=== PATIENT | female | born 1940 | race Caucasian/White ===

== ENCOUNTER 2020-05-10 09:49 | Outpatient (CLI) | payer MEDICARE, SELFPAY ==
--- NOTE | ~2020-05-10 | MR_ITS ---
EXAMINATION: MR brain/brain stem wo con DATE: 05/10/2020 11:51 INDICATION: Glial tumor. Dizziness. TECHNIQUE: Magnetic resonance imaging (MRI) of the brain and brainstem was performed without intraven ous contrast. Sequences included sagittal and axial T1-weighted FSE, axial diffusion-weighted FS EPI, axial T2*-weighted GRE, axial T2-weighted FLAIR Propeller, and axial T2-weighted Propeller. Apparent diffusion coefficient (ADC) maps were created. COMPARISON: None. FINDINGS: In the anteromedial left temporal lobe, there is a 1.5 cm mass is isodense to moore matter o n T1-weighted and T2-weighted images. It is not clear if the mass is intra-axial or extra-axial. Ther e is vasogenic edema in the adjacent white matter. There are scattered areas of nonspecific increased T2-weighted signal intensity elsewhere in the cerebral white matter, which is within normal limits f or the patient's age. There is no intracranial hemorrhage or acute ischemic infarct. The ventricles are normal in size. There is a small left mastoid effusion. The orbits are normal. There is mild muco golden thickening in the ethmoid sinuses. IMPRESSION: 1. 1.5 cm mass in left temporal lobe. The differential diagnosis includes metastatic disease, glioma, and meningioma. Consider postcontrast brain MRI. Reviewed, dictated and finalized at location A. [facility] IMPRESSION: 1. 1.5 cm mass in left temporal lobe. The differential diagnosis includes metas tatic disease, glioma, and meningioma. Consider postcontrast brain MRI.
[2020-05-10 10:28] LABS: Estimated Glomerular Filt Rate 47
== END 2020-05-10 09:50 | disposition home or self-care (01) ==
LOC: CHSIMG 09:55
PROVIDERS: PCP Internal Medicine; Visit Provider Internal Medicine
DX: D49.6 Neoplasm of unspecified behavior of brain (principal)
CPT/HCPCS: 70551

== ENCOUNTER 2020-05-17 10:25 | Outpatient (CLI) | payer MEDICARE, BC, SELFPAY ==
--- NOTE | ~2020-05-17 | MR_ITS ---
EXAMINATION: MR brain/brain stem w con EXAM DATE: 05/17/2020 11:32 INDICATION: Glial tumor/dizziness brain mass, dizziness. Memory issues. TECHNIQUE: Magnetic resonance imaging (MRI) of the brain/brain stem following injection with 20 cc in travenous Multihance contrast. Axial, sagittal and coronal postcontrast T1 weighted sequences obtaine d. Correlation is made to noncontrast brain MRI examination from 05/10/2020. FINDINGS: There is homogeneously enhancing solid mass which is suspected most likely extra-axial give n the small dural tails, and projecting into the left temporal lobe. This measures 1.7 x 1.4 cm. Appe arance to the mass is most consistent with a meningioma. The amount of associated vasogenic edema wit hin the left temporal lobe identified on the previous noncontrast study is more than typically seen f or a meningioma of this size. Therefore exclude more aggressive faster growing histology such as dura l metastatic disease. Most likely not intraparenchymal or primary FLIGHT TEACHER neoplasm. No either areas of abnormal enhancement or masses. No obstructive hydrocephalus or extra-axial collec tions. IMPRESSION: Left temporal dural based mass appearance most consistent with meningioma, but given the amount of associated left temporal vasogenic edema other histology should be considered as well as n eurosurgical consult. 3 month follow-up MR brain without and with contrast. Reviewed, dictated and finalized at location B. CASE MANAGER IMPRESSION: Left temporal dural based mass appearance most consistent with men ingioma, but given the amount of associated left temporal vasogenic edema other histology should be considered as well as neurosurgical consult. 3 month follo w-up MR brain without and with contrast.
== END 2020-05-17 10:26 | disposition home or self-care (01) ==
LOC: CHSIMG 10:27
PROVIDERS: PCP Internal Medicine; Visit Provider Internal Medicine
DX: R42 Dizziness and giddiness (principal); D49.6 Neoplasm of unspecified behavior of brain
CPT/HCPCS: 70552; A9577

== ENCOUNTER 2020-05-31 09:54 | Outpatient (CLI) | payer MEDICARE, BC, SELFPAY ==
--- NOTE | ~2020-05-31 | MR_ITS ---
EXAMINATION: MR cervical spine wo con DATE: 05/31/2020 11:03 INDICATION: Dizziness. Fall. Disorientation. TECHNIQUE: Magnetic resonance imaging (MRI) of the cervical spine was performed without intravenous c ontrast. Sequences included sagittal T2-weighted FSE, sagittal T2-weighted FS FSE, sagittal T1-weight ed FSE, axial MERGE, and axial T2-weighted FSE. COMPARISON: Brain MRI 05/17/2020, 05/10/2020 FINDINGS: Partially visualized is a 14 mm extra-axial mass at the inferior aspect of left temporal lo be consistent with a meningioma. There is associated vasogenic edema. Bone alignment is normal. Verte bral body heights are normal. There is mildly decreased disc height at C3-C4, moderately decreased di sc height at C5-C5 and C5-C6, and severely decreased disc height at C6-C7. The spinal cord signal int ensity is normal. The following disc levels are specifically discussed: C2-C3: The disc does not extend beyond the endplate margin. There is no uncovertebral joint osteoarth ritis. There is severe right and mild left facet joint osteoarthritis. There is no neural foraminal s tenosis. There is no central canal stenosis. C3-C4: The disc is bulging. There is mild bilateral uncovertebral joint osteoarthritis. There is bridget re bilateral facet joint osteoarthritis. There is mild left neural foraminal stenosis. There is no ce ntral canal stenosis. C4-C5: The disc is bulging. There is moderate right and mild left uncovertebral joint osteoarthritis. There is severe bilateral facet joint osteoarthritis. There is moderate right and mild left neural f oraminal stenosis. There is mild central canal stenosis with ventral indentation of the spinal cord. C5-C6: The disc is bulging. There is severe bilateral uncovertebral joint osteoarthritis. There is se santiago bilateral facet joint osteoarthritis. There is mild bilateral neural foraminal stenosis. There i s mild central canal stenosis. C6-C7: The disc is bulging. There is severe bilateral uncovertebral joint osteoarthritis. There is mo derate bilateral facet joint osteoarthritis. There is mild bilateral neural foraminal stenosis. There is mild central canal stenosis. C7-T1: The disc does not extend beyond the endplate margin. There is no uncovertebral joint osteoarth ritis. There is severe bilateral facet joint osteoarthritis. There is mild bilateral neural foraminal stenosis. There is no central canal stenosis. IMPRESSION: 1. Severe cervical spondylosis. 2. 14 mm extra-axial mass inferior to left temporal lobe, consistent with a meningioma. Reviewed, dictated and finalized at location A. R LEAGUE BASEBALL UMPIRE IMPRESSION: 1. Severe cervical spondylosis. 2. 14 mm extra-axial mass inferior to left temporal lobe, consistent with a men ingioma.
== END 2020-05-31 09:55 | disposition home or self-care (01) ==
LOC: CHSIMG 09:57
PROVIDERS: PCP Internal Medicine
DX: M54.2 Cervicalgia (principal); R42 Dizziness and giddiness; W19.XXXA Unspecified fall, initial encounter; M47.892 Other spondylosis, cervical region
CPT/HCPCS: 72141

== ENCOUNTER 2020-11-09 10:17 | Outpatient (CLI) | payer MEDICARE, BC, SELFPAY ==
--- NOTE | ~2020-11-09 | XR_ITS ---
EXAMINATION: XR shoulder RT min 2V INDICATION: Right shoulder pain TECHNIQUE: Four views of the right shoulder are submitted. COMPARISON: None FINDINGS: Normal alignment. No fracture. There is mild osteoarthritis of the acromioclavicular joint and moderate osteoarthritis of the glenohumeral joint which contains calcified loose bodies. Soft tis sues are unremarkable. IMPRESSION: 1. Osteoarthritis. Reviewed, dictated and finalized at location A. IMPRESSION: 1. Osteoarthritis.
== END 2020-11-09 10:18 | disposition home or self-care (01) ==
LOC: CHSIMG 10:22
PROVIDERS: PCP Internal Medicine; Visit Provider Internal Medicine
DX: M25.511 Pain in right shoulder (principal)
CPT/HCPCS: 73030

== ENCOUNTER 2020-11-25 10:20 | Inpatient (IN) | payer MEDICARE, BC, SELFPAY ==
[2020-11-25] VITALS (10 sets, daily range): BP systolic 126–205; BP diastolic 88–99; PULSE 70–90; RESP 18–22; TEMP 36–36.6; O2SAT 92–96; BMI 43.9
--- NOTE | ~2020-11-25 | XR_ITS ---
EXAMINATION: XR chest 2V DATE: 11/26/2020 09:12 INDICATION: Congestive heart failure. TECHNIQUE: Frontal and lateral views of the chest were obtained. COMPARISON: Chest single view 11/25/2020, chest CT 11/25/2020 FINDINGS: There are small pleural effusions. There is mild atelectasis at left lung base. No pneumoth orax. Cardiomegaly is noted. IMPRESSION: 1. Small pleural effusions. 2. Cardiomegaly. Reviewed, dictated and finalized at location A.
--- NOTE | ~2020-11-25 | CT_ITS ---
EXAMINATION: CTA chest PE protocol DATE: 11/25/2020 12:16 INDICATION: Shortness of breath. TECHNIQUE: Computed tomography angiography (CTA) of the chest was performed with 100 mL Omnipaque-350 intravenous contrast timed to evaluate the pulmonary arteries. Coronal maximum intensity projection 3D-reconstructions were created by the technologist. Automated exposure control and iterative reconst ruction technique were employed. The dose-length product was 633.68 mGy-cm. COMPARISON: None. FINDINGS: The lungs demonstrate smooth septal thickening, consistent with mild pulmonary edema. A juan jose cified left lung nodule and calcified left hilar lymph nodes are consistent with old granulomatous di sease. There are small pleural effusions. Cardiomegaly is noted. There are coronary artery calcificat ions. No pericardial effusion. The central pulmonary arteries are enlarged, consistent with pulmonary arterial hypertension. There is no pulmonary embolus. The superior vena cava is duplicated. There is moderate thoracic spondylosis. IMPRESSION: 1. No pulmonary embolus. 2. Mild pulmonary edema. 3. Small pleural effusions. 4. Cardiomegaly. Reviewed, dictated and finalized at location A.
--- NOTE | ~2020-11-25 | XR_ITS ---
EXAMINATION: XR chest 1V portable DATE: 11/25/2020 11:23 INDICATION: Shortness of breath. TECHNIQUE: A single frontal view of the chest was obtained. COMPARISON: None. FINDINGS: There are interstitial opacities in the lower lung zones. There are small pleural effusions . No pneumothorax. The heart size is normal. IMPRESSION: 1. Interstitial opacities in the lower lung zones, consistent with mild atelectasis versus mild pulmo nary edema. 2. Small pleural effusions. Reviewed, dictated and finalized at location A. IMPRESSION: 1. Interstitial opacities in the lower lung zones, consistent with mild atelect asis versus mild pulmonary edema. 2. Small pleural effusions.
--- NOTE | 2020-11-25 10:43 | ECG_ITS ---
Measurements Intervals [place] Rate: 86 P: 66 CO: 224 QRS: -11 QRSD: 85 T: 132 QT: 385 QTc: 461 Interpretive Statements SINUS RHYTHM WITH FIRST DEGREE AV BLOCK LEFT VENTRICULAR HYPERTROPHY AND ST-T CHANGE BASELINE ARTIFACT- I, II, III, AVR, AVL, AVF, V4-V6 ABNORMAL ECG Electronically Signed On 11-26-2020 7:12:09 CDT by Robb Copeland D.O.
[2020-11-25 11:26] LABS: Base Excess ABG 2.1 mmol/L (0-2); HCO3 ABG 26.4 mmol/L (23-29); PO2 ABG 68.6 mmHg (75-85); pH ABG 7.44 (7.35-7.45)
[2020-11-25 11:27] LABS: Device ROOM AIR; Modified Allen's Test Pass; Oxygen Saturation ABG 94.3 % (95-97); Site Drawn LEFT RADIAL
[2020-11-25 11:30] LABS: Add Urine Microscopic? YES; Appearance Urine Sl Cloudy (Clear); Bilirubin Urine Negative (Negative); Blood Urine Negative (Negative); Color Urine Light Yellow (Yellow); Glucose Urine UA Negative (Negative); Ketones Urine Negative (Negative); Leukocyte Esterase Ur Negative (Negative); Nitrate Urine Negative (Negative); Protein Urine Trace (Negative); Specific Grav Ur >= 1.030 (1.010-1.020); Urobilinogen Urine 0.2 mg/dL (0.2-1.0)
[2020-11-25 11:30] LABS: Basophils Absolute Auto 0.06 K/mm3 (0.00-0.10); Basophils Percent Auto 0.8 % (0.0-1.0); Eosinophils Absolute Auto 0.33 K/mm3 (0.02-0.50); Eosinophils Percent Auto 4.5 % (1.0-6.0); Hematocrit 41.9 % (35.0-42.0); Hemoglobin 12.7 g/dL (11.7-13.8); Immature Granulocyte Absolute 0.02 K/mm3 (0.00-0.00); Immature Granulocyte Percent A 0.3 % (0.0-0.0); Mean Corpuscular HGB Conc 30.3 g/dL (32.0-36.0); Mean Corpuscular Hemoglobin 24.8 pg (27.0-31.0); Mean Corpuscular Volume 81.7 fL (78.0-102.0); Mean Platelet Volume 10.7 fl (9.2-11.8); Monocytes Absolute Auto 0.55 K/mm3 (0.10-0.90); Monocytes Percent Auto 7.5 % (2.0-11.0); Neutrophils Absolute Auto 4.5 K/mm3 (1.7-7.2); Neutrophils Percent Auto 60.9 % (50.0-70.0); Platelet Count Result 274 K/mm3 (150-420); Red Blood Count 5.13 M/mm3 (4.20-5.40); White Blood Count 7.3 K/mm3 (4.8-10.8)
[2020-11-25 11:35] LABS: Bacteria Urine 1+ /hpf; RBC Urine None seen /hpf (0-2); Squamous Epithelial Cell Urine Moderate /hpf (Few); WBC Urine 0-3 /hpf (0-3)
[2020-11-25 11:37] LABS: INR 1.1; Partial Thromboplastin Time 21.2 SEC (23.90-30.70); Prothrombin Time 11.8 Seconds (9.50-12.10)
[2020-11-25 11:42] LABS: D Dimer 2.02 mg/L (0.19-0.50); Lactic Acid Reflex 1.8 mmol/L (0.4-2.0)
[2020-11-25 11:46] LABS: Alanine Aminotransferase 21 U/L (14-59); Albumin Level 3.3 g/dL (3.4-5.0); Alkaline Phosphatase 86 U/L (46-116); Anion Gap 13 mmol/L (8-16); Aspartate Amino Transferase 14 U/L (15-37); Bilirubin,Total 0.4 mg/dL (0.00-1.00); Blood Urea Nitrogen 15 mg/dL (7-18); Carbon Dioxide 26 mmol/L (21-32); Chloride 104 mmol/L (98-108); Estimated Glomerular Filt Rate 55; Glucose 185 mg/dL (70-99); NT Pro B Type Natriuretic Pept 4006 pg/mL (0-450); Osmolality Calculated 301 mOsm/kg (285-295); Potassium 3.6 mmol/L (3.5-5.1); Sodium 143 mmol/L (136-145); Troponin I 26.2 ng/L (0.00-60.4)
[2020-11-25 11:46] LABS: SARS-CoV-2 Ag Negative (Negative)
[2020-11-25] MEDS: FUROSEMIDE INJ 40 MG/4 ML VIAL IV PUSH ×2 (12:26→16:46)
--- NOTE | 2020-11-25 12:32 | ED.SOB ---
HPI - SOB/Dyspnea General Chief Complaint: Shortness of Breath/Dyspnea Stated Complaint: SOB,lightheaded, weak, no appetite, constipation Source: patient Mode of arrival: wheelchair Limitations: no limitations History of Present Illness HPI Narrative: this is an 80-year-old female with presents with increasing shortness of breath, she has been having referral sheet of weeks and has gotten worse over last 20 hours with no chest pain no fever chills no nausea or vomiting no flank pain no abdominal pain no dysuria. The patient has a history of hypertension and diabetes and history of asthma 40 to patient. MD elicited complaint: shortness of breath Onset (ago): day(s) Timing: constant Severity: moderate Exacerbating factors: exertion Related Data Home Medications Medication Instructions Recorded Confirmed acetaminophen 500 mg PO QID PRN 11/25/20 11/25/20 albuterol sulfate 1 - 2 puff INHALATION QID 11/25/20 11/25/20 allopurinol 100 mg PO DAILY 11/25/20 11/25/20 duloxetine 30 mg PO DAILY 11/25/20 11/25/20 insulin aspart U-100 1 unit SUBCUT DIRECTED 11/25/20 11/25/20 insulin glargine [Lantus Solostar 1 unit SUBCUT DIRECTED 11/25/20 11/25/20 U-100 Insulin] levothyroxine 50 mcg PO DAILY 11/25/20 11/25/20 meloxicam 15 mg PO DAILY 11/25/20 11/25/20 montelukast 10 mg PO DAILY 11/25/20 11/25/20 Allergies Allergy/AdvReac Type Severity Reaction Status Date / Time Sulfa (Sulfonamide Allergy Itching Verified 11/25/20 10:44 Antibiotics) Review of Systems Review of Systems: All systems reviewed & are unremarkable except as noted in HPI and below PMFSH Past Medical History Medical History Asthma Diabetes mellitus HTN (hypertension) Exam Const: General: no acute distress and alert Orientation/consciousness: patient oriented x3 HENMT: Head: normal to inspection and contusion Eyes: Conjunctivae: conjunctivae normal Pupils: Equal, round and reactive pupils present EOM: EOMs intact bilaterally Direct Ophthalmoscopy: no photophobia Neck: Neck: normal visual inspection Chest: Chest palpation & inspection: normal inspection of the chest Resp: Auscultation: crackles Cardio: Rate: regular rate Rhythm: regular rhythm GI: GI Palp: Yes Soft to palpation Percussion: Yes normal to percussion : General: Yes no CVA tenderness Back/Spine/Pelvis: Back: no CVA tenderness Skin: General skin exam: normal color Rashes: no rashes Neuro: General: patient oriented x3, moves all extremities, no meningeal signs and no focal motor deficits Extrem: General: normal to inspection and no pedal edema Psych: Mental Status: mental status grossly normal Affect: normal affect Course Course Emergency Course: patient reassessment after CTA blood work and EKG and inform the that she has volume overload is consistent with some CHF and will admit the patient with CHF exacerbation. The patient is resting comfortably breathing a little bit easier her O2 sats around 95 to 97%. Vital Signs Vital signs: Vital Signs Temperature 36.6 C 11/25/20 10:25 Pulse Rate 71 11/25/20 10:25 Respiratory Rate 22 H 11/25/20 10:25 Blood Pressure 200/88 H 11/25/20 10:25 Pulse Oximetry 96 11/25/20 10:25 Temperature 36.6 C 11/25/20 10:25 Pulse Rate 71 11/25/20 10:25 Respiratory Rate 22 H 11/25/20 10:25 Blood Pressure 200/88 H 11/25/20 10:25 Pulse Oximetry 96 11/25/20 10:25 MDM - SOB/Dyspnea Lab Data Result diagrams: 11/25/20 11:15 11/25/20 11:15 Labs: Lab Results 11/25/20 11/25/20 11/25/20 Range/Units 11:04 11:06 11:15 WBC 7.3 (4.8-10.8) K/mm3 RBC 5.13 (4.20-5.40) M/mm3 Hgb 12.7 (11.7-13.8) g/dL Hct 41.9 (35.0-42.0) % MCV 81.7 (78.0-102.0) fL MCH 24.8 L (27.0-31.0) pg MCHC 30.3 L (32.0-36.0) g/dL RDW 16.0 H (11.6-14.4) % Plt Count 274 (150-420) K/mm3 MPV 10.7 (9.
--- NOTE | 2020-11-25 13:20 | PM.IMHP ---
H&P: HPI History of Present Illness Date/Time: 11/25/20 13:20 Sruthi Prather is an 80 year old female with a PHMx of DM, HTN, Asthma (Dx'ed 40 years ago), Hypothyroidism, Gout, Neuropathy. Pt presents with about 1+ weeks of increased SOB that became worse over the last 24 hours. Pt states she does not have a Hx of CHF but has been on Lasix in the past. Pt thought she would be able to manage her SOB however this did get worse. She was treating herself with Albuterol that in July of this year. Pt denies fevers, chills, abdominal pains, N/V, CP, urinary symptoms. Pt admits to SOB and she also noticed fluid build up increasing in her legs over the last week. Chief Complaint: SOB Review of Systems Review of Systems: All systems reviewed & are unremarkable except as noted in HPI and below PMFSH Past Medical History Medical History (Updated 11/25/20 @ 14:29 by SALLY Bethea) Asthma Cervical cancer Diabetes mellitus Gout HTN (hypertension) Hypothyroid Surgical History Surgical History (Updated 11/25/20 @ 13:37 by SALLY Bethea) History of bilateral knee replacement History of cholecystectomy History of total abdominal hysterectomy Family History Family History (Updated 11/25/20 @ 13:39 by SALLY Bethea) Father ETOH abuse Mother ETOH abuse Sibling ETOH abuse Grandparent Diabetes mellitus Sibling COPD (chronic obstructive pulmonary disease) Social History Social History (Updated 11/25/20 @ 13:39 by SALLY Bethea) Smoking status: Never smoker Alcohol intake: never Substance use: never Gender identity (if verbalized by the patient): Female Spiritual care concerns: No Meds Home Medications and Allergies Home Medications Medication Instructions Recorded Confirmed Type acetaminophen 500 mg PO QID PRN 11/25/20 11/25/20 History albuterol sulfate 1 - 2 puff INHALATION QID 11/25/20 11/25/20 History allopurinol 100 mg PO DAILY 11/25/20 11/25/20 History duloxetine 30 mg PO DAILY 11/25/20 11/25/20 History insulin aspart U-100 1 unit SUBCUT DIRECTED 11/25/20 11/25/20 History insulin glargine [Lantus Solostar 1 unit SUBCUT DIRECTED 11/25/20 11/25/20 History U-100 Insulin] levothyroxine 50 mcg PO DAILY 11/25/20 11/25/20 History meloxicam 15 mg PO DAILY 11/25/20 11/25/20 History montelukast 10 mg PO DAILY 11/25/20 11/25/20 History Allergies Allergy/AdvReac Type Severity Reaction Status Date / Time Sulfa (Sulfonamide Allergy Itching Verified 11/25/20 10:44 Antibiotics) Vital Signs Vital Signs - 24 hr 11/25/20 10:25 11/25/20 11:40 11/25/20 12:53 Temperature 97.9 F Pulse Rate 71 86 Respiratory Rate 22 H 20 Blood Pressure 200/88 H 180/94 H 185/96 H Pulse Oximetry 96 96 11/25/20 13:10 Temperature Pulse Rate 84 Respiratory Rate 20 Blood Pressure Pulse Oximetry 95 Exam Const: General: cooperative, comfortable, no acute distress, alert, awake, Physically active and other (interested in her health, asks questions) Nutritional Appearance: obese morbidly obese HENMT: Head: normal to inspection and normocephalic Ears: hearing grossly impaired Resp: Effort & Inspection: normal respiratory effort Auscultation: rales bilateral at the base (Posterior) Cardio: Rate: regular rate Rhythm: regular rhythm Heart sounds: S1 normal heart sound present and S2 normal heart sound present GI: GI Palp: Yes Soft to palpation, No Tenderness to palpation present (GI), No Guarding due to palpation present (GI), Yes No hepatosplenomegaly present and Yes Hernia present (abdominal rectus hernia) Auscultation: normal bowel sounds Urinary Catheter: Urinary Catheter: patent and draining and urine clear Skin: General skin exam: normal color and dry skin Neuro: General: oriented to person, oriented to place and oriented to time Cranial nerves: Yes CN's II-XII intact bilaterally (grossly intact) Cognition (Neuro): normal cognition Speech: normal
[2020-11-25] MEDS: methylPREDNISolone SOD SUCC 125 MG VIAL 60 MG IV PUSH ×2 (13:24→22:06)
--- NOTE | 2020-11-25 13:44 | PC.NURSE ---
Patient admitted to room 208 from ED. Able to transfer into bed per self. Oriented to room and call light. HOB elevated.
[2020-11-25 16:40] LABS: Glucose Point of Care 207 mg/dl (65-105)
[2020-11-25 17:11] LABS: Troponin I 28.6 ng/L (0.00-60.4)
[2020-11-25] MEDS: carvediloL 6.25 MG TABLET PO (21:00)
[2020-11-25] MEDS: INSULIN GLARGINE (*BKC) 100 UNITS/ML 25 UNITS SUB-Q (21:16)
[2020-11-25] MEDS: ENOXAPARIN 30 MG/0.3 ML SYRINGE SUB-Q (21:16)
[2020-11-25 23:24] LABS: Troponin I 20.4 ng/L (0.00-60.4)
[2020-11-26] VITALS (12 sets, daily range): BP systolic 146–178; BP diastolic 70–100; PULSE 74–89; RESP 18–20; TEMP 36.2–36.9; O2SAT 92–97
[2020-11-26 05:14] LABS: Basophils Absolute Auto 0.01 K/mm3 (0.00-0.10); Basophils Percent Auto 0.1 % (0.0-1.0); Hematocrit 40.3 % (35.0-42.0); Hemoglobin 12.5 g/dL (11.7-13.8); Immature Granulocyte Absolute 0.04 K/mm3 (0.00-0.00); Immature Granulocyte Percent A 0.5 % (0.0-0.0); Lymphocytes Percent Auto 13.4 % (18.0-42.0); Mean Corpuscular Hemoglobin 25.1 pg (27.0-31.0); Mean Corpuscular Volume 80.8 fL (78.0-102.0); Mean Platelet Volume 11.4 fl (9.2-11.8); Monocytes Absolute Auto 0.09 K/mm3 (0.10-0.90); Monocytes Percent Auto 1.2 % (2.0-11.0); Neutrophils Absolute Auto 6.3 K/mm3 (1.7-7.2); Neutrophils Percent Auto 84.8 % (50.0-70.0); Platelet Count Result 315 K/mm3 (150-420); Red Blood Count 4.99 M/mm3 (4.20-5.40); Red Cell Distribution Width 15.9 % (11.6-14.4); White Blood Count 7.5 K/mm3 (4.8-10.8)
[2020-11-26] MEDS: methylPREDNISolone SOD SUCC 125 MG VIAL 60 MG IV PUSH (05:28)
[2020-11-26 05:38] LABS: Alanine Aminotransferase 21 U/L (14-59); Albumin Level 3.2 g/dL (3.4-5.0); Alkaline Phosphatase 85 U/L (46-116); Anion Gap 12 mmol/L (8-16); Aspartate Amino Transferase 13 U/L (15-37); Bilirubin,Total 0.4 mg/dL (0.00-1.00); Blood Urea Nitrogen 18 mg/dL (7-18); Calcium 8.9 mg/dL (8.5-10.1); Carbon Dioxide 29 mmol/L (21-32); Chloride 101 mmol/L (98-108); Estimated CRCL calculation 43 ml/min; Estimated Glomerular Filt Rate 51; Glucose 206 mg/dL (70-99); Osmolality Calculated 301 mOsm/kg (285-295); Potassium 3.4 mmol/L (3.5-5.1); Sodium 142 mmol/L (136-145); Total Protein 6.8 g/dL (6.4-8.2)
[2020-11-26 05:41] LABS: NT Pro B Type Natriuretic Pept 5924 pg/mL (0-450)
[2020-11-26] MEDS: LEVOTHYROXINE SODIUM 50 MCG TABLET PO (06:06)
[2020-11-26 08:00] LABS: Glucose Point of Care 193 mg/dl (65-105)
[2020-11-26] MEDS: carvediloL 12.5 MG TABLET PO ×2 (08:45→20:17)
[2020-11-26] MEDS: allopurinoL 100 MG TABLET PO (08:45)
[2020-11-26] MEDS: MONTELUKAST SODIUM 10 MG TABLET PO (08:45)
[2020-11-26] MEDS: DULoxetine HCL 30 MG CAPSULE.DR PO (08:46)
[2020-11-26] MEDS: FUROSEMIDE INJ 40 MG/4 ML VIAL IV PUSH ×2 (08:46→16:59)
[2020-11-26] MEDS: ENOXAPARIN 30 MG/0.3 ML SYRINGE SUB-Q ×2 (08:46→20:17)
[2020-11-26] MEDS: polyethylene glycoL 3350 17 GM POWD.PACK PO (10:24)
[2020-11-26] MEDS: lisinopriL 10 MG TABLET PO (11:00)
--- NOTE | 2020-11-26 11:46 | PM.IMPN ---
Progress Note: A&P Assessment and Plan (1) CHF (congestive heart failure): Code(s): I50.9 - Heart failure, unspecified Status: Acute Assessment and Plan: Cardiac Monitoring, VS Q8H, Troponin I Q6H X 3 (first in ER was 26.2 Normal), P-BNP in AM, Repeat Chest image in AM, Pulse Oximetry, Elevate HOB 30`, Lasix 40 mg IV BID, Echocardiogram, Chest x-ray in ER: IMPRESSION: 1. Interstitial opacities in the lower lung zones, consistent with mild atelectasis versus mild pulmonary edema. 2. Small pleural effusions, education on CHF, Coreg 11/26/2020 Telemetry shows NSR, BP a little elevated and Lisinopril was added today, may need to increase tomorrow, Coreg was increased as well, Trop 28.6, 20.4, lungs clear all soriano, follow up chest IMPRESSION: 1. Small pleural effusions. 2. Cardiomegaly. (2) Elevated d-dimer: Code(s): R79.89 - Other specified abnormal findings of blood chemistry Status: Acute Assessment and Plan: CTA obtained: IMPRESSION: 1. No pulmonary embolus. 2. Mild pulmonary edema. 3. Small pleural effusions. 4. Cardiomegaly. Rocephin and Azithromycin given in ER 11/26/2020 Will not treat for potential pneumonia as Pt is in CHF, no SOB or increased WOB (3) Diabetes mellitus: Code(s): E11.9 - Type 2 diabetes mellitus without complications Status: Acute Assessment and Plan: Pt explains that she changes her Lantus dose depending on her glucose level, over 250 she takes 45 units and under 250 she takes 35 units, though this was not explained very clear as she changed the number of Units a few times, for the insulin with her meals she usually takes 10 units at breakfast lunch and dinner unless she eats light then it is 10/22/09, She will be placed on a 2 gm Low Sodium diet and Diabetic Diet, I will start her Lantus at 25 Units HS and have her on a SSI for meals then adjust does as needed, will also continue her Duloxetine, Hypoglycemic protocol in place 11/26/2020 Glucose has been around 200 or lower, ACHS Accu-checks, continue with current regiment (4) Asthma: Code(s): J45.909 - Unspecified asthma, uncomplicated Status: Acute Assessment and Plan: Pt states she was diagnosed 40 years ago and has not had an issue with this in a while, Have her on DuoNeb PRN, Solu-Medrol 60 mg Q8H 11/26/2020 Pt has not needed her DuoNeb, there is not active Asthma, this condition is stable, steroid DC'ed (5) Hypothyroid: Code(s): E03.9 - Hypothyroidism, unspecified Status: Acute Assessment and Plan: Continue Levothyroxine (6) Gout: Code(s): M10.9 - Gout, unspecified Status: Acute Assessment and Plan: Continue Allopurinol Subjective Date/time seen: 11/26/20 11:46 Pt states she believes she is getting better today. Her breathing is better. She denies any wheezing, CP, abdominal pain, fever, or chills. She did not have any concerns or questions at this time. Review of Systems Review of Systems: All systems reviewed & are unremarkable except as noted in HPI and below Exam Const: General: cooperative, comfortable, no acute distress, alert, awake and Physically active Nutritional Appearance: obese morbidly obese Resp: Effort & Inspection: normal respiratory effort Auscultation: clear to auscultation bilaterally, no crackles, no rales, no rhonchi and no wheezes Cardio: Rate: regular rate Rhythm: regular rhythm Heart sounds: S1 normal heart sound present and S2 normal heart sound present GI: GI Palp: Yes Soft to palpation and No Tenderness to palpation present (GI) Auscultation: normal bowel sounds Other: No pain at the Abdominal Rectus Hernia Urinary Catheter: Urinary Catheter: patent and draining, urine dark (little darker since yesterday) and other (minimal sediments) Skin: General skin exam: normal color and dry skin Neuro: General: oriented to person, oriented to place and oriented to time Cranial nerves: Yes CN's II-XII intact bilaterally (rony
[2020-11-26 12:00] LABS: Glucose Point of Care 345 mg/dl (65-105)
[2020-11-26 16:48] LABS: Glucose Point of Care 221 mg/dl (65-105)
[2020-11-26 16:52] LABS: Glucose Point of Care 224 mg/dl (65-105)
[2020-11-26] MEDS: INSULIN GLARGINE (*BKC) 100 UNITS/ML 25 UNITS SUB-Q (20:20)
[2020-11-26 20:25] LABS: Glucose Point of Care 163 mg/dl (65-105)
--- NOTE | 2020-11-26 20:25 | PC.NURSE ---
pt c/o not sleeping well for a few days, requests we ask for a light sleeping pill, charge nurse notified and will contact dr silva
[2020-11-26] MEDS: ZOLPIDEM TARTRATE (*CRX) 5 MG TABLET 10 MG PO (20:50)
--- NOTE | 2020-11-27 01:42 | PC.NURSE ---
Pt. sleeping, RR even and nonlabored, monitor showing NSR, call olguin within pt reach.
[2020-11-27 03:33] VITALS: PULSE 71
[2020-11-27 05:18] LABS: Hematocrit 38.4 % (35.0-42.0); Hemoglobin 11.9 g/dL (11.7-13.8); Mean Corpuscular Hemoglobin 25.2 pg (27.0-31.0); Mean Corpuscular Volume 81.4 fL (78.0-102.0); Mean Platelet Volume 11.4 fl (9.2-11.8); Platelet Count Result 329 K/mm3 (150-420); Red Blood Count 4.72 M/mm3 (4.20-5.40); Red Cell Distribution Width 16.2 % (11.6-14.4)
[2020-11-27 05:27] LABS: Anion Gap 9 mmol/L (8-16); Blood Urea Nitrogen 33 mg/dL (7-18); Calcium 8.8 mg/dL (8.5-10.1); Carbon Dioxide 31 mmol/L (21-32); Chloride 102 mmol/L (98-108); Estimated CRCL calculation 36 ml/min; Estimated Glomerular Filt Rate 41; Glucose 119 mg/dL (70-99); Osmolality Calculated 302 mOsm/kg (285-295); Potassium 3.4 mmol/L (3.5-5.1); Sodium 142 mmol/L (136-145)
[2020-11-27] MEDS: LEVOTHYROXINE SODIUM 50 MCG TABLET PO (06:22)
[2020-11-27 07:40] VITALS: BP 161/76; PULSE 68; PULSE 80; RESP 18; TEMP 36.3; O2SAT 97
[2020-11-27 07:42] LABS: NT Pro B Type Natriuretic Pept 3048 pg/mL (0-450)
[2020-11-27 07:57] LABS: Glucose Point of Care 85 mg/dl (65-105)
[2020-11-27 08:43] VITALS: PULSE 80
[2020-11-27] MEDS: lisinopriL 10 MG TABLET PO (08:43)
[2020-11-27] MEDS: carvediloL 12.5 MG TABLET PO (08:43)
[2020-11-27] MEDS: FUROSEMIDE 20 MG TABLET 10 MG PO (08:43)
[2020-11-27] MEDS: allopurinoL 100 MG TABLET PO (08:44)
[2020-11-27] MEDS: ENOXAPARIN 30 MG/0.3 ML SYRINGE SUB-Q (08:44)
[2020-11-27] MEDS: DULoxetine HCL 30 MG CAPSULE.DR PO (08:44)
[2020-11-27] MEDS: POTASSIUM CHLORIDE 10 MEQ TABLET PO (08:44)
[2020-11-27] MEDS: MONTELUKAST SODIUM 10 MG TABLET PO (08:44)
--- NOTE | 2020-11-27 10:16 | PM.DS ---
DS: Admitting Diagnosis Admitting Diagnosis Admitting Diagnosis: CHF <Grant RandleSALLY Larios - Last Filed: 11/27/20 10:32> DS: Discharge Diagnosis Discharge Diagnosis (1) CHF (congestive heart failure): Code(s): I50.9 - Heart failure, unspecified <Grant RandleSALLY Larios - Last Filed: 11/27/20 10:32> Status: Acute <Grant Jerome SALLY Jules - Last Filed: 11/27/20 10:32> Assessment and Plan: Cardiac Monitoring, VS Q8H, Troponin I Q6H X 3 (first in ER was 26.2 Normal), P-BNP in AM, Repeat Chest image in AM, Pulse Oximetry, Elevate HOB 30`, Lasix 40 mg IV BID, Echocardiogram, Chest x-ray in ER: IMPRESSION: 1. Interstitial opacities in the lower lung zones, consistent with mild atelectasis versus mild pulmonary edema. 2. Small pleural effusions, education on CHF, Coreg 11/26/2020 Telemetry shows NSR, BP a little elevated and Lisinopril was added today, may need to increase tomorrow, Coreg was increased as well, Trop 28.6, 20.4, lungs clear all soriano, follow up chest IMPRESSION: 1. Small pleural effusions. 2. Cardiomegaly. 11/27/2020 Will send Pt home with a low dose of Lasix and Potassium, Pt says breathing is better, slight rales in right base, will order Echo as outpatient. <Grant JerSALLY Larios - Last Filed: 11/27/20 10:32> (2) Elevated d-dimer: Code(s): R79.89 - Other specified abnormal findings of blood chemistry <Grant JerSALLY Larios - Last Filed: 11/27/20 10:32> Status: Acute <Grant RandleSALLY Larios - Last Filed: 11/27/20 10:32> Assessment and Plan: CTA obtained: IMPRESSION: 1. No pulmonary embolus. 2. Mild pulmonary edema. 3. Small pleural effusions. 4. Cardiomegaly. Rocephin and Azithromycin given in ER 11/26/2020 Will not treat for potential pneumonia as Pt is in CHF, no SOB or increased WOB 11/27/2020 ... <Grant MoniqueSALLY valencia - Last Filed: 11/27/20 10:32> (3) Diabetes mellitus: Code(s): E11.9 - Type 2 diabetes mellitus without complications <Grant Jerome SALLY Jules - Last Filed: 11/27/20 10:32> Status: Acute <Grant MoniqueSALLY valencia - Last Filed: 11/27/20 10:32> Assessment and Plan: Pt explains that she changes her Lantus dose depending on her glucose level, over 250 she takes 45 units and under 250 she takes 35 units, though this was not explained very clear as she changed the number of Units a few times, for the insulin with her meals she usually takes 10 units at breakfast lunch and dinner unless she eats light then it is 10/22/09, She will be placed on a 2 gm Low Sodium diet and Diabetic Diet, I will start her Lantus at 25 Units HS and have her on a SSI for meals then adjust does as needed, will also continue her Duloxetine, Hypoglycemic protocol in place 11/26/2020 Glucose has been around 200 or lower, ACHS Accu-checks, continue with current regiment 11/27/2020 Pt will need to follow up with her PCP regarding the above home insulin for better clarification of what she is suppose to take at home. <Grant Jerome SALLY Jules - Last Filed: 11/27/20 10:32> (4) Asthma: Code(s): J45.909 - Unspecified asthma, uncomplicated <Grant Jerome SALLY Jules - Last Filed: 11/27/20 10:32> Status: Acute <Grant Jerome SALLY Jules - Last Filed: 11/27/20 10:32> Assessment and Plan: Pt states she was diagnosed 40 years ago and has not had an issue with this in a while, Have her on DuoNeb PRN, Solu-Medrol 60 mg Q8H 11/26/2020 Pt has not needed her DuoNeb, there is not active Asthma, this condition is stable, steroid DC'ed 11/27/2020 Mild wheezing this AM, will order Pt her Albuterol and have RT give DuoNeb this AM. <SALLY Bethea - Last Filed: 11/27/20 10:32> (5) Hypothyroid: Code(s): E03.9 - Hypothyroidism, unspecified <SALLY Bethea - Last Filed: 11/27/20 10:32> Status: Acute <SALLY Bethea - Last Filed: 11/27/20 10:32> Assessment and Plan: Continue Levothyrox
[2020-11-27 10:18] VITALS: PULSE 72; RESP 20; O2SAT 96
[2020-11-27] MEDS: IPRATROPIUM 0.5 MG/ALBUTEROL SULFATE 2.5 MG AMPUL.NEB 3 ML INHALATION (10:18)
[2020-11-27 10:33] VITALS: PULSE 72; RESP 20; O2SAT 98
--- NOTE | 2020-11-27 11:30 | PC.NURSE ---
Discharge instructions reviewed with patient and friend Kristofer. Patient verbalizes understanding of discharge instructions. Patient dressed herself, taken off floor via wheelchair.
--- NOTE | 2020-11-28 10:13 | PC.NURSE ---
Pt states she received and understood her discharge instructions. She also states I appreciate the care and concern, they were all very good .
== END 2020-11-27 11:30 | disposition home or self-care (01) | DRG 293 ==
LOC: CHSED 10:25 → CHS2ND 12:37
PROVIDERS: Nurse Practitioner Family; Admitting Provider Emergency Medicine; Emergency Provider Emergency Medicine; PCP Internal Medicine; Visit Provider Emergency Medicine
DX: I11.0 Hypertensive heart disease with heart failure (principal); I50.9 Heart failure, unspecified; J45.909 Unspecified asthma, uncomplicated; E11.9 Type 2 diabetes mellitus without complications; E11.40 Type 2 diabetes mellitus with diabetic neuropathy, unspecified; E03.9 Hypothyroidism, unspecified; M10.9 Gout, unspecified; R79.89 Other specified abnormal findings of blood chemistry; Z96.653 Presence of artificial knee joint, bilateral; Z85.41 Personal history of malignant neoplasm of cervix uteri; Z90.49 Acquired absence of other specified parts of digestive tract; Z90.710 Acquired absence of both cervix and uterus
CPT/HCPCS: 36415; 36600; 71045; 71046; 71275; 80048; 80053; 81001; 82805; 82948; 83605; 83735; 83880; 84484; 85025; 85027; 85380; 85610; 85730; 87040; 87426; 93005; 94640; 96374; 99285; A9270; C9803; J0456; J0696; J1650; J1815; J1940; J2930; Q9967

== ENCOUNTER 2020-12-14 11:21 | Outpatient (CLI) | payer MEDICARE, BC, SELFPAY ==
--- NOTE | 2020-12-14 11:26 | ECHO_ITS ---
Patient Info Name: Sruthi Prather Age: 80 years : 1940 Gender: Female Ht: 62 in Wt: 235 lbs BSA: 2.22 m2 HR: 68 bpm BP: 182 / 83 mmHg Exam Date: 12/14/2020 11:30 AM Exam Location: [facility] Patient Status: Outpatient Admit Date: 12/14/2020 Staff Ordering Physician: Grant Jules Carding Doubler: Ruddy Hughes, KEVAN, RT Attending Provider: Grant Jules Referring Physician: Dhara CALLOWAY; Exam Type: CA echo doppler color flow Study Info Indications I50.9 - Heart failure, unspecified Complete two-dimensional, color flow and Doppler transthoracic echocardiogram is performed. Strain analysis performed. Summary 1. Complete two-dimensional, color flow and Doppler transthoracic echocardiogram is performed. 2. Left ventricular chamber dimension is normal. 3. Left ventricular systolic function is normal, estimated at 55-60%. 4. There is mildly increased left ventricular wall thickness. 5. The left ventricular diastolic function is abnormal. 6. E/e' 15 is elevated. 7. Global longitudinal strain is mildly abnormal at -16.0%. 8. Left atrial chamber dimension is mildly enlarged. 9. There is mild aortic valve sclerosis. 10. There is mild aortic valve regurgitation. 11. The mitral valve has moderately calcified annulus. 12. There is trace mitral valve regurgitation. 13. There is mild tricuspid valve regurgitation. 14. Mild pulmonary hypertension, estimated pulmonary arterial systolic pressure is 45 mmHg. 15. Normal inferior vena cava with <50% collapse upon inspiration consistent with elevated right atrial pressure, 10 mmHg. Left Ventricle E/e' 15 is elevated. Global longitudinal strain is mildly abnormal at -16.0%. Left ventricular chamber dimension is normal. Left ventricular systolic function is normal, estimated at 55-60%. There is mildly increased left ventricular wall thickness. The left ventricular diastolic function is abnormal. Right Ventricle Right ventricular systolic function is normal and with normal TAPSE 2.4 cm. Right ventricular chamber dimension is normal. Left Atria Left atrial chamber dimension is mildly enlarged. Right Atria Right atrial chamber dimension is normal. Aortic Valve The aortic valve is trileaflet. There is mild aortic valve sclerosis. There is no aortic valve stenosis. There is mild aortic valve regurgitation. Pulmonic Valve There is no pulmonic regurgitation. Mitral Valve The mitral valve has moderately calcified annulus. There is no mitral valve stenosis. There is trace mitral valve regurgitation. Tricuspid Valve There is mild tricuspid valve regurgitation. Mild pulmonary hypertension, estimated pulmonary arterial systolic pressure is 45 mmHg. Pericardium/Pleural There is no pericardial effusion. Inferior Vena Cava Normal inferior vena cava with <50% collapse upon inspiration consistent with elevated right atrial pressure, 10 mmHg. Aorta The aortic root size at the sinus of Valsalva is normal. Left Ventricular Outflow Tract Name Value Normal LVOT 2D LVOT Diameter 2.0 cm LVOT Doppler LVOT Peak Velocity 92 cm/
== END 2020-12-14 11:22 | disposition home or self-care (01) ==
LOC: CHSIMG 11:22
PROVIDERS: PCP Internal Medicine; Visit Provider Nurse Practitioner Family
DX: I50.9 Heart failure, unspecified (principal)
CPT/HCPCS: 93306

== ENCOUNTER 2021-02-13 15:56 | Observation (INO) | payer MEDICARE, BC, SELFPAY ==
--- NOTE | ~2021-02-13 | XR_ITS ---
EXAMINATION: XR chest 2V EXAM DATE: 02/13/2021 17:12 INDICATION: Dyspnea with productive cough x3wks. CHF . TECHNIQUE: Frontal and lateral projections of the chest obtained and reviewed. Comparison is made to prior examination from 11/26/2020. FINDINGS: Small amount of retrocardiac airspace disease, could be atelectasis or possibly pneumonia. No pneumothorax or pleural effusion. Cardiomediastinal silhouette is normal. There are no osseous ab normalities identified. IMPRESSION: Retrocardiac opacity, most likely subsegmental atelectasis or possibly pneumonia. Reviewed, dictated and finalized at location A. IMPRESSION: Retrocardiac opacity, most likely subsegmental atelectasis or poss ibly pneumonia.
[2021-02-13 15:56] VITALS: BP 185/92; PULSE 65; RESP 17; TEMP 36.6; O2SAT 97
--- NOTE | 2021-02-13 16:10 | ED.SOB ---
HPI - SOB/Dyspnea General Chief Complaint: Shortness of Breath/Dyspnea Stated Complaint: AMB Source: patient, EMS and RN notes reviewed Mode of arrival: EMS Limitations: no limitations History of Present Illness HPI Narrative: Patient states that she was having some incontinence of urine and therefore she stopped taking her Lasix 2 weeks ago. She has become increasingly short of breath over the last 2 weeks and coughing up some green phlegm. EMS gave 40 mg of Lasix IVP with 125 mg of Solu-Medrol and also a sublingual nitro, patient not having any chest pain. She denies fever chills nausea vomiting she denies any dysuria. She has had COVID vaccination x2. MD elicited complaint: shortness of breath Pertinent past history: congestive heart failure Onset (ago): week(s) (2) Timing: constant Severity: moderate Exacerbating factors: exertion and coughing (green phlegm) Relieving factors: nothing Known history of: congestive heart failure Associated symptoms: cough Treatment prior to arrival: none Related Data Home oxygen amount: none Home Medications Medication Instructions Recorded Confirmed Lantus Solostar U-100 Insulin 1 unit SUBCUT DIRECTED 11/25/20 02/13/21 acetaminophen 500 mg PO QID PRN 11/25/20 02/13/21 allopurinol 100 mg PO DAILY 11/25/20 02/13/21 duloxetine 30 mg PO DAILY 11/25/20 02/13/21 insulin aspart U-100 1 unit SUBCUT DIRECTED 11/25/20 02/13/21 levothyroxine 50 mcg PO DAILY 11/25/20 02/13/21 meloxicam 15 mg PO DAILY 11/25/20 02/13/21 montelukast 10 mg PO DAILY 11/25/20 02/13/21 Allergies Allergy/AdvReac Type Severity Reaction Status Date / Time Sulfa (Sulfonamide Allergy Itching Verified 11/25/20 10:44 Antibiotics) Review of Systems Review of Systems: All systems reviewed & are unremarkable except as noted in HPI and below Constitutional: Constitutional: Denies chills and Denies fever(s) Cardiovascular: Cardiovascular: Denies chest pain Respiratory: Respiratory: Reports as per HPI, Reports cough, Reports dyspnea and Denies wheezing Gastrointestinal: Gastrointestinal: Denies nausea and Denies vomiting [facility] [place] Past Medical History Medical History (Updated 02/13/21 @ 18:29 by Alejandro Tolentino MD) Asthma Cervical cancer Diabetes mellitus Gout HTN (hypertension) Hypothyroid Surgical History Surgical History (Updated 11/25/20 @ 13:37 by SALLY Bethea) History of bilateral knee replacement History of cholecystectomy History of total abdominal hysterectomy Family History Family History (Updated 11/25/20 @ 13:39 by SALLY Bethea) Father ETOH abuse Mother ETOH abuse Sibling ETOH abuse Grandparent Diabetes mellitus Sibling COPD (chronic obstructive pulmonary disease) Social History Social History (Updated 11/25/20 @ 13:39 by SALLY Bethea) Smoking status: Never smoker Alcohol intake: never Substance use: never Gender identity (if verbalized by the patient): Female Spiritual care concerns: No Exam Const: General: healthy appearing, no acute distress and alert Nutritional Appearance: well nourished Orientation/consciousness: patient oriented x3 HENMT: Head: normal to inspection Ears: external ears normal Face and sinus: normal facial exam Mouth: Yes moist mucous membranes Eyes: Conjunctivae: conjunctivae normal Pupils: Equal, round and reactive pupils present EOM: EOMs intact bilaterally Neck: Neck: normal visual inspection Resp: Effort & Inspection: normal respiratory effort Auscultation: clear to auscultation bilaterally Cardio: Rate: regular rate Rhythm: regular rhythm GI: GI Palp: Yes Soft to palpation, No Tenderness to palpation present (GI) and No Rebound tenderness present Auscultation: normal bowel sounds Back/Spine/Pelvis: Cervical Spine: cervical ROM normal Thoracic/Lumbar Spine: thoraco-lumbar ROM normal Skin: General skin exam: normal color Rashes: no rashes Neuro: General: patient oriented x3,
[2021-02-13 16:48] LABS: Basophils Percent Auto 0.9 % (0.0-1.0); Eosinophils Absolute Auto 0.25 K/mm3 (0.02-0.50); Eosinophils Percent Auto 2.2 % (1.0-6.0); Hematocrit 45.5 % (35.0-42.0); Hemoglobin 14.2 g/dL (11.7-13.8); Immature Granulocyte Absolute 0.04 K/mm3 (0.00-0.00); Immature Granulocyte Percent A 0.4 % (0.0-0.0); Lymphocytes Absolute Auto 3.52 K/mm3 (1.10-4.50); Lymphocytes Percent Auto 31.5 % (18.0-42.0); Mean Corpuscular HGB Conc 31.2 g/dL (32.0-36.0); Mean Corpuscular Hemoglobin 25.5 pg (27.0-31.0); Mean Corpuscular Volume 81.7 fL (78.0-102.0); Mean Platelet Volume 11.1 fl (9.2-11.8); Monocytes Absolute Auto 0.73 K/mm3 (0.10-0.90); Monocytes Percent Auto 6.5 % (2.0-11.0); Neutrophils Absolute Auto 6.5 K/mm3 (1.7-7.2); Neutrophils Percent Auto 58.5 % (50.0-70.0); Platelet Count Result 343 K/mm3 (150-420); Red Blood Count 5.57 M/mm3 (4.20-5.40); Red Cell Distribution Width 17.2 % (11.6-14.4); White Blood Count 11.2 K/mm3 (4.8-10.8)
[2021-02-13 17:11] LABS: Alanine Aminotransferase 21 U/L (14-59); Albumin Level 3.5 g/dL (3.4-5.0); Alkaline Phosphatase 90 U/L (46-116); Anion Gap 10 mmol/L (8-16); Aspartate Amino Transferase < 10 U/L (15-37); Bilirubin,Total 0.3 mg/dL (0.00-1.00); Blood Urea Nitrogen 18 mg/dL (7-18); Calcium 9.4 mg/dL (8.5-10.1); Carbon Dioxide 29 mmol/L (21-32); Chloride 103 mmol/L (98-108); Estimated Glomerular Filt Rate 42; Glucose 186 mg/dL (70-99); Magnesium 2.1 mg/dL (1.8-2.4); NT Pro B Type Natriuretic Pept 990 pg/mL (0-450); Osmolality Calculated 300 mOsm/kg (285-295); Potassium 4.1 mmol/L (3.5-5.1); Sodium 142 mmol/L (136-145); Total Protein 7.5 g/dL (6.4-8.2)
[2021-02-13 17:12] LABS: Troponin I 18.7 ng/L (0.00-60.4)
[2021-02-13 17:20] LABS: Add Urine Microscopic? NO; Appearance Urine Clear (Clear); Bilirubin Urine Negative (Negative); Blood Urine Negative (Negative); Color Urine Light Yellow (Yellow); Glucose Urine UA Negative (Negative); Ketones Urine Negative (Negative); Leukocyte Esterase Ur Negative LEU/UL (Negative); Nitrate Urine Negative (Negative); Protein Urine Negative (Negative); Urobilinogen Urine 0.2 mg/dL (0.2-1.0); pH Urine 6.5 (5.0-8.0)
[2021-02-13 19:45] VITALS: BP 114/92; PULSE 78; RESP 20; TEMP 37.1; O2SAT 98
[2021-02-13 20:12] VITALS: BMI 41.5
--- NOTE | 2021-02-13 20:14 | PC.NURSE ---
Patient admitted to room 207 per w/c from the ER. Patient is alert, oriented, no c/o pain, ambulates independently, oriented to room and call light, voices understanding.
[2021-02-13 20:47] VITALS: PULSE 82
[2021-02-13] MEDS: carvediloL 12.5 MG TABLET PO (20:47)
[2021-02-13] MEDS: INSULIN GLARGINE (*BKC) 100 UNITS/ML 35 UNITS SUB-Q (22:59)
[2021-02-14] VITALS: BP 186/92; PULSE 82; RESP 20; TEMP 36.6; O2SAT 96
[2021-02-14 00:16] LABS: Glucose Point of Care 230 mg/dl (65-105)
--- NOTE | 2021-02-14 05:02 | PC.NURSE ---
Patient found lying in luis f by her recliner, states that she slipped out of her chair onto the floor, denies pain or injury, denies hitting her head, patient got up per self and went to restroom with assist, then returned to bed.
[2021-02-14 05:13] LABS: Basophils Absolute Auto 0.03 K/mm3 (0.00-0.10); Basophils Percent Auto 0.4 % (0.0-1.0); Hematocrit 44.9 % (35.0-42.0); Hemoglobin 14.1 g/dL (11.7-13.8); Immature Granulocyte Absolute 0.08 K/mm3 (0.00-0.00); Lymphocytes Absolute Auto 1.31 K/mm3 (1.10-4.50); Lymphocytes Percent Auto 15.9 % (18.0-42.0); Mean Corpuscular HGB Conc 31.4 g/dL (32.0-36.0); Mean Corpuscular Hemoglobin 25.6 pg (27.0-31.0); Mean Corpuscular Volume 81.5 fL (78.0-102.0); Mean Platelet Volume 11.1 fl (9.2-11.8); Monocytes Absolute Auto 0.15 K/mm3 (0.10-0.90); Monocytes Percent Auto 1.8 % (2.0-11.0); Neutrophils Absolute Auto 6.7 K/mm3 (1.7-7.2); Neutrophils Percent Auto 80.9 % (50.0-70.0); Platelet Count Result 299 K/mm3 (150-420); Red Blood Count 5.51 M/mm3 (4.20-5.40); Red Cell Distribution Width 16.9 % (11.6-14.4); White Blood Count 8.2 K/mm3 (4.8-10.8)
[2021-02-14 05:26] LABS: Anion Gap 10 mmol/L (8-16); Blood Urea Nitrogen 24 mg/dL (7-18); Calcium 9.6 mg/dL (8.5-10.1); Carbon Dioxide 27 mmol/L (21-32); Chloride 103 mmol/L (98-108); Estimated CRCL calculation 33 ml/min; Estimated Glomerular Filt Rate 39; Glucose 234 mg/dL (70-99); Osmolality Calculated 302 mOsm/kg (285-295); Sodium 140 mmol/L (136-145)
[2021-02-14] MEDS: LEVOTHYROXINE SODIUM 50 MCG TABLET PO (05:59)
[2021-02-14 07:23] LABS: NT Pro B Type Natriuretic Pept 1321 pg/mL (0-450)
[2021-02-14 07:44] VITALS: BP 175/77; PULSE 77; RESP 16; TEMP 36.2; O2SAT 96
[2021-02-14 07:44] LABS: Glucose Point of Care 221 mg/dl (65-105)
[2021-02-14] MEDS: POTASSIUM CHLORIDE 10 MEQ TABLET PO (08:11)
[2021-02-14] MEDS: lisinopriL 10 MG TABLET PO (09:04)
[2021-02-14] MEDS: MONTELUKAST SODIUM 10 MG TABLET PO (09:04)
[2021-02-14] MEDS: DULoxetine HCL 30 MG CAPSULE.DR PO (09:04)
[2021-02-14 09:05] VITALS: PULSE 77
[2021-02-14] MEDS: carvediloL 12.5 MG TABLET PO (09:05)
[2021-02-14] MEDS: allopurinoL 100 MG TABLET PO (09:05)
[2021-02-14] MEDS: MELOXICAM 7.5 MG TABLET 15 MG PO (09:37)
[2021-02-14] MEDS: FUROSEMIDE INJ 40 MG/4 ML VIAL IV PUSH (09:38)
--- NOTE | 2021-02-14 10:33 | PM.SD2 ---
Same Day Admit/Disch: HPI History of Present Illness Chief complaint: PNEUMONIA CHF Narrative: Sruthi Prather is a 80 year old female who is admitted into Observation for Pneumonia, CHF. Pt states her breathing is much better this morning. Her symptoms started about 3 weeks ago and progressively became increasingly more difficult to breath. Pt states that she had a productive cough of thick yellow sputum that occasional became greenish. Pt denies fever, chills, CP, abdominal pain, Nausea or vomiting. PMFSH Past Medical History Medical History Asthma Cervical cancer Diabetes mellitus Gout HTN (hypertension) Hypothyroid Surgical History Surgical History History of bilateral knee replacement History of cholecystectomy History of total abdominal hysterectomy Family History Family History Father ETOH abuse Mother ETOH abuse Sibling ETOH abuse Grandparent Diabetes mellitus Sibling COPD (chronic obstructive pulmonary disease) Social History Social History Smoking status: Never smoker Second hand tobacco smoke exposure: No Alcohol intake: former Substance use: never Substance use type: does not use Gender identity (if verbalized by the patient): Female Spiritual care concerns: No Same Day Admit/Disch: Med Pre-admit Medications Home Medications Medication Instructions Recorded Confirmed Type Lantus Solostar U-100 Insulin 1 unit SUBCUT DIRECTED 11/25/20 02/13/21 History acetaminophen 500 mg PO QID PRN 11/25/20 02/13/21 History allopurinol 100 mg PO DAILY 11/25/20 02/13/21 History duloxetine 30 mg PO DAILY 11/25/20 02/13/21 History insulin aspart U-100 1 unit SUBCUT DIRECTED 11/25/20 02/13/21 History levothyroxine 50 mcg PO DAILY 11/25/20 02/13/21 History meloxicam 15 mg PO DAILY 11/25/20 02/13/21 History montelukast 10 mg PO DAILY 11/25/20 02/13/21 History albuterol sulfate 2 puff INHALATION Q6H PRN #1 device 11/27/20 02/13/21 Rx carvedilol [Coreg] 12.5 mg PO Q12HR #60 tablet 11/27/20 02/13/21 Rx furosemide 10 mg PO DAILY #30 tablet 11/27/20 02/13/21 Rx lisinopril 10 mg PO DAILY #30 tablet 11/27/20 02/13/21 Rx melatonin 10 mg PO HS PRN #30 cap 11/27/20 02/13/21 Rx polyethylene glycol 3350 [Miralax] 17 g PO QAM PRN #14 ea 11/27/20 02/13/21 Rx potassium chloride [K-Tab] 10 meq PO DAILY@0800 #30 tablet 11/27/20 02/13/21 Rx amoxicillin-pot clavulanate 1 tablet PO Q12H 10 Days #20 tablet 02/13/21 Rx furosemide 20 mg PO BID #10 tablet 02/14/21 Rx Exam Const: General: cooperative, healthy appearing, comfortable, no acute distress, alert, awake and Physically active Nutritional Appearance: obese Resp: Effort & Inspection: normal respiratory effort Auscultation: clear to auscultation bilaterally Cardio: Rate: regular rate Heart sounds: S1 normal heart sound present and S2 normal heart sound present GI: GI Palp: Yes Soft to palpation and No Tenderness to palpation present (GI) Auscultation: normal bowel sounds Back/Spine/Pelvis: Back: no CVA tenderness Thoracic/Lumbar Spine: thoracic and lumbar spine normal to inspection Skin: General skin exam: dry skin and pallor Neuro: General: oriented to person, oriented to place and oriented to time Cranial nerves: Yes CN's II-XII intact bilaterally (grossly intact) and Yes facial symmetry Cognition (Neuro): normal cognition Speech: normal speech Extrem: General: full ROM and no pedal edema Psych: Appearance: grossly normal Mental Status: mental status grossly normal Speech and movement: Normal speech and movement present Affect: normal affect Attitude: cooperative Thought process: Normal thought process present DS: Data Data Completed and Pending Labs on day of discharge: Labs from last 24 hours 02/14/21 02/14/21
--- NOTE | 2021-02-14 12:41 | PC.NURSE ---
Pt discharged after being given discharge instructions. Pt verbalized understanding of instructions. RN took pt to the car in a WC.
--- NOTE | 2021-02-19 12:23 | PC.NURSE ---
Pt states she received and understood her discharge instructions. Pt also states everyone was very attentive .
== END 2021-02-14 11:40 | disposition home or self-care (01) ==
LOC: CHSED 19:11 → CHS2ND 19:25
PROVIDERS: Admitting Provider Emergency Medicine; Emergency Provider Emergency Medicine; PCP Internal Medicine; Visit Provider Emergency Medicine
DX: J18.9 Pneumonia, unspecified organism (principal); I11.0 Hypertensive heart disease with heart failure; I50.9 Heart failure, unspecified; J45.909 Unspecified asthma, uncomplicated; E11.9 Type 2 diabetes mellitus without complications; E03.9 Hypothyroidism, unspecified; M10.9 Gout, unspecified; Z85.41 Personal history of malignant neoplasm of cervix uteri; Z96.653 Presence of artificial knee joint, bilateral; Z90.49 Acquired absence of other specified parts of digestive tract; Z90.710 Acquired absence of both cervix and uterus
CPT/HCPCS: 36415; 71046; 80048; 80053; 81003; 82948; 83735; 83880; 84484; 85025; 96365; 96366; 96375; 99285; A9270; G0378; J1815; J1940; J2543

== ENCOUNTER 2021-05-03 16:53 | Outpatient (CLI) | payer MEDICARE, BC, SELFPAY ==
--- NOTE | ~2021-05-03 | CT_ITS ---
EXAMINATION: CT facial bones wo con DATE: 05/03/2021 17:59 INDICATION: Facial injury status post fall TECHNIQUE: Computed tomography (CT) of the facial bones was performed without intravenous contrast. T he dose-length product was 544.23 mGy-cm. Automated exposure control and iterative reconstruction brad hnique were employed. COMPARISON: None FINDINGS: Mandible is intact. Temporomandibular joints are symmetric. The orbits are symmetric withou t evidence for blowout fracture. The zygomatic arches and pterygoid plates are intact. No maxillary f ractures are seen. There are degenerative changes of the visualized upper cervical spine. There is an age-indeterminate left nasal fracture. IMPRESSION: 1. Age-indeterminate left nasal bone fracture. Correlate for point tenderness. Reviewed, dictated and finalized at location A. UTOR OF ESTATE
--- NOTE | ~2021-05-03 | XR_ITS ---
EXAMINATION: XR chest 2V 05/03/2021 18:00 INDICATION: Chest pain after fall PROCEDURE: 2 view chest COMPARISON: 02/13/2021 FINDINGS: The lungs are clear. The cardiomediastinal silhouette is within normal limits. There are no pleural effusions. There is no pneumothorax suspected. IMPRESSION: 1: NO ACUTE CARDIOPULMONARY DISEASE. Reviewed, dictated and finalized at location A. NGINEER
--- NOTE | ~2021-05-03 | XR_ITS ---
XR shoulder RT min 2V 05/03/2021 17:59 Indication: Right shoulder pain after fall Procedure: 5 views right shoulder Comparison: 11/09/2020 Findings: Moderate osteoarthritis of the right shoulder with loose bodies adjacent to the joint space . Normal mineralization. No significant soft tissue abnormality. No foreign bodies. No acute fracture is identified. 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 Reviewed, dictated and finalized at location A. 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
--- NOTE | ~2021-05-03 | CT_ITS ---
EXAMINATION: CT BRAIN W/O DATE: 05/03/2021 18:00 INDICATION: Status post fall. TECHNIQUE: Computed tomography (CT) of the head was performed without intravenous contrast. The dose- length product was 681.00 mGy-cm. Automated exposure control and iterative reconstruction technique w ere employed. COMPARISON: No prior studies for comparison. FINDINGS: Normal brain parenchymal volume for age. Normal moore-white differentiation. No acute intrac ranial hemorrhage, infarction, mass or mass effect. There are scattered mild periventricular and subc ortical white matter changes, most likely related to small vessel ischemic disease (microangiopathy). There are chronic bilateral lacunar infarctions. No ventriculomegaly or midline shift. Midline sagittal images demonstrate a normal corpus callosum, c raniovertebral junction and sella turcica. Basilar cisterns are patent. Paranasal sinuses and mastoids are pneumatized. No depressed skull fractures. IMPRESSION: 1. No acute intracranial abnormality. 2: Chronic bilateral lacunar infarctions. 3: Chronic age-related findings. Reviewed, dictated and finalized at location A. NSED MORTGAGE LOAN OFFICER
--- NOTE | ~2021-05-03 | XR_ITS ---
XR wrist LT 2V 05/03/2021 17:59 Indication: Left wrist pain Procedure: 4 views left wrist Comparison: No prior studies for comparison. Findings: There is osteoarthritis of the first carpometacarpal and triscaphe joints. There is a small loose body distal to the ulna, likely degenerative. No acute fracture or traumatic malalignment. The re is generalized osteopenia. Impression: 1: Polyarticular osteoarthritis of the left wrist. Reviewed, dictated and finalized at location A. DESIGNER Impression: 1: Polyarticular osteoarthritis of the left wrist.
[2021-05-03 18:09] LABS: Hematocrit 45.6 % (35.0-42.0); Hemoglobin 13.9 g/dL (11.7-13.8); Mean Corpuscular HGB Conc 30.5 g/dL (32.0-36.0); Mean Corpuscular Hemoglobin 26.8 pg (27.0-31.0); Mean Platelet Volume 11.2 fl (9.2-11.8); Platelet Count Result 263 K/mm3 (150-420); Red Blood Count 5.18 M/mm3 (4.20-5.40); Red Cell Distribution Width 15.9 % (11.6-14.4); White Blood Count 8.9 K/mm3 (4.8-10.8)
[2021-05-03 18:10] LABS: Add Urine Microscopic? YES; Appearance Urine Clear (Clear); Bilirubin Urine Negative (Negative); Blood Urine Negative (Negative); Color Urine Yellow (Yellow); Glucose Urine UA Negative (Negative); Ketones Urine Trace (Negative); Leukocyte Esterase Ur Negative LEU/UL (Negative); Nitrate Urine Negative (Negative); Protein Urine Negative (Negative); Specific Grav Ur 1.025 (1.010-1.020); Urobilinogen Urine 0.2 mg/dL (0.2-1.0); pH Urine 5.5 (5.0-8.0)
[2021-05-03 18:16] LABS: Bacteria Urine 1+ /hpf; RBC Urine 0-2 /hpf (0-2); Squamous Epithelial Cell Urine Few /hpf (Few)
[2021-05-03 18:45] LABS: Alanine Aminotransferase 16 U/L (14-59); Albumin Level 3.5 g/dL (3.4-5.0); Alkaline Phosphatase 103 U/L (46-116); Anion Gap 8 mmol/L (8-16); Aspartate Amino Transferase 13 U/L (15-37); Bilirubin,Total 0.4 mg/dL (0.00-1.00); Blood Urea Nitrogen 13 mg/dL (7-18); Carbon Dioxide 31 mmol/L (21-32); Chloride 103 mmol/L (98-108); Estimated Glomerular Filt Rate > 60; Glucose 126 mg/dL (70-99); Osmolality Calculated 296 mOsm/kg (285-295); Potassium 4.2 mmol/L (3.5-5.1); Sodium 142 mmol/L (136-145); Total Protein 6.8 g/dL (6.4-8.2)
== END 2021-05-03 16:54 | disposition home or self-care (01) ==
LOC: CHSIMG 16:56
PROVIDERS: PCP Internal Medicine; Visit Provider Internal Medicine
DX: S09.90XA Unspecified injury of head, initial encounter (principal); M25.511 Pain in right shoulder; M25.532 Pain in left wrist; R07.9 Chest pain, unspecified; R55 Syncope and collapse; E11.65 Type 2 diabetes mellitus with hyperglycemia
CPT/HCPCS: 36415; 70450; 70486; 71046; 73030; 73100; 80053; 81001; 83036; 85027

== ENCOUNTER 2021-06-27 12:30 | Emergency (ER) | payer MEDICARE, BC, SELFPAY ==
[2021-06-27] VITALS (10 sets, daily range): BP systolic 166–206; BP diastolic 74–87; PULSE 63–73; RESP 16–20; TEMP 36.1–36.6; O2SAT 97–100
--- NOTE | ~2021-06-27 | CT_ITS ---
EXAMINATION: CT abdomen pelvis w con DATE: 06/27/2021 14:29 INDICATION: Anemia and black tarry stools since fall in April 2021. TECHNIQUE: Computed tomography (CT) of the abdomen and pelvis was performed with 100 cc Omnipaque 350 intravenous contrast. Automated exposure control and iterative reconstruction technique were employe d. Exam dose: 1102.45 mGy-cm total exam DLP. COMPARISON: None. FINDINGS: The lung bases are clear of infiltrate or consolidation. There is cardiomegaly. Coronary ar oral calcifications. There is extensive calcification of the descending thoracic aorta and abdominal aorta, without aneury sm. 11 mm right hepatic cyst. There is mild intrahepatic bile duct prominence consistent with postcholecy stectomy state. No pancreatic mass lesion or calcification or ductal dilatation. Spleen measures 11 cm approximate vertical dimension, within normal range. There are some calcified s plenic granulomas. Normal morphology of the adrenal glands. No renal mass lesion or urinary tract calculus or hydroureteronephrosis. The urinary bladder appears unremarkable other than impression by a huge septated cystic mass in the left pelvic area extending i nto the abdomen slightly above the level of the umbilicus. This measures up to 10.7 x 17.2 x 13.5 cm dimension. This is likely of ovarian origin. Gynecologic consult is recommended. The urinary bladder is unremarkable. The uterus is absent. 3 x 3.8 cm duodenal diverticulum, which contains an approximately 4 x 9 mm disc-shaped opaque density , possibly a medication tablet. There is a prominent amount of fecal material in the colon; no bowel obstruction is evident. The cecu m is medially directed consistent with retained cecal mesentery. Small fat-containing umbilical herni a Degenerative changes of the thoracic spine and lumbar spine, including severe degenerative disc disea se at L3-4 and L4-5 and prominent degenerative change at the lumbar and lumbosacral facet joints. Vipul ateral hip osteoarthritis. IMPRESSION: Complex largely multi septated cystic huge mass of left pelvic area extending slightly s uperior to the umbilicus, likely of ovarian origin. Gynecological surgical consultation is recommende d. 11 mm hepatic cyst Duodenal diverticulum Reviewed, dictated and finalized at [facility]. Reviewed, dictated and finalized at location A. X RAY SERVICE ENGINEER IMPRESSION: Complex largely multi septated cystic huge mass of left pelvic are a extending slightly superior to the umbilicus, likely of ovarian origin. Gynec ological surgical consultation is recommended. 11 mm hepatic cyst Duodenal diverticulum
--- NOTE | ~2021-06-27 | CT_ITS ---
EXAMINATION: CT brain wo con DATE: 06/27/2021 14:27 INDICATION: One month of weakness with chronic blurred vision, dizziness and lightheadedness. TECHNIQUE: Computed tomography (CT) of the head was performed without intravenous contrast. Sagittal and coronal reconstructions were performed. The mA was adjusted according to patient size. Iterative reconstruction technique was employed. The dose-length product was 605.33 mGy-cm. COMPARISON: head CT dated 05/03/2021 FINDINGS: No acute intracranial hemorrhage, acute infarction or abnormal extra axial fluid collection. Region o f previously identified vasogenic edema in the left temporal lobe is somewhat obscured by streak kuldeep fact. This surrounds a subtle 1.5 cm mass which is not significantly changed in size since MRI dated 05/17/2020 at which time the extra-axial location imaging features favor a meningioma. There is addit ional mild scattered white matter hypoattenuation consistent with chronic small vessel ischemic disea se. Ventricles are normal and symmetric. The orbits, paranasal sinuses and mastoid air cells are nor mal. Chronic hyperostosis frontalis. IMPRESSION: 1. No acute intracranial process. 2. Persistent vasogenic edema in the left temporal lobe surrounding and unchanged 1.5 cm mass is bett er appreciated on the prior MRI with MR imaging features and lack of interval change most consistent with a meningioma. 3. Mild scattered white matter hypoattenuation consistent with chronic small vessel ischemic disease. Reviewed, dictated and finalized at location [facility]. NIC CHEMIST IMPRESSION: 1. No acute intracranial process. 2. Persistent vasogenic edema in the left temporal lobe surrounding and unchang ed 1.5 cm mass is better appreciated on the prior MRI with MR imaging features and lack of interval change most consistent with a meningioma. 3. Mild scattered white matter hypoattenuation consistent with chronic small ve ssel ischemic disease.
--- NOTE | ~2021-06-27 | XR_ITS ---
EXAMINATION: XR chest 1V portable DATE: 06/27/2021 14:31 INDICATION: Weakness and anemia TECHNIQUE: frontal view of the chest was obtained. COMPARISON: Chest radiograph dated 05/03/2021 FINDINGS: The lungs remain clear with no focal airspace opacities, pulmonary edema, pleural effusion or pneumot horax. Mild cardiomegaly. Atherosclerotic aorta. Cholecystectomy clips in right upper quadrant. IMPRESSION: 1. No acute cardiopulmonary disease. Reviewed, dictated and finalized at location A. S PROGRAM MANAGER
--- NOTE | 2021-06-27 13:13 | ECG_ITS ---
Measurements Intervals [place] Rate: 51 P: 60 NC: 230 QRS: -5 QRSD: 92 T: 57 QT: 422 QTc: 391 Interpretive Statements SINUS BRADYCARDIA WITH FIRST DEGREE AV BLOCK VOLTAGE CRITERIA FOR LVH BORDERLINE R WAVE PROGRESSION, ANTERIOR LEADS CONSIDER INFERIOR INFARCT, AGE INDETERMINATE ABNORMAL ECG Electronically Signed On 06-27-2021 14:48:42 [facility] by Robb Copeland D.O.
[2021-06-27 13:39] LABS: Basophils Absolute Auto 0.04 K/mm3 (0.00-0.10); Basophils Percent Auto 0.6 % (0.0-1.0); Eosinophils Absolute Auto 0.21 K/mm3 (0.02-0.50); Hemoglobin 7.6 g/dL (11.7-13.8); Immature Granulocyte Absolute 0.04 K/mm3 (0.00-0.00); Immature Granulocyte Percent A 0.6 % (0.0-0.0); Lymphocytes Absolute Auto 2.09 K/mm3 (1.10-4.50); Lymphocytes Percent Auto 30.3 % (18.0-42.0); Mean Corpuscular HGB Conc 30.4 g/dL (32.0-36.0); Mean Corpuscular Hemoglobin 27.3 pg (27.0-31.0); Mean Corpuscular Volume 89.9 fL (78.0-102.0); Mean Platelet Volume 11.3 fl (9.2-11.8); Monocytes Absolute Auto 0.61 K/mm3 (0.10-0.90); Monocytes Percent Auto 8.9 % (2.0-11.0); Neutrophils Absolute Auto 3.9 K/mm3 (1.7-7.2); Neutrophils Percent Auto 56.6 % (50.0-70.0); Platelet Count Result 268 K/mm3 (150-420); Red Blood Count 2.78 M/mm3 (4.20-5.40); Red Cell Distribution Width 16.6 % (11.6-14.4); White Blood Count 6.9 K/mm3 (4.8-10.8)
[2021-06-27] MEDS: SODIUM CHLORIDE 0.9% IV 1,000 ML 150 ML IV CONT (13:39)
[2021-06-27] MEDS: PANTOPRAZOLE SODIUM IV 40 MG VIAL IV PUSH (13:40)
[2021-06-27 13:53] LABS: Estimated CRCL calculation 49 ml/min; Estimated Glomerular Filt Rate > 60
[2021-06-27 13:57] LABS: Alanine Aminotransferase 16 U/L (14-59); Alkaline Phosphatase 78 U/L (46-116); Anion Gap 10 mmol/L (8-16); Aspartate Amino Transferase < 10 U/L (15-37); Bilirubin,Total 0.3 mg/dL (0.00-1.00); Blood Urea Nitrogen 12 mg/dL (7-18); Calcium 8.4 mg/dL (8.5-10.1); Carbon Dioxide 28 mmol/L (21-32); Chloride 101 mmol/L (98-108); Glucose 123 mg/dL (70-99); Osmolality Calculated 288 mOsm/kg (285-295); Sodium 139 mmol/L (136-145); Total Protein 6.3 g/dL (6.4-8.2)
[2021-06-27 13:59] LABS: Lactic Acid Reflex 0.6 mmol/L (0.4-2.0)
[2021-06-27] MEDS: SODIUM CHLORIDE 0.9% IV 250 ML 30 ML IV CONT (14:45)
[2021-06-27 14:50] LABS: Add Urine Microscopic? NO; Appearance Urine Clear (Clear); Bilirubin Urine Negative (Negative); Blood Urine Negative (Negative); Color Urine Light Yellow (Yellow); Glucose Urine UA Negative (Negative); Ketones Urine Negative (Negative); Leukocyte Esterase Ur Negative (Negative); Nitrate Urine Negative (Negative); Protein Urine Negative (Negative); Urobilinogen Urine 0.2 mg/dL (0.2-1.0)
--- NOTE | 2021-06-27 15:26 | ED.WEAKNESS ---
HPI - Weakness General Chief complaint: Weakness Stated complaint: AMBULANCE Time Seen by Provider: 06/27/21 12:34 Source: patient and RN notes reviewed Mode of arrival: ambulatory Limitations: no limitations History of Present Illness MD Complaint: generalized weakness Onset (ago): week(s) (6) Duration: constant Location: generalized Migration: none Severity: similar to previous episodes (no acute pain in the ED. ) Relieving factors: none Exacerbating factors: none Context: trauma/injury (Pt hit her lower abdomen 6 weeks ago and had black, tarry stool) Related Data Home Medications Medication Instructions Recorded Confirmed Lantus Solostar U-100 Insulin 1 unit SUBCUT DIRECTED 11/25/20 06/27/21 allopurinol 100 mg PO DAILY 11/25/20 06/27/21 duloxetine 30 mg PO DAILY 11/25/20 06/27/21 insulin aspart U-100 1 unit SUBCUT DIRECTED 11/25/20 06/27/21 levothyroxine 50 mcg PO DAILY 11/25/20 06/27/21 Allergies Allergy/AdvReac Type Severity Reaction Status Date / Time Sulfa (Sulfonamide Allergy Itching Verified 06/27/21 12:50 Antibiotics) Review of Systems Review of Systems: All systems reviewed & are unremarkable except as noted in HPI and below PMFSH Past Medical History Medical History Anemia Asthma Cervical cancer Diabetes mellitus GI bleed Gout HTN (hypertension) Hypothyroid Surgical History Surgical History History of bilateral knee replacement History of cholecystectomy History of total abdominal hysterectomy Family History Family History Father ETOH abuse Mother ETOH abuse Sibling ETOH abuse Grandparent Diabetes mellitus Sibling COPD (chronic obstructive pulmonary disease) Social History Social History Smoking status: Never smoker Second hand tobacco smoke exposure: No Alcohol intake: former Substance use: never Substance use type: does not use Gender identity (if verbalized by the patient): Female Spiritual care concerns: No Exam Const: General: no acute distress and alert Nutritional Appearance: obese Orientation/consciousness: patient oriented x3 Limitations: no limitations HENMT: Head: normal to inspection Ears: external ears normal, TM's normal bilaterally and EAC's normal General nose exam: Normal external nose present and Normal nares present Mouth: Yes lip normal and Yes moist mucous membranes Teeth and gingiva: dentition normal Throat: posterior oropharynx normal Eyes: Conjunctivae: conjunctivae normal Pupils: Equal, round and reactive pupils present EOM: EOMs intact bilaterally Neck: Neck: normal visual inspection Chest: Chest palpation & inspection: normal inspection of the chest Resp: Effort & Inspection: normal respiratory effort Auscultation: clear to auscultation bilaterally Cardio: Rate: regular rate Rhythm: regular rhythm GI: GI Palp: Yes Soft to palpation and No Tenderness to palpation present (GI) Auscultation: normal bowel sounds Rectal Exam: No heme positive stool : General: Yes bladder normal to palpation and Yes no CVA tenderness Back/Spine/Pelvis: Back: no CVA tenderness Skin: General skin exam: normal color Neuro: General: patient oriented x3, moves all extremities, no meningeal signs, no focal motor deficits and CN's II-XI intact bilaterally Extrem: General: normal to inspection and no pedal edema Psych: Appearance: grossly normal and well kempt Mental Status: mental status grossly normal Affect: normal affect Attitude: cooperative Thought content: Yes Normal thought content present Course Course Emergency Course: Pt was stable and pain-free in the ED. For transfer for GI and Principal Account Clerk REAL ESTATE FIRM MANAGER/PA Physician Supervision VSS. no acute GI loss. Reevaluation(s) Date: 06/27/21 Time: 13:26
--- NOTE | 2021-06-27 15:44 | PC.NURSE ---
RN called [facility] to start a transfer.
[2021-06-27 16:50] LABS: Occult Blood Negative (Negative)
--- NOTE | 2021-06-27 17:32 | PC.NURSE ---
Spoke to Grabiel bell Reynolds who states she has not heard from the hospitalist that the patient was accepted. States she will look into it and get back to us.
[2021-06-27 18:31] LABS: Hematocrit 27.7 % (35.0-42.0); Hemoglobin 8.5 g/dL (11.7-13.8)
[2021-06-27 18:53] LABS: SARS-CoV-2 Ag Negative (Negative)
== END 2021-06-27 19:08 | disposition short-term general hospital (02) ==
PROVIDERS: Emergency Provider Emergency Medicine; PCP Internal Medicine
DX: R19.00 Intra-abdominal and pelvic swelling, mass and lump, unspecified site (principal); D64.9 Anemia, unspecified; K29.51 Unspecified chronic gastritis with bleeding; Z20.822 Contact with and (suspected) exposure to COVID-19; E11.9 Type 2 diabetes mellitus without complications; I10 Essential (primary) hypertension; E03.9 Hypothyroidism, unspecified
CPT/HCPCS: 36415; 36430; 70450; 71045; 74177; 80053; 81003; 82272; 83605; 85014; 85018; 85025; 86850; 86900; 86901; 86920; 87426; 93005; 96361; 96374; 99285; C9113; C9803; J7030; J7050; P9016; Q9967

== ENCOUNTER 2021-06-27 19:47 | Inpatient (IN) | payer MEDICARE, BC, SELFPAY ==
--- NOTE | ~2021-06-27 | US_ITS ---
EXAMINATION: US pelvic complete EXAM DATE: 06/28/2021 09:28 INDICATION: Pelvic mass on CT. TECHNIQUE: Pelvic transabdominal sonogram was performed. There are multiple grayscale and Doppler im ages available for interpretation. Correlation is made to CT abdomen pelvis same date. FINDINGS: Status post hysterectomy. Unremarkable vaginal cuff. No free pelvic fluid. Right adnexa: The ovary is not identified. There is no adnexal mass. 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 Recommend histologic correlation. IMPRESSION: Complex cystic left ovarian 17 cm mass; histologic correlation indicated. Reviewed, dictated and finalized at location B. EILLANCE SENSOR OPERATOR IMPRESSION: Complex cystic left ovarian 17 cm mass; histologic correlation lupis rojas.
[2021-06-27 19:40] VITALS: BP 185/79; PULSE 72; RESP 16; TEMP 36.1; O2SAT 98; BMI 40.8
--- NOTE | 2021-06-27 19:50 | ADMGEN ---
This patient, Sruthi Prather, was admitted to 3 [facility] Surg Room 314-01. Patient/family oriented to hospital policies and general routines including ID bracelet, bed and alarms, visiting hours, pain management, procedures, bathroom and other care routines, personal items, smoking policy, room service/diet, and visiting hours. Information on how to activate the Rapid Response Team has been discussed. Patient/Family are encouraged to report perceived risks to care and to ask questions if they do not understand what they are told or what they should do.
[2021-06-27 20:25] VITALS: BP 185/79; PULSE 72; RESP 16; TEMP 36.1; O2SAT 98; BMI 40.8
--- NOTE | 2021-06-27 20:34 | PCCCNOTE ---
Written direct admission, no order in system, called to Evonne PEREZ, confirmed observation order for Med/surg under Loi. Order placed.
--- NOTE | 2021-06-27 22:19 | PM.IMHP ---
H&P: HPI History of Present Illness Date/Time: 06/27/21 22:19 Chief Complaint: Generalized weakness anemia Narrative: This is a 81-year-old female presents to the ED today after she was advised by her primary care doctor to get evaluated due to some abnormal labs. She is states that her NS dates back to March when she had a fall when she was walking outside and possibly lost her consciousness transiently. She was found to have fracture in her nose bridge that time. This is all healed now later during Aki time she bumped her back on her walker and L and bruised and lost balance and fell without any loss of consciousness. She has been feeling weak since then. During that same time she started noticing dark tarry stool for almost about 10 days and resolve after that. She has not felt well since then and has been having tiredness fatigue not feeling well and generalized weakness and hence went to see her regular doctor yesterday. She had her blood work done and today she got a call from her doctor to go to the ER due to low blood counts. She denies any chest pain or shortness of breath. She does have chronic leg swelling is about the same. She denies any abdominal pain or nausea vomiting. She also denies any fever or chills or cough. She denies taking any blood thinners. She also denies taking [id number] NSAIDs. However she is noted to have meloxicam as 1 of her medication at home. ED evaluation vitals stable except for hypertension CBC revealed hemoglobin of 7.6 normal WBC count normal platelet BMP is normal LFT normal urinalysis is negative lactic acid is 0.6 stool occult blood came back negative. EKG with sinus bradycardia with first-degree AV block LVH Baseline hemoglobin prior to this dating back to 05/03/2021 was normal at 13.9 PT PTT not checked SARs COVID test negative Chest x-ray no acute cardiopulmonary disease Abdomen pelvis CT scan 06/27/2021: Complex largely multi-septated cystic use mass of left pelvic area extending up To the umbilicus likely of ovarian origin gynecological surgical consultation is recommended 11 mm hepatic cyst and a duodenal diverticulum CT head no acute intracranial process, persistent vasogenic edema and left temporal lobe surrounding an unchanged 1.5 cm mass is better appreciated on the prior MRI with MR imaging features and lack of interval change most consistent with meningioma. Mild scattered white matter hypoattenuation consistent with chronic small-vessel ischemic disease Echo 12/06 EF 55-60% mildly increased left ventricular wall thickness abnormal diastolic function mild aortic valve sclerosis mild AR moderately calcified mitral valve annulus trace MR trace TR mild pulmonary hypertension 45 mm Hg Review of Systems Review of Systems: - CONSTITUTIONAL: Denies weight loss, fever and chills. - HEENT: Denies changes in vision and hearing - RESPIRATORY: Denies SOB and cough. - CV: Denies palpitations and CP. - GI: Denies abdominal pain, nausea, vomiting and diarrhea. - : Denies dysuria and urinary frequency. - MSK: Denies myalgia and joint pain. - SKIN: Denies rash and pruritus. - NEUROLOGICAL: Denies headache and syncope. Reports generalized weakness - PSYCHIATRIC: Denies recent changes in mood. Denies anxiety and depression. All systems reviewed & are unremarkable except as noted in HPI and below Constitutional: Constitutional: Reports fatigue and Reports weakness Neurologic: Reports weakness Endocrine: Endocrine: Reports fatigue [facility] Past Medical History Medical History Anemia Asthma Cervical cancer Diabetes mellitus GI bleed Gout HTN (hypertension) Hypothyroid Surgical History Surgical History History of bilateral knee replacement History of cholecystectomy History of total abdominal hysterectomy Family History Family History (Reviewed 06/27/21
[2021-06-27 23:39] LABS: INR 1.1; Immature Reticulocyte Fraction 26.9 % (3.0-15.9); Partial Thromboplastin Time 24.8 SECONDS (22.3-36.8); Prothrombin Time 14.3 Seconds (11.1-14.7); Reticulocyte Hemoglobin Conten 22.5 pg (28.2-35.7); Reticulocyte Percent 3.81 % (0.7-4.3); Reticulocytes Absolute 0.11 B/L (32.2-175.7)
[2021-06-27 23:41] LABS: Alanine Aminotransferase 10 U/L (4-35); Albumin Level 3.3 g/dL (3.5-5.1); Alkaline Phosphatase 77 U/L (38-126); Anion Gap 5 mmol/L (8-16); Aspartate Amino Transferase 17 U/L (14-36); Bilirubin,Total 0.5 mg/dL (0.2-1.3); Blood Urea Nitrogen 10 mg/dL (7-17); Calcium 8.7 mg/dL (8.4-10.2); Carbon Dioxide 23 mmol/L (22-30); Chloride 106 mmol/L (98-107); Estimated CRCL calculation 58 ml/min; Estimated Glomerular Filt Rate > 60; Glucose 127 mg/dL (65-110); Magnesium 2.2 mg/dL (1.6-2.3); Potassium 3.7 mmol/L (3.4-5.0); Sodium 134 mmol/L (137-145)
[2021-06-27] MEDS: carvediloL 12.5 MG TABLET PO (23:50)
[2021-06-27 23:57] LABS: Glucose Point of Care 106 mg/dl (65-105)
[2021-06-28] VITALS (12 sets, daily range): BP systolic 148–180; BP diastolic 54–78; PULSE 56–86; RESP 16–20; TEMP 36.2–36.6; O2SAT 96–100
[2021-06-28 01:03] LABS: Lactate Dehydrogenase 429 U/L (313-618)
[2021-06-28 01:22] LABS: Iron 54 ug/dL (37-170)
[2021-06-28 01:28] LABS: Percent Iron Saturation 16 % (20-50)
[2021-06-28 03:14] LABS: Folic Acid > 20.0 ng/mL (2.76->20)
--- NOTE | 2021-06-28 04:05 | PC.NURSE ---
pt arrived with 20 per right ac clean, dry, and intact.
[2021-06-28] MEDS: LEVOTHYROXINE SODIUM 50 MCG TABLET PO (06:04)
[2021-06-28 07:52] LABS: Glucose Point of Care 140 mg/dl (65-105)
[2021-06-28 07:53] LABS: Basophils Percent Auto 0.6 % (0.2-1.2); Eosinophils Absolute Auto 0.2 K/mm3 (0-0.3); Eosinophils Percent Auto 2.4 % (0-4.4); Hematocrit 28.3 % (37.0-47.0); Hemoglobin 8.2 g/dL (12.0-15.0); Immature Granulocyte Absolute 0.03 K/mm3 (0.00-0.031); Immature Granulocyte Percent A 0.4 % (0-0.5); Immature Platelet Fraction Pct 5.7 % (0.9-11.2); Lymphocytes Absolute Auto 2.22 K/mm3 (0.9-3.2); Lymphocytes Percent Auto 33.3 % (18.3-44.2); Mean Corpuscular Hemoglobin 27.7 pg (26-34); Mean Corpuscular Volume 95.6 fl (80-100); Mean Platelet Volume 12.7 fl (7.4-10.4); Monocytes Absolute Auto 0.5 K/mm3 (0.1-0.6); Monocytes Percent Auto 7.6 % (2.6-8.5); Neutrophils Absolute Auto 3.7 K/mm3 (1.3-6.7); Neutrophils Percent Auto 55.7 % (45.5-73.1); Platelet Count Result 185 k/mm3 (150-375); Red Blood Count 2.96 M/mm3 (4.2-5.4); Red Cell Distribution Width 16.7 % (11.5-14.5); White Blood Count 6.7 K/mm3 (4.5-10.0)
[2021-06-28 08:20] LABS: Anisocytosis 1+ (NORMAL); Ovalocytes 1+ (NORMAL); Platelet Estimate Adequate (Adequate); Poikilocytosis 1+ (NORMAL)
[2021-06-28] MEDS: allopurinoL 100 MG TABLET PO (09:07)
[2021-06-28] MEDS: carvediloL 12.5 MG TABLET PO ×2 (09:07→20:16)
[2021-06-28] MEDS: DULoxetine HCL 30 MG CAPSULE.DR PO (09:07)
[2021-06-28] MEDS: FUROSEMIDE 10 MG TABLET PO (09:07)
--- NOTE | 2021-06-28 11:11 | PCCCNOTE ---
On 06/28/21, the student, [Sima Max], provided care and completed [facility] documentation on this patient. I have reviewed the student's documentation and agree with the findings.
[2021-06-28 11:53] LABS: Glucose Point of Care 190 mg/dl (65-105)
--- NOTE | 2021-06-28 12:07 | PCOTNOTE ---
Attempted to see pt. for occupational therapy. Pt. eating lunch and stated that she wanted to finish, before doing therapy.
--- NOTE | 2021-06-28 16:33 | WPDGICN ---
Assessment and Plan Assessment and plan (1) Melena: Code(s): K92.1 - Melena Status: Acute Assessment and Plan: apparently had dark stools few weeks ago use protonix and will do egd to assess if ulcers, etc also needs colonoscopy to check if malignancy. Concerning mass in ovary, will need gynecological evaluation (2) Acute blood loss anemia: Code(s): D62 - Acute posthemorrhagic anemia Status: Acute Assessment and Plan: egd and colonoscopy to assess if gi blood loss wonder if large ovarian mass could be also part of anemia (3) Ovarian mass: Code(s): N83.8 - Other noninflammatory disorders of ovary, fallopian tube and broad ligament Status: Acute (4) Diabetes mellitus: Code(s): E11.9 - Type 2 diabetes mellitus without complications Status: Acute Assessment and Plan: on medical management (5) HTN (hypertension): Code(s): I10 - Essential (primary) hypertension Status: Acute GI Consult Note Consult date/time: 06/28/21 16:33 Reason for consult: melena, acute blood loss anemia HPI: Sruthi Prather is a 81 year old female with history of DM, HTN who had a fall around Xmas time with a bruised in left hip, soon after she noted almost 2 weeks of dark stools but resolved however recently she noted more dyspnea on exertion and generalized weakness. Finally went to see her PCP who obtained blood work and found to have anemia with hemoglobin of 7.6 (baseline hb normal 14), denies using blood thinners. She says that had a colonoscopy but in the 70's. She had Abdomen pelvis CT scan, reviewed and showed complex largely multi-septated cystic use mass of left pelvic area likely of ovarian origin. Denies abdominal pain. Review of Systems Constitutional: Constitutional: Reports fatigue and Reports lethargy Eyes: Eyes: Denies blurry vision ENT: Reports Normal hearing present Cardiovascular: Cardiovascular: Denies chest pain Respiratory: Respiratory: Denies cough Gastrointestinal: Gastrointestinal: Denies abdominal pain and Reports melena Genitourinary: Genitourinary: Denies hematuria Musculoskeletal: Musculoskeletal: Reports no additional musculoskeletal complaints Integumentary/Breasts: Skin/Breast: Denies dry skin Neurologic: Denies confusion Psychiatric: Psychiatric: Denies behavioral changes [facility] Past Medical History Medical History (Updated 02/10/22 @ 16:42 by Compa Chin MD) Acute blood loss anemia Anemia Asthma Cervical cancer Diabetes mellitus GI bleed Gout HTN (hypertension) Hypothyroid Melena Ovarian mass Surgical History Surgical History History of bilateral knee replacement History of cholecystectomy History of total abdominal hysterectomy Family History Family History Father ETOH abuse Mother ETOH abuse Sibling ETOH abuse Grandparent Diabetes mellitus Sibling COPD (chronic obstructive pulmonary disease) Social History Social History Smoking status: Never smoker Second hand tobacco smoke exposure: No Alcohol intake: never Substance use: never Substance use type: does not use Gender identity (if verbalized by the patient): Female Spiritual care concerns: No Meds Home Medications and Allergies Home Medications Medication Instructions Recorded Confirmed Type Lantus Solostar U-100 Insulin 25 unit SUBCUT HS 11/25/20 06/28/21 History allopurinol 100 mg PO DAILY 11/25/20 06/27/21 History duloxetine 30 mg PO DAILY 11/25/20 06/27/21 History insulin aspart U-100 10 unit SUBCUT 1200,1700 11/25/20 06/28/21 History levothyroxine 50 mcg PO DAILY 11/25/20 06/27/21 History albuterol sulfate 2 puff INHALATION Q6H PRN #1 device 11/27/20 06/27/21 Rx carvedilol [Coreg] 12.5 mg PO Q12HR #60 tablet 11/27/20 06/27/21 Rx furos
--- NOTE | 2021-06-28 17:28 | PM.IMPN ---
Progress Note: A&P Assessment and Plan (1) Ovarian mass: Code(s): N83.8 - Other noninflammatory disorders of ovary, fallopian tube and broad ligament Status: Acute (2) Acute blood loss anemia: Code(s): D62 - Acute posthemorrhagic anemia Status: Acute (3) Melena: Code(s): K92.1 - Melena Status: Acute (4) Abdominal or pelvic swelling, mass or lump, unspecified site: Code(s): R19.00 - Intra-abdominal and pelvic swelling, mass and lump, unspecified site Status: Acute (5) Hypothyroid: Code(s): E03.9 - Hypothyroidism, unspecified Status: Acute (6) Gout: Code(s): M10.9 - Gout, unspecified Status: Acute (7) Diabetes mellitus: Code(s): E11.9 - Type 2 diabetes mellitus without complications Status: Acute (8) HTN (hypertension): Code(s): I10 - Essential (primary) hypertension Status: Acute (9) Asthma: Code(s): J45.909 - Unspecified asthma, uncomplicated Status: Acute Assessment and Plan: 06/27/21 # generalized weakness history of recurrent falls at least twice 1 of them suggestive of? Syncope. PT OT to see. Echo recently done 11/2020 reviewed continue on telemetry monitoring. # acute blood loss anemia slowly worsened since history of bleeding with melanomatous stool last month. Stool occult blood test done in outlying hospital reported negative. Her repeat blood count is already up to 8.5. Will continue to monitor. Avoid NSAIDs place on PPI transfuse to keep hemoglobin more than 7. The source of bleeding due to history of melena his GI and hence will consult GI for further evaluation. # newly found ovarian mass no prior CT scan to compare. 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 Will check tumor marker CA 125 # left temporal lobe mass unchanged compared to MRI back from 2019 consistent with meningioma. Associated persistent vasogenic edema in the left temporal lobe surrounding the mass is also unchanged # diabetes mellitus on insulin # hypertension not controlled will resume home medication IV p.r.n. adjust as needed # congestive heart failure not in exacerbation, diastolic congestive heart failure # history of asthma # hypothyroidism resume levothyroxine # gout resume allopurinol # DVT prophylaxis pharmacologic contraindicated will order SCDs # code status discussed with the patient wants to think about it will keep full code 06/28/[address] scan, reviewed and showed complex largely multi-septated cystic use mass of left pelvic area likely of ovarian origin Hemoglobin 8.2 will continue to monitor for 24 hours if hemoglobin remains stable will discontinue telemetry monitoring Cardiovascular and cardiopulmonary status stable without exacerbation of her underlying chronic medical diseases She reports she is feeling better after receiving her unit of blood GI plans to do upper and lower scope Pending Gyne eval for possible ovarian mass Patient may need Gyne Onc Surgical Services unavailable at this hospital Continue current care Subjective Date/time seen: 06/28/21 17:28 Patient doing okay she has no complaints at time my interview. She reports that she had a hysterectomy many years ago for cervical cancer but she retained her ovaries. She also reports black stools approximately 2 weeks ago but that this resolved on its own. She came to the hospital because she was feeling weak Exam Narrative: GEN: NAD, cooperative, obese HEENT: NCAT, MMM, EOMI Neck: no JVD Heart: S1S2 RRR Lungs: CTA B/l Abd: soft, NT, ND, bowel sounds normoactive Ext: moves all, no cyanosis, no clubbing, no edema Neuro: No focal neurological deficits appreciated on gross physical examination, AAOx3 Psych: mood and affect congruent Objective Data Vital Signs Vital Signs: Vital Signs - 24 hr 06/27/21 19:40 06/27/21 20:25 06/28/21 00:00 Temperature 97.0 F L 97.0 F L 97
--- NOTE | 2021-06-28 18:02 | WPDCN ---
Assessment and Plan Assessment and plan (1) Adnexal mass: Code(s): N94.89 - Other specified conditions associated with female genital organs and menstrual cycle Status: Acute Assessment and Plan: During workup, pelvic mass noted on CT scan. A pelvic ultrasound was obtained and showed a complex cystic left ovarian mass measuring 17 x 10 x 13 cm. Some septations were noted, however, other than size, there was no documentation of internal blood flow or solid features. There was also no free fluid in pelvis. With the exception of size, the rest of these findings are more suggestive of a benign mass; however, the possibility of malignancy cannot be ruled out. Therefore, it is unclear at this time whether or not this mass is, in fact, malignant and possibly contributing to acute symptoms or is an incidental benign finding with anemia stemming from a different etiology. A CA-125 has been ordered and is pending. Recommendation also made to obtain a JENAE panel in an effort to stratify patient's risk of ovarian malignancy, which will help determine whether or not to proceed with surgery here at [facility] should surgical management be indicated and required in the immediate or near future or if transfer of care to a facility with Gynecologic Oncology is warranted. Results of these tests are expected within approximately one week. At this time, however, from a gynecologic perspective (and in the absence of an acute need for surgical intervention), patient is relatively stable and further management may be done on an outpatient basis once patient has been medically optimized by Medicine Service and has completed evaluation by GI. Pending GI evaluation, plan would be to await biomarker test results and refer to Gynecologic Oncology for possible additional recommendations, if any. We will gladly arrange this referral through my office. All findings and plan of care were discussed with patient. Thank you for allowing me to participate in the care of this patient. Please do not hesitate to contact me as needed. (2) Melena: Code(s): K92.1 - Melena Status: Acute HPI Data of Consult Date/Time: 06/28/21 18:02 Requesting Physician: Terri Monsivais MD Primary Care Provider: Pam Bonner MD Consult Narrative Narrative: Sruthi Prather is a 81 year old female who was admitted for evaluation of anemia. Patient states that current issues began after she experienced two falls at the end of last year. Reports first incident in March 2021. Patient does not recall this fall and is uncertain of whether or not she completely lost consciousness. She reports experiencing a second fall at the end of April 2021. Approximately two weeks after second fall, patient reports development of coal black stool. Stool consistency was also described as pudding. These abnormal dark stools lasted for approximately one week after which they normalized and became regular again. Patient denies any further changes in bowel movements. Soon after stools normalized, patient developed extreme fatigue which is abnormal for her and she subsequently presented to PCP for further evaluation. During work up, she was noted to be anemic and sent to the ED for further evaluation. Patient has a history of x3. She reports having a total abdominal hysterectomy at age 28 for what she says was cervical cancer. States that ovaries were left in situ. Patient denies any pelvic pain or unusual vaginal bleeding. She reports some urinary incontinence and wears a pad at all times for leakage. Last gynecologic evaluation was in 1959 around time of hysterectomy. Patient states that she has had intermittent pap smears since then which have all been within normal limits. Last pap smear was approximately 30 years ago. Patient denies any family history of any gynecologic cancers, including breast, ovarian, or endometrial. Patient also denies any family history of GI or c
[2021-06-28] MEDS: INSULIN ASPART (*BKC) 100 UNITS/ML 10 UNITS SUB-Q (18:09)
[2021-06-28 18:14] LABS: Glucose Point of Care 180 mg/dl (65-105)
[2021-06-28] MEDS: BISACODYL 5 MG TABLET EC 20 MG PO (18:42)
--- NOTE | 2021-06-28 18:42 | PC.NURSE ---
called pharmacy for bowel prep orders, awaiting delivery.
[2021-06-28] MEDS: PEG (High)/E-LYTE SOLN 4,000 ML BTL 4000 ML PO (18:45)
--- NOTE | 2021-06-28 18:49 | PC.NURSE ---
bowel prep started.
[2021-06-28 22:31] LABS: Glucose Point of Care 99 mg/dl (65-105)
[2021-06-29] VITALS: PULSE 69
[2021-06-29 04:00] VITALS: BP 184/78; PULSE 75; PULSE 90; RESP 20; TEMP 36.3; O2SAT 97
[2021-06-29 06:56] LABS: Hematocrit 28.9 % (37.0-47.0); Hemoglobin 8.9 g/dL (12.0-15.0); Mean Corpuscular HGB Conc 30.8 g/dl (32-36); Mean Corpuscular Hemoglobin 27.6 pg (26-34); Mean Corpuscular Volume 89.8 fl (80-100); Mean Platelet Volume 11.1 fl (7.4-10.4); Platelet Count Result 264 k/mm3 (150-375); Red Blood Count 3.22 M/mm3 (4.2-5.4); Red Cell Distribution Width 16.7 % (11.5-14.5)
[2021-06-29 07:13] LABS: Anion Gap 7 mmol/L (8-16); Blood Urea Nitrogen 11 mg/dL (7-17); Calcium 8.4 mg/dL (8.4-10.2); Carbon Dioxide 30 mmol/L (22-30); Chloride 100 mmol/L (98-107); Estimated CRCL calculation 58 ml/min; Estimated Glomerular Filt Rate > 60; Glucose 135 mg/dL (65-110); Magnesium 2.1 mg/dL (1.6-2.3); Potassium 3.6 mmol/L (3.4-5.0); Sodium 137 mmol/L (137-145)
[2021-06-29 08:00] VITALS: BP 214/61; PULSE 71; PULSE 76; PULSE 83; RESP 16; RESP 20; TEMP 36.1; O2SAT 97; O2SAT 98
--- NOTE | 2021-06-29 08:13 | PC.NURSE ---
endoscopy and colonoscopy schedule at 4pm today.
[2021-06-29] MEDS: DULoxetine HCL 30 MG CAPSULE.DR PO (08:15)
[2021-06-29 08:16] VITALS: PULSE 76
[2021-06-29] MEDS: lisinopriL 10 MG TABLET PO (08:16)
[2021-06-29] MEDS: FUROSEMIDE 10 MG TABLET PO (08:16)
[2021-06-29] MEDS: POTASSIUM CHLORIDE 10 MEQ TABLET.ER PO (08:16)
[2021-06-29] MEDS: carvediloL 12.5 MG TABLET PO (08:16)
[2021-06-29] MEDS: allopurinoL 100 MG TABLET PO (08:17)
[2021-06-29 08:32] LABS: Glucose Point of Care 143 mg/dl (65-105)
[2021-06-29] MEDS: cloNIDine HCL 0.1 MG TABLET PO (09:48)
[2021-06-29 09:54] VITALS: BP 156/78
--- NOTE | 2021-06-29 09:55 | PC.NURSE ---
MD Hoyt reported pt wants to leave Dayan hackett charge nurse called cab for pt, awaiting cab for [employer].
--- NOTE | 2021-06-29 15:39 | PM.DS ---
DS: Admitting Diagnosis Discharge Date 06/29/21 Admitting Diagnosis (1) Anemia: Qualifiers: Anemia type: unspecified type Qualified Code(s): D64.9 - Anemia, unspecified Code(s): D64.9 - Anemia, unspecified Status: Acute (2) GI bleed: Qualifiers: GI bleed type/associated pathology: gastritis Gastritis type: chronic gastritis Qualified Code(s): K29.51 - Unspecified chronic gastritis with bleeding Code(s): K92.2 - Gastrointestinal hemorrhage, unspecified Status: Acute (3) Abdominal or pelvic swelling, mass or lump, unspecified site: Code(s): R19.00 - Intra-abdominal and pelvic swelling, mass and lump, unspecified site Status: Acute Assessment and Plan: document embedded image (4) Hypothyroid: Code(s): E03.9 - Hypothyroidism, unspecified Status: Acute (5) Gout: Code(s): M10.9 - Gout, unspecified Status: Acute (6) CHF (congestive heart failure): Qualifiers: Heart failure chronicity: acute on chronic Heart failure type: systolic Qualified Code(s): I50.23 - Acute on chronic systolic (congestive) heart failure Code(s): I50.9 - Heart failure, unspecified Status: Acute (7) Diabetes mellitus: Code(s): E11.9 - Type 2 diabetes mellitus without complications Status: Acute (8) HTN (hypertension): Code(s): I10 - Essential (primary) hypertension Status: Acute (9) Asthma: Code(s): J45.909 - Unspecified asthma, uncomplicated DS: Discharge Diagnosis Discharge Diagnosis (1) Left against medical advice: Code(s): Z53.29 - Procedure and treatment not carried out because of patient's decision for other reasons Status: Acute (2) Adnexal mass: Code(s): N94.89 - Other specified conditions associated with female genital organs and menstrual cycle Status: Acute (3) Ovarian mass: Code(s): N83.8 - Other noninflammatory disorders of ovary, fallopian tube and broad ligament Status: Acute (4) Acute blood loss anemia: Code(s): D62 - Acute posthemorrhagic anemia Status: Acute (5) Melena: Code(s): K92.1 - Melena Status: Acute (6) Abdominal or pelvic swelling, mass or lump, unspecified site: Code(s): R19.00 - Intra-abdominal and pelvic swelling, mass and lump, unspecified site Status: Acute (7) Asthma: Code(s): J45.909 - Unspecified asthma, uncomplicated Status: Acute (8) HTN (hypertension): Code(s): I10 - Essential (primary) hypertension Status: Acute (9) Diabetes mellitus: Code(s): E11.9 - Type 2 diabetes mellitus without complications Status: Acute (10) CHF (congestive heart failure): Qualifiers: Heart failure chronicity: acute on chronic Heart failure type: systolic Qualified Code(s): I50.23 - Acute on chronic systolic (congestive) heart failure Code(s): I50.9 - Heart failure, unspecified Status: Acute (11) Gout: Code(s): M10.9 - Gout, unspecified Status: Acute (12) Hypothyroid: Code(s): E03.9 - Hypothyroidism, unspecified Status: Acute DS: Summary Hospital Course Reason for hospitalization: Melena, anemia Hospital Course: # generalized weakness history of recurrent falls at least twice 1 of them suggestive of? Syncope. PT OT to see. Echo recently done 11/2020 reviewed continue on telemetry monitoring. # acute blood loss anemia slowly worsened since history of bleeding with melanomatous stool last month. Stool occult blood test done in outlying hospital reported negative. Her repeat blood count is already up to 8.5. Will continue to monitor. Avoid NSAIDs place on PPI transfuse to keep hemoglobin more than 7. The source of bleeding due to history of melena his GI and hence will consult GI for further evaluation. # newly found ovarian mass no prior CT scan to compare. Complex largely multi-septated he cystic use mass of
[2021-07-01 01:29] LABS: CA-125 15 U/mL (<35)
== END 2021-06-29 10:10 | disposition left against medical advice (07) | DRG 760 ==
PROVIDERS: Internal Medicine; Admitting Provider Family Medicine; PCP Internal Medicine; Visit Provider Hospitalist
DX: N83.8 Other noninflammatory disorders of ovary, fallopian tube and broad ligament (principal); K29.51 Unspecified chronic gastritis with bleeding; D62 Acute posthemorrhagic anemia; I50.32 Chronic diastolic (congestive) heart failure; Z68.41 Body mass index [BMI] 40.0-44.9, adult; R55 Syncope and collapse; N94.89 Other specified conditions associated with female genital organs and menstrual cycle; I11.0 Hypertensive heart disease with heart failure; E11.9 Type 2 diabetes mellitus without complications; Z53.29 Procedure and treatment not carried out because of patient's decision for other reasons; E03.9 Hypothyroidism, unspecified; J45.909 Unspecified asthma, uncomplicated; M10.9 Gout, unspecified; E66.9 Obesity, unspecified; Z96.653 Presence of artificial knee joint, bilateral; R29.6 Repeated falls; Z85.41 Personal history of malignant neoplasm of cervix uteri; Z90.49 Acquired absence of other specified parts of digestive tract; Z90.710 Acquired absence of both cervix and uterus; Z79.4 Long term (current) use of insulin
CPT/HCPCS: 36415; 76856; 80048; 80053; 82607; 82728; 82746; 82948; 83036; 83540; 83550; 83615; 83735; 85025; 85027; 85046; 85055; 85610; 85730; 86304; 97161; 97165; A9270; J0360; J1815

== ENCOUNTER 2021-07-26 01:05 | Day surgery (SDC) | payer MEDICARE, BC, SELFPAY ==
[2021-07-23 09:20] VITALS: BMI 40.3
--- NOTE | 2021-07-25 13:51 | WPDANESEPPF ---
Anes - Initial Pre Proc Eval Procedure: Operation Date: 07/26/21 10:00 Proposed Procedures p Esophagogastroduodenoscopy & Colonoscopy - Grant Cobb DO Date/Time: 07/25/21 13:51 Surgeon: Grant Cobb DO Pre Op Diagnosis: melena Patient Data Age: 81 Gender: F Height: 1.57 m Weight: 100 kg Allergies Allergy/AdvReac Type Severity Reaction Status Date / Time Sulfa (Sulfonamide Allergy Itching Verified 07/26/21 09:44 Antibiotics) Home Medications Medication Instructions Recorded Confirmed Type Lantus Solostar U-100 Insulin 25 unit SUBCUT HS 11/25/20 07/23/21 History allopurinol 100 mg PO DAILY 11/25/20 07/23/21 History duloxetine 60 mg PO DAILY 11/25/20 07/23/21 History insulin aspart U-100 10 unit SUBCUT 1200,1700 11/25/20 07/23/21 History levothyroxine 50 mcg PO DAILY 11/25/20 07/23/21 History albuterol sulfate 2 puff INHALATION Q6H PRN #1 device 11/27/20 07/23/21 Rx carvedilol [Coreg] 12.5 mg PO Q12HR #60 tablet 11/27/20 07/23/21 Rx furosemide 10 mg PO DAILY #30 tablet 11/27/20 07/23/21 Rx lisinopril 10 mg PO DAILY #30 tablet 11/27/20 07/23/21 Rx polyethylene glycol 3350 [Miralax] 17 g PO QAM PRN #14 ea 11/27/20 07/23/21 Rx potassium chloride [K-Tab] 10 meq PO DAILY@0800 #30 tablet 11/27/20 07/23/21 Rx insulin aspart U-100 6 unit SUBCUT 0800 06/28/21 07/23/21 History atorvastatin 20 mg PO DAILY 07/23/21 07/23/21 History montelukast 10 mg PO DAILY 07/23/21 07/23/21 History pantoprazole 40 mg PO DAILY 07/23/21 07/23/21 History solifenacin 10 mg PO DAILY 07/23/21 07/23/21 History Patient hx anesthesia problems: none Family hx anesthesia problems: none Results Review: All pre-operative results and documents have been reviewed as part of the pre-operative evaluation. [facility] Past Medical History Medical History (Updated 07/25/21 @ 13:52 by Henrry Nevarez DO) Acute blood loss anemia Anemia Asthma Cervical cancer CHF (congestive heart failure) EF 55-60% Diabetes mellitus GI bleed Gout HTN (hypertension) Hypothyroid Melena Ovarian mass Surgical History Surgical History History of bilateral knee replacement History of cholecystectomy History of total abdominal hysterectomy Family History Family History Father ETOH abuse Mother ETOH abuse Sibling ETOH abuse Grandparent Diabetes mellitus Sibling COPD (chronic obstructive pulmonary disease) Social History Social History Smoking status: Never smoker Second hand tobacco smoke exposure: No Alcohol intake: never Substance use: never Substance use type: does not use Living arrangements: with friend(s) Gender identity (if verbalized by the patient): Female Spiritual care concerns: No Anes - Eval Final PreProcedure Day of Procedure 07/25/21 13:51 Patient weight: morbidly obese Heart: regular rate and rhythm Lungs: clear to auscultation and normal air movement Airway: Mallampati scale class II Neurological: alert and oriented Last oral intake: >/= 8 hours ASA classification: III Emergent: no Anesthetic plan: proceed Anesthesia type and monitoring: general GIVS and standard monitoring Results Review: All pre-operative results and documents have been reviewed as part of the pre-operative evaluation. Informed Consent: The patient's anesthetic plan and its attendant risks and benefits were discussed with the patient/family/POA. Questions were solicited and answers provided to the satisfaction of the patient/family/POA.
[2021-07-26 09:47] VITALS: BP 206/81; PULSE 69; RESP 20; TEMP 36.4; O2SAT 98
[2021-07-26] MEDS: LACTATED RINGERS 1,000 ML 150 ML IV CONT (10:16)
[2021-07-26 10:31] LABS: Glucose Point of Care 99 mg/dl (65-105)
--- NOTE | 2021-07-26 10:46 | PM.IMHP ---
H&P: HPI History of Present Illness Date/Time: 07/26/21 10:46 Chief Complaint: anemia Narrative: this is an 81-year-old woman who presents with a history of anemia. She has had some black stools but she is on iron supplements. She denies any hematochezia. She does not recall having a colonoscopy in the past. She was also recently found to have a pelvic cystic mass that is being further evaluated by gynecology. She does not know of any family history of colon cancer. Review of Systems Review of Systems: All systems reviewed & are unremarkable except as noted in HPI and below Constitutional: Constitutional: Denies chills, Denies fever(s), Denies headache(s) and Denies weight loss Eyes: Eyes: Denies change in vision ENT: Denies dizziness, Denies headache(s), Denies neck mass and Denies throat swelling Cardiovascular: Cardiovascular: Denies chest pain, Denies lightheadedness and Denies dyspnea Respiratory: Respiratory: Denies cough, Denies dyspnea and Denies wheezing Gastrointestinal: Gastrointestinal: Denies abdominal pain, Denies change in bowel habits, Denies nausea and Denies vomiting Genitourinary: Genitourinary: Denies hematuria and Denies dysuria Musculoskeletal: Musculoskeletal: Reports as per HPI Integumentary/Breasts: Skin/Breast: Reports as per HPI Neurologic: Denies dizziness and Denies headache(s) Allergic/Immunologic: Allergic/Immunologic: Denies throat swelling and Denies wheezing [facility] Past Medical History Medical History (Updated 07/26/21 @ 10:48 by Grant Cobb DO) Acute blood loss anemia Anemia Asthma Cervical cancer CHF (congestive heart failure) EF 55-60% Diabetes mellitus GI bleed Gout HTN (hypertension) Hypothyroid Melena Ovarian mass Surgical History Surgical History History of bilateral knee replacement History of cholecystectomy History of total abdominal hysterectomy Family History Family History Father ETOH abuse Mother ETOH abuse Sibling ETOH abuse Grandparent Diabetes mellitus Sibling COPD (chronic obstructive pulmonary disease) Social History Social History Smoking status: Never smoker Second hand tobacco smoke exposure: No Alcohol intake: never Substance use: never Substance use type: does not use Living arrangements: with friend(s) Gender identity (if verbalized by the patient): Female Spiritual care concerns: No Meds Home Medications and Allergies Home Medications Medication Instructions Recorded Confirmed Type Lantus Solostar U-100 Insulin 25 unit SUBCUT HS 11/25/20 07/23/21 History allopurinol 100 mg PO DAILY 11/25/20 07/23/21 History duloxetine 60 mg PO DAILY 11/25/20 07/23/21 History insulin aspart U-100 10 unit SUBCUT 1200,1700 11/25/20 07/23/21 History levothyroxine 50 mcg PO DAILY 11/25/20 07/23/21 History albuterol sulfate 2 puff INHALATION Q6H PRN #1 device 11/27/20 07/23/21 Rx carvedilol [Coreg] 12.5 mg PO Q12HR #60 tablet 11/27/20 07/23/21 Rx furosemide 10 mg PO DAILY #30 tablet 11/27/20 07/23/21 Rx lisinopril 10 mg PO DAILY #30 tablet 11/27/20 07/23/21 Rx polyethylene glycol 3350 [Miralax] 17 g PO QAM PRN #14 ea 11/27/20 07/23/21 Rx potassium chloride [K-Tab] 10 meq PO DAILY@0800 #30 tablet 11/27/20 07/23/21 Rx insulin aspart U-100 6 unit SUBCUT 0800 06/28/21 07/23/21 History atorvastatin 20 mg PO DAILY 07/23/21 07/23/21 History montelukast 10 mg PO DAILY 07/23/21 07/23/21 History pantoprazole 40 mg PO DAILY 07/23/21 07/23/21 History solifenacin 10 mg PO DAILY 07/23/21 07/23/21 History Allergies Allergy/AdvReac Type Severity Reaction Status Date / Time Sulfa (Sulfonamide Allergy Itching Verified 07/26/21 09:44 Antibiotics) Vital Signs Vital Signs - 24 hr 07/26/21 09:47 Temperature 36.4 C Pulse Rate 69 Respiratory Rate 20 Bl
[2021-07-26] MEDS: BENZOCAINE (*SP) 60 ML SPRAY CAN (HURRICAINE) 1 SPRAY MUCOUS MEM (10:51)
--- NOTE | 2021-07-26 11:03 | SUR.OPER ---
EGD ENDED AT 1059, COLONOSCOPY BEGAN AT 1105.
[2021-07-26 11:50] VITALS: BP 206/97; PULSE 79; RESP 20; O2SAT 98
[2021-07-26 12:00] VITALS: BP 204/109; PULSE 71; RESP 24; O2SAT 96
[2021-07-26 12:06] LABS: Glucose Point of Care 93 mg/dl (65-105)
[2021-07-26 12:10] VITALS: BP 216/112; PULSE 64; RESP 23; O2SAT 96
--- NOTE | 2021-07-26 12:39 | SUR.PHASEII ---
Pt's BP elevated. Dr. Nevarez made aware. Pt to take BP med when getting home. Pt and caregiver stated understanding.
== END 2021-07-26 12:39 | disposition home or self-care (01) ==
PROVIDERS: PCP Internal Medicine; Visit Provider Surgery
PROC: 0DJ08ZZ Inspection of Upper Intestinal Tract, Via Natural or Artificial Opening Endoscopic (ICD-10-PCS; CPT 43235; principal; 2021-07-26 10:00)
DX: D50.9 Iron deficiency anemia, unspecified (principal); D36.10 Benign neoplasm of peripheral nerves and autonomic nervous system, unspecified; K29.50 Unspecified chronic gastritis without bleeding; I11.0 Hypertensive heart disease with heart failure; I50.9 Heart failure, unspecified; E11.9 Type 2 diabetes mellitus without complications; J45.909 Unspecified asthma, uncomplicated; E03.9 Hypothyroidism, unspecified; Z96.653 Presence of artificial knee joint, bilateral; Z85.41 Personal history of malignant neoplasm of cervix uteri
CPT/HCPCS: 45385; 43239; 82948; 88305; 88342; A9270; J2704; J7120

== ENCOUNTER 2021-09-13 11:12 | Outpatient (CLI) | payer MEDICARE, BC, SELFPAY ==
--- NOTE | 2021-09-13 11:20 | PC.NURSE ---
Pt to OP infusion center for Venofer infusion. Pt A&Ox3. Has no complaints. Instructed on plan of care. Has no questions. Call light in reach.
[2021-09-13 11:32] VITALS: BP 151/60; PULSE 49; RESP 20; TEMP 35.4
[2021-09-13] MEDS: IRON SUCROSE COMPLEX 500 MG in SODIUM CHLORIDE 0.9% IV 250 ML 62.5 MG IVPB (11:42)
--- NOTE | 2021-09-13 13:12 | PC.NURSE ---
PT ate 100% of lunch without complaint. Venofer continues to infuse.
--- NOTE | 2021-09-13 14:30 | PC.NURSE ---
Pt sleeping in chair, no distress noted. Jaymie continues.
--- NOTE | 2021-09-13 15:53 | PC.NURSE ---
Pt discharged to home per wc with MCT.
== END 2021-09-13 11:13 | disposition home or self-care (01) ==
LOC: CHSTREATRM 11:15
PROVIDERS: PCP Internal Medicine; Visit Provider Internal Medicine
DX: D50.9 Iron deficiency anemia, unspecified (principal)
CPT/HCPCS: 96365; 96366; J1756; J7050

== ENCOUNTER 2021-09-27 09:58 | Outpatient (CLI) | payer MEDICARE, BC, SELFPAY ==
[2021-09-27 10:08] VITALS: BMI 41.5
[2021-09-27] MEDS: IRON SUCROSE COMPLEX 500 MG in SODIUM CHLORIDE 0.9% IV 250 ML 62.5 MG IVPB (10:15)
[2021-09-27 10:27] VITALS: BP 124/59; PULSE 68; RESP 16; TEMP 36.6; O2SAT 97
--- NOTE | 2021-09-27 14:40 | PC.NURSE ---
Patient here for #2 of 2 IV Venofer infusions. Education given. No concerns voiced. IV Venofer administered. SEE MAR. Tolerated well. Safe exit of hospital.
== END 2021-09-27 09:59 | disposition home or self-care (01) ==
LOC: CHSTREATRM 10:03
PROVIDERS: PCP Internal Medicine; Visit Provider Internal Medicine
DX: D50.9 Iron deficiency anemia, unspecified (principal)
CPT/HCPCS: 96365; 96366; J1756; J7050

== ENCOUNTER 2021-10-05 09:10 | Outpatient (CLI) | payer MEDICARE, BC, SELFPAY ==
--- NOTE | ~2021-10-05 | NM_ITS ---
EXAMINATION: NM carlos enrique stress w perfusion DATE: 10/05/2021 12:06 INDICATION: Dyspnea TECHNIQUE: Rest images were obtained following intravenous administration of 9.2 mCi Tc99m tetrofosmi n (Myoview). The patient was infused intravenously with Lexiscan (Regadenoson). Then, 29.5 mCi Tc99m tetrofosmin (Myoview) was administered intravenously, and stress images were obtained in supine posit ion. Patient was unable to tolerate prone imaging. Data was reconstructed into short axis and horizon thelma and vertical long axis SPECT images. Gated SPECT images were also obtained. COMPARISON: None. FINDINGS: Small partially mild perfusion defect at the apical lateral segment which appears reversibl e consistent with ischemia and at the mid anterolateral segment which appears fixed consistent with i nfarct. There is normal left ventricular chamber size, wall motion and ejection fraction. Left vent ricular ejection fraction measures >70%. IMPRESSION: 1. Small region of mild reversible ischemia at the apical lateral segment contiguous with small mild nonreversible infarct at the mid anterolateral segment. 2. Left ventricular ejection fraction measuring >70%. Reviewed, dictated and finalized at location A. IMPRESSION: 1. Small region of mild reversible ischemia at the apical lateral segment kaylin guous with small mild nonreversible infarct at the mid anterolateral segment. 2. Left ventricular ejection fraction measuring >70%.
--- NOTE | 2021-10-05 10:07 | EST_ITS ---
Patient Info Name: Sruthi Prather Age: 81 years : 1940 Gender: Female Ht: 61 in Wt: 208 lbs BSA: 2.07 m2 HR: 46 bpm BP: 154 / 65 mmHg Heart Rhythm: Bradycardia Exam Date: 10/05/2021 10:54 AM Exam Location: [facility] Stress Patient Status: Outpatient Admit Date: 10/05/2021 Staff Ordering Physician: Robb Copeland DO Attending Provider: Robb Copeland DO Exercise Technologist: Pauline Sheikh CT Exercise Physician: Robb Copeland DO Exam Type: CA stress carlos enrique w NM Study Info Indications R06.00 - Dyspnea, unspecified A regadenoson stress test was performed. Summary 1. 1. Negative lexiscan stress test for ischemic ST changes by ECG criteria. 2. 2. Baseline hypertension. 3. 3. Nuclear scan to follow and will be reported separately. Please correlate with it. 4. 4. Patient informed of the above results. Protocol: Lexiscan Stress ECG Details Stage: REST Duration (min): 2 min : 11 sec HR (bpm): 45 SBP (mmHg): 154 DBP (mmHg): 65 Stage: REST Duration (min): 14 min : 7 sec HR (bpm): 47 SBP (mmHg): 154 DBP (mmHg): 65 Stage: STAGE 1 Duration (min): 1 min : 0 sec HR (bpm): 58 SBP (mmHg): 162 DBP (mmHg): 60 Stage: RECOVERY Duration (min): 1 min : 0 sec HR (bpm): 62 SBP (mmHg): 162 DBP (mmHg): 60 Stage: RECOVERY Duration (min): 2 min : 0 sec HR (bpm): 57 SBP (mmHg): 162 DBP (mmHg): 60 Stage: RECOVERY Duration (min): 3 min : 0 sec HR (bpm): 56 SBP (mmHg): 157 DBP (mmHg): 63 Stage: RECOVERY Duration (min): 3 min : 4 sec HR (bpm): 55 SBP (mmHg): 157 DBP (mmHg): 63 Rest HR: 47 bpm Peak HR: 67 bpm Rest Sys BP: 154 mmHg Peak Sys BP: 162 mmHg Max Pred HR: 137 bpm % Max Pred HR: 49 % Target HR: 116 bpm Max RPP: 10,854 bpm*mmHg Termination Reason: Completed protocol Cardiac Symptoms: Shortness of breath Total Time: 1 min : 0 sec Rest Sharif BP: 65 mmHg Peak Sharif BP: 60 mmHg Total Dose: 0.4 mg Resting ECG Sinus bradycardia with first degree AV block. Stress ECG No ST changes. Arrhythmias None. Report Signatures
== END 2021-10-05 09:11 | disposition home or self-care (01) ==
LOC: ANHCARD 09:15
PROVIDERS: PCP Internal Medicine; Visit Provider Internal Medicine Cardiovascular Disease
DX: R06.00 Dyspnea, unspecified (principal)
CPT/HCPCS: 78452; 93017; A9502; J2785

== ENCOUNTER 2022-02-04 17:08 | Emergency (ER) | payer MEDICARE, BC, SELFPAY ==
--- NOTE | ~2022-02-04 | XR_ITS ---
EXAMINATION: XR chest 1V portable Exam Date/Time: 02/04/2022 17:35 CDT HISTORY: SOB Comparison: 06/27/2021. RESULT: Lines, tubes, and devices: None. Lungs and pleura: Senescent change, otherwise clear. Cardiomediastinal silhouette: Stable. Other: No acute osseous or upper abdominal finding. IMPRESSION: No acute cardiopulmonary process. Reviewed, dictated and finalized at location K.
[2022-02-04 17:13] VITALS: BP 195/57; PULSE 58; RESP 14; TEMP 36.8; O2SAT 97
[2022-02-04 17:15] VITALS: PULSE 62; O2SAT 98
--- NOTE | 2022-02-04 17:21 | ECG_ITS ---
Measurements Intervals [place] Rate: 58 P: 108 OH: 181 QRS: 208 QRSD: 89 T: 108 QT: 438 QTc: 432 Interpretive Statements SINUS BRADYCARDIA VENTRICULAR PREMATURE COMPLEX ARM LEADS REVERSED POOR R WAVE PROGRESSION, CONSIDER ANTERIOR INFARCT BASELINE ARTIFACT- I, II, III, AVR, AVL, AVF ABNORMAL ECG COMPARED TO ECG 06/27/2021 13:36:03 NO SIGNIFICANT CHANGES Electronically Signed On 02-04-2022 20:49:45 CDT by Robb Copeland D.O.
[2022-02-04 18:00] VITALS: BP 175/75; PULSE 62; RESP 18; O2SAT 98
[2022-02-04 18:01] LABS: Base Excess ABG 4.2 mmol/L (0-2); HCO3 ABG 28.3 mmol/L (23-29); Oxygen Content ABG 18.9 %vol (16.0-22.0); Oxygen Saturation ABG 95.5 % (95-97); Oxyhemoglobin 94.9 % (94-100); PCO2 ABG 40.6 mmHg (35-45); PO2 ABG 80.9 mmHg (75-85); Total Hemoglobin 14.1 g/dL (12.0-18.0); pH ABG 7.46 (7.35-7.45)
[2022-02-04 18:06] LABS: Basophils Absolute Auto 0.03 K/mm3 (0.00-0.10); Basophils Percent Auto 0.4 % (0.0-1.0); Eosinophils Absolute Auto 0.14 K/mm3 (0.02-0.50); Hematocrit 43.5 % (35.0-42.0); Hemoglobin 13.9 g/dL (11.7-13.8); Immature Granulocyte Absolute 0.02 K/mm3 (0.00-0.00); Immature Granulocyte Percent A 0.3 % (0.0-0.0); Lymphocytes Absolute Auto 2.31 K/mm3 (1.10-4.50); Lymphocytes Percent Auto 32.5 % (18.0-42.0); Mean Corpuscular Hemoglobin 27.7 pg (27.0-31.0); Mean Corpuscular Volume 86.8 fL (78.0-102.0); Neutrophils Absolute Auto 4.1 K/mm3 (1.7-7.2); Neutrophils Percent Auto 57.8 % (50.0-70.0); Platelet Count Result 229 K/mm3 (150-420); Red Blood Count 5.01 M/mm3 (4.20-5.40); Red Cell Distribution Width 13.8 % (11.6-14.4); White Blood Count 7.1 K/mm3 (4.8-10.8)
[2022-02-04 18:07] LABS: Device ROOM AIR; Modified Allen's Test Pass; Site Drawn RIGHT RADIAL
[2022-02-04 18:22] LABS: Amphetamine Screen Urine Negative (Negative); Barbiturate Screen Urine Negative (Negative); Benzodiazepines Screen Urine Negative (Negative); Cannabinoid Screen Urine Negative (Negative); Cocaine Screen Urine Negative (Negative); Methadone Screen Urine Negative (Negative); Opiate Screen Urine Negative (Negative); Phencyclidine Screen Urine Negative (Negative)
[2022-02-04 18:24] LABS: Add Urine Microscopic? YES; Appearance Urine Clear (Clear); Bilirubin Urine Negative (Negative); Blood Urine Negative (Negative); Color Urine Light Yellow (Yellow); Glucose Urine UA Negative (Negative); Ketones Urine Negative (Negative); Leukocyte Esterase Ur Trace LEU/UL (Negative); Nitrate Urine Negative (Negative); Protein Urine Negative (Negative); Urobilinogen Urine 0.2 mg/dL (0.2-1.0); pH Urine 5.5 (5.0-8.0)
--- NOTE | 2022-02-04 18:27 | ED.SOB ---
HPI - SOB/Dyspnea General Chief Complaint: Shortness of Breath/Dyspnea Stated Complaint: ambulance Time Seen by Provider: 02/04/22 17:12 Source: patient and RN notes reviewed Mode of arrival: ambulatory Limitations: no limitations History of Present Illness MD elicited complaint: shortness of breath, cough and asthma attack Pertinent past history: asthma Onset (ago): day(s) (1) Context: recent illness Timing: progressively worsening Severity: moderate Exacerbating factors: exertion and coughing Relieving factors: oxygen Known history of: asthma Associated symptoms: cough and wheezing Related Data Home Medications Medication Instructions Recorded Confirmed allopurinol 100 mg tablet 100 mg PO DAILY 11/25/20 02/04/22 duloxetine 30 mg capsule,delayed 60 mg PO DAILY 11/25/20 02/04/22 release insulin aspart U-100 100 unit/mL 10 unit subcut 1200,1700 11/25/20 02/04/22 (3 mL) subcutaneous pen levothyroxine 50 mcg tablet 50 mcg PO DAILY 11/25/20 02/04/22 insulin aspart U-100 100 unit/mL 6 unit subcut 0800 06/28/21 02/04/22 (3 mL) subcutaneous pen atorvastatin 20 mg tablet 20 mg PO DAILY 07/23/21 02/04/22 montelukast 10 mg tablet 10 mg PO DAILY 07/23/21 02/04/22 pantoprazole 40 mg tablet,delayed 40 mg PO DAILY 07/23/21 02/04/22 release solifenacin 10 mg tablet 10 mg PO DAILY 07/23/21 02/04/22 lisinopril 20 mg tablet 40 mg PO DAILY 02/04/22 02/04/22 Allergies Allergy/AdvReac Type Severity Reaction Status Date / Time Sulfa (Sulfonamide Allergy Itching Verified 09/17/21 15:50 Antibiotics) Review of Systems Review of Systems: All systems reviewed & are unremarkable except as noted in HPI and below Constitutional: Constitutional: Reports no additional constitutional complaints Eyes: Eyes: Reports no additional eye complaints ENT: Reports system reviewed and no additional complaints, except as documented Cardiovascular: Cardiovascular: Reports no additional cardiovascular complaints Respiratory: Respiratory: Reports no additional respiratory complaints and Reports dyspnea Gastrointestinal: Gastrointestinal: Reports no additional gastrointestinal complaints Genitourinary: Genitourinary: Reports no additional female genitourinary complaints Musculoskeletal: Musculoskeletal: Reports no additional musculoskeletal complaints Integumentary/Breasts: Skin/Breast: Reports system reviewed and no additional complaints, except as docu Neurologic: Reports system reviewed and no additional complaints, except as documented Psychiatric: Psychiatric: Reports no additional psychiatric complaints Endocrine: Endocrine: Reports no additional endocrine complaints Hematologic/Lymphatic: Hematologic/Lymphatic: Reports no additional hematologic/lymphatic complaints Allergic/Immunologic: Allergic/Immunologic: Reports no additional allergic/immunologic complaints PMFSH Past Medical History Medical History Acute blood loss anemia Anemia Asthma Cervical cancer CHF (congestive heart failure) EF 55-60% Diabetes mellitus GI bleed Gout HTN (hypertension) Hypothyroid Melena Ovarian mass Surgical History Surgical History History of bilateral knee replacement History of cholecystectomy History of total abdominal hysterectomy Family History Family History Father ETOH abuse Mother ETOH abuse Sibling ETOH abuse Grandparent Diabetes mellitus Sibling COPD (chronic obstructive pulmonary disease) Social History Social History Smoking status: Never smoker Second hand tobacco smoke exposure: No Alcohol intake: never Substance use: never Substance use type: does not use Gender identity (if verbalized by the patient): Female Spiritual care concerns: No Exam Const: Genera
[2022-02-04 18:28] LABS: Alanine Aminotransferase 13 U/L (14-59); Albumin Level 3.6 g/dL (3.4-5.0); Alkaline Phosphatase 89 U/L (46-116); Anion Gap 5 mmol/L (8-16); Aspartate Amino Transferase 11 U/L (15-37); Bilirubin,Total 0.4 mg/dL (0.00-1.00); Blood Urea Nitrogen 14 mg/dL (7-18); Calcium 9.2 mg/dL (8.5-10.1); Carbon Dioxide 32 mmol/L (21-32); Chloride 97 mmol/L (98-108); Estimated CRCL calculation 40 ml/min; Estimated Glomerular Filt Rate 56; Glucose 202 mg/dL (70-99); Magnesium 1.9 mg/dL (1.8-2.4); NT Pro B Type Natriuretic Pept 655 pg/mL (0-450); Osmolality Calculated 284 mOsm/kg (285-295); Potassium 3.1 mmol/L (3.5-5.1); Sodium 134 mmol/L (136-145); Total Protein 7.6 g/dL (6.4-8.2); Troponin I 17.3 ng/L (0.00-60.4)
[2022-02-04 18:35] LABS: Bacteria Urine None seen /hpf; RBC Urine 0-2 /hpf (0-2); Squamous Epithelial Cell Urine Few /hpf (Few)
[2022-02-04 18:42] VITALS: BP 170/74; PULSE 75; RESP 18; TEMP 36.6; O2SAT 98
[2022-02-04] MEDS: POTASSIUM CHLORIDE 20 MEQ TABLET 40 MEQ PO (18:50)
--- NOTE | 2022-02-26 13:25 | PC.NURSE ---
FINAL BLOOD CULTURE RESULTS X2 NO GROWTH AFTER 5 DAYS
== END 2022-02-04 19:17 | disposition home or self-care (01) ==
PROVIDERS: Emergency Provider Emergency Medicine; PCP Internal Medicine
DX: B34.9 Viral infection, unspecified (principal); N39.0 Urinary tract infection, site not specified; E87.6 Hypokalemia; J45.909 Unspecified asthma, uncomplicated; I50.9 Heart failure, unspecified; I10 Essential (primary) hypertension; E03.9 Hypothyroidism, unspecified; Z79.899 Other long term (current) drug therapy
CPT/HCPCS: 36415; 36600; 71045; 80053; 80307; 81001; 82805; 83735; 83880; 84484; 85025; 87040; 93005; 99284; A9270

== ENCOUNTER 2022-05-17 14:03 | Emergency (ER) | payer MEDICARE, BC, SELFPAY ==
--- NOTE | ~2022-05-17 | CT_ITS ---
EXAMINATION: CT brain wo con DATE: 05/17/2022 14:44 INDICATION: Head injury. TECHNIQUE: Computed tomography (CT) of the head was performed without intravenous contrast. The mA wa s adjusted according to patient size. Iterative reconstruction technique was employed. The dose-lengt h product was 605.33 mGy-cm. COMPARISON: Head CT 06/27/2021, brain MRI 05/17/2020, 05/10/2020 FINDINGS: There is a 17 mm extra-axial mass inferior to left temporal lobe that is isodense to moore m atter. There is low-attenuation vasogenic edema in the adjacent white matter. There are scattered are as of low attenuation in the cerebral white matter, which is within normal limits for the patient's a ge. There are prominent perivascular spaces in the bilateral basal ganglia. There is no acute ischem ic infarct or intracranial hemorrhage. The ventricles are normal in size. There is mild mucosal thick ening in the paranasal sinuses. The mastoid air cells are normal. The orbits are normal. There is rig ht posterior scalp soft tissue swelling. IMPRESSION: 1. Stable 17 mm extra-axial mass inferior to left temporal lobe, consistent with a meningioma. Reviewed, dictated and finalized at location A. EZE ARTIST IMPRESSION: 1. Stable 17 mm extra-axial mass inferior to left temporal lobe, consistent wit h a meningioma.
--- NOTE | ~2022-05-17 | CT_ITS ---
EXAMINATION: CT cervical spine wo con DATE: 05/17/2022 14:44 INDICATION: Head injury. TECHNIQUE: Computed tomography (CT) of the cervical spine was performed without intravenous contrast. Automated exposure control and iterative reconstruction technique were employed. The dose-length pro duct was 411.19 mGy-cm. COMPARISON: None FINDINGS: Bone alignment is normal. Vertebral body heights are normal. There is mildly decreased disc height at C3-C4, moderately decreased disc height at C4-C5, severely decreased disc height at C5-C6 and C6-C7, and mildly decreased disc height at C7-T1 with endplate remodeling. The following disc lev els are specifically discussed: C2-C3: There is mild bilateral uncovertebral joint osteoarthritis. There is severe right and moderate left facet joint osteoarthritis. There is no neural foraminal stenosis. There is no central canal st enosis. C3-C4: There is severe right and mild left uncovertebral joint osteoarthritis. There is severe bilate ral facet joint osteoarthritis. There is mild bilateral neural foraminal stenosis. There is no centra l canal stenosis. C4-C5: There is severe right and mild left uncovertebral joint osteoarthritis. There is severe bilate ral facet joint osteoarthritis. There is moderate right and mild left neural foraminal stenosis. Ther e is mild central canal stenosis. C5-C6: There is severe bilateral uncovertebral joint osteoarthritis. There is severe bilateral facet joint osteoarthritis. There is mild bilateral neural foraminal stenosis. There is mild central canal stenosis. C6-C7: There is severe bilateral uncovertebral joint osteoarthritis. There is severe bilateral facet joint osteoarthritis. There is mild left neural foraminal stenosis. There is mild central canal steno sis. C7-T1: There is mild right uncovertebral joint osteoarthritis. There is severe bilateral facet joint osteoarthritis. There is mild bilateral neural foraminal stenosis. There is no central canal stenosis . IMPRESSION: 1. No fracture. 2. Severe cervical spondylosis. Reviewed, dictated and finalized at location A. STRESS ENGINEER
[2022-05-17 14:09] VITALS: BP 193/79; PULSE 99; RESP 16; TEMP 36.1; O2SAT 99
--- NOTE | 2022-05-17 14:16 | ED.HEATRA ---
HPI - Head Injury General Chief complaint: Head Injury Stated complaint: fell hit head Time Seen by Provider: 05/17/22 14:16 Source: patient Mode of arrival: ambulatory Limitations: no limitations History of Present Illness HPI Narrative: 82-year-old female with a history of hypertension, diabetes mellitus, dyslipidemia, asthma, CHF, diastolic dysfunction was brought in by EMS -- after she hit her head while attempting to straighten up from a stooped position. No fall. She sustained 4 cm laceration over the occiput. No loss of consciousness. No neck or back pain. Patient is not on any anticoagulation. blood sugar is noted to be 195 MD Complaint: head injury Onset (ago): minute(s) ( [address]) [address]: home Loss of Consciousness: no Location of injury: occipital Severity: moderate Quality: dull Radiation: none Other Injuries: none Associated symptoms: denies other symptoms Related Data Home Medications Medication Instructions Recorded Confirmed allopurinol 100 mg tablet 100 mg PO DAILY 11/25/20 02/04/22 duloxetine 30 mg capsule,delayed 60 mg PO DAILY 11/25/20 02/04/22 release insulin aspart U-100 100 unit/mL 10 unit subcut 1200,1700 11/25/20 02/04/22 (3 mL) subcutaneous pen levothyroxine 50 mcg tablet 50 mcg PO DAILY 11/25/20 02/04/22 insulin aspart U-100 100 unit/mL 6 unit subcut 0800 06/28/21 02/04/22 (3 mL) subcutaneous pen atorvastatin 20 mg tablet 20 mg PO DAILY 07/23/21 02/04/22 montelukast 10 mg tablet 10 mg PO DAILY 07/23/21 02/04/22 pantoprazole 40 mg tablet,delayed 40 mg PO DAILY 07/23/21 02/04/22 release solifenacin 10 mg tablet 10 mg PO DAILY 07/23/21 02/04/22 lisinopril 20 mg tablet 40 mg PO DAILY 02/04/22 02/04/22 Allergies Allergy/AdvReac Type Severity Reaction Status Date / Time Sulfa (Sulfonamide Allergy Itching Verified 05/17/22 15:31 Antibiotics) Review of Systems Review of Systems: All systems reviewed & are unremarkable except as noted in HPI and below Constitutional: Constitutional: Reports as per HPI and Reports no additional constitutional complaints Eyes: Eyes: Reports as per HPI and Reports no additional eye complaints ENT: Reports system reviewed and no additional complaints, except as documented and Reports as per HPI Cardiovascular: Cardiovascular: Reports as per HPI and Reports no additional cardiovascular complaints Respiratory: Respiratory: Reports as per HPI and Reports no additional respiratory complaints Gastrointestinal: Gastrointestinal: Reports as per HPI and Reports no additional gastrointestinal complaints Genitourinary: Genitourinary: Reports no additional female genitourinary complaints and Reports as per HPI Musculoskeletal: Musculoskeletal: Reports no additional musculoskeletal complaints and Reports as per HPI Comments: no neck or back pain Integumentary/Breasts: Skin/Breast: Reports system reviewed and no additional complaints, except as docu Comments: 4 cm laceration on the occiput Neurologic: Reports system reviewed and no additional complaints, except as documented and Reports as per HPI Psychiatric: Psychiatric: Reports no additional psychiatric complaints and Reports as per HPI Endocrine: Endocrine: Reports no additional endocrine complaints and Reports as per HPI Hematologic/Lymphatic: Hematologic/Lymphatic: Reports no additional hematologic/lymphatic complaints and Reports as per HPI Allergic/Immunologic: Allergic/Immunologic: Reports no additional allergic/immunologic complaints and Reports as per HPI [facility] Past Medical History Medical History Acute blood loss anemia Anemia Asthma Cervical cancer CHF (congestive heart failure) EF 55-60% Diabetes mellitus GI bleed Gout HTN (hypertension) Hypothyroid Melena Ovarian mass Surgical History Surgical History History of bilateral knee replacement Histo
[2022-05-17 14:28] LABS: Glucose Point of Care 195 mg/dl (65-105)
--- NOTE | 2022-05-17 14:30 | PC.NURSE ---
erp aware of patient's blood pressure being elevated.
[2022-05-17] MEDS: LIDOCAINE HCL 1% LOCAL INJ 10 ML VIAL 7 ML INFILTRATE (15:06)
[2022-05-17 15:52] VITALS: BP 206/83; PULSE 70; RESP 16; TEMP 36.4; O2SAT 99
== END 2022-05-17 15:57 | disposition home or self-care (01) ==
PROVIDERS: Emergency Provider Internal Medicine Critical Care Medicine; PCP Internal Medicine
DX: S09.90XA Unspecified injury of head, initial encounter (principal); S01.01XA Laceration without foreign body of scalp, initial encounter; D32.0 Benign neoplasm of cerebral meninges; W01.0XXA Fall on same level from slipping, tripping and stumbling without subsequent striking against object, initial encounter; E11.9 Type 2 diabetes mellitus without complications; E78.5 Hyperlipidemia, unspecified; I11.0 Hypertensive heart disease with heart failure; I50.30 Unspecified diastolic (congestive) heart failure; J45.909 Unspecified asthma, uncomplicated; E03.9 Hypothyroidism, unspecified; M10.9 Gout, unspecified; Z96.653 Presence of artificial knee joint, bilateral; Z79.4 Long term (current) use of insulin; Z79.51 Long term (current) use of inhaled steroids
CPT/HCPCS: 12002; 70450; 72125; 82948; 99284

== ENCOUNTER 2022-06-18 09:35 | Outpatient (CLI) | payer MEDICARE, BC, SELFPAY ==
--- NOTE | ~2022-06-18 | CT_ITS ---
EXAMINATION: CT brain wo con DATE: 06/18/2022 09:52 INDICATION: Dizziness. Disorientation. Memory loss. TECHNIQUE: Computed tomography (CT) of the head was performed without intravenous contrast. The mA wa s adjusted according to patient size. Iterative reconstruction technique was employed. The dose-lengt h product was 605.33 mGy-cm. COMPARISON: Head CT 05/17/2022, brain MRI 05/17/2020 FINDINGS: There are prominent perivascular spaces in the bilateral basal ganglia. There is no intracr anial hemorrhage or acute infarction. There is a 1.5 cm extra-axial mass inferior to left temporal lo be that is isodense to moore matter with adjacent chronic vasogenic edema. The ventricles are normal i n size. The orbits are normal. There is mild mucosal thickening in the paranasal sinuses. The mastoid air cells are normal. IMPRESSION: 1. Stable 1.5 cm extra-axial mass inferior to left temporal lobe, consistent with a meningioma. Reviewed, dictated and finalized at location A. SORTING SUPERVISOR IMPRESSION: 1. Stable 1.5 cm extra-axial mass inferior to left temporal lobe, consistent wi th a meningioma.
== END 2022-06-18 09:36 | disposition home or self-care (01) ==
LOC: CHSIMG 09:36
PROVIDERS: PCP Internal Medicine; Visit Provider Internal Medicine
DX: R42 Dizziness and giddiness (principal); G93.9 Disorder of brain, unspecified
CPT/HCPCS: 70450

== ENCOUNTER 2022-10-08 12:27 | Outpatient (CLI) | payer MEDICARE, BC, SELFPAY ==
--- NOTE | ~2022-10-08 | US_ITS ---
EXAMINATION: US carotid duplex BI DATE: 10/08/2022 13:26 INDICATION: Dizziness TECHNIQUE: Grayscale, color Doppler, and pulsed Doppler images of the cervical carotid arteries were obtained. The degree of vessel stenosis is placed in one of the following categories: normal, <50%, 5 0-69%, >=70% but less than near-occlusion, near-occlusion, or total occlusion. Note that percent sten osis relative to normal distal artery lumen diameter is indirectly measured from velocity measurement s as described by Ramon, et al. Radiology 2003; 229:340-346. Notes: Normal: Peak systolic velocity <125 centimeters/sec and no plaque <50%. Peak systolic velocity <125 ( EDV <40; ICA/CCA PSV ratio <2.0; used these factors only a tandem lesions or low cardiac output or co ntralateral disease) 50-69 %: PSV 125-230 (EDV 40-100; ratio 2-4) >= 70% but less than near occlusion: PSV greater than 230 (EDV > 100; ratio> 4.0) Near Occlusion: PSV that is variable; markedly narrowed lumen Occlusion: Absent flow on color/spectral Doppler and no lumen on moore scale. COMPARISON: None. FINDINGS: RIGHT: The right common carotid artery (CCA) peak systolic velocity (PSV) is 67 cm/s. The right internal car otid artery (ICA) PSV is 78 cm/s. The right ICA end-diastolic velocity (EDV) is 8 cm/s. The right ICA /CCA PSV ratio is 1.2. The external carotid artery (ECA) PSV is 64 cm/s. There is antegrade flow in t he right vertebral artery. LEFT: The left CCA PSV is 75 cm/s. The left ICA PSV is 88 cm/s. The left ICA EDV is 23 cm/s. The left ICA/C CA PSV ratio is 1.2. The ECA PSV is 81 cm/s. There is antegrade flow in the left vertebral artery. IMPRESSION: 1. Less than 50% stenosis in the right internal carotid artery by sonographic criteria. 2. Less than 50% stenosis in the left internal carotid artery by sonographic criteria. Reviewed, dictated and finalized at location L. IMPRESSION: 1. Less than 50% stenosis in the right internal carotid artery by sonographic vangie medrano. 2. Less than 50% stenosis in the left internal carotid artery by sonographic azalia reese.
--- NOTE | ~2022-10-08 | US_ITS ---
US arterial ankle brachial ind INDICATION: Carotid stenosis TECHNIQUE: Segmental pressures and plethysmographic and Doppler waveforms of the brachial and lower e xtremity arteries were obtained. COMPARISON: None. FINDINGS: Right and left brachial artery pressures of 193 mm Hg and 185 mm Hg, respectively, are concordant (no rmal difference <= 30 mmHg). The right ankle-brachial index (SIXTO) is 1.14 (normal >= 0.9-1.0). The right great toe-brachial index (TBI) is 0.81 (normal >= 0.60). The left SIXTO is 1.13. The left TBI is 0.81. IMPRESSION: 1. Normal bilateral ankle and toe brachial indices. Reviewed, dictated and finalized at location L.
== END 2022-10-08 12:28 | disposition home or self-care (01) ==
LOC: CHSIMG 12:29
PROVIDERS: PCP Internal Medicine; Visit Provider Internal Medicine
DX: I65.23 Occlusion and stenosis of bilateral carotid arteries (principal); I73.9 Peripheral vascular disease, unspecified
CPT/HCPCS: 93880; 93922

== ENCOUNTER 2023-02-28 14:51 | Inpatient (IN) | payer MEDICARE, BC, SELFPAY ==
[2023-02-28] VITALS (9 sets, daily range): BP systolic 150–201; BP diastolic 60–113; PULSE 62–78; RESP 16–20; TEMP 35.9–36.7; O2SAT 97–99; BMI 34.4
--- NOTE | ~2023-02-28 | XR_ITS ---
EXAMINATION: XR chest 2V DATE: 03/01/2023 09:04 INDICATION: Fever of unknown origin. TECHNIQUE: Frontal and lateral views of the chest were obtained on 3 radiographs. COMPARISON: Chest single view 02/04/2022, chest CT 11/25/2020 FINDINGS: There are airspace opacities in basilar left lower lobe. No pleural effusion or pneumothora x. The heart size is normal. IMPRESSION: 1. Airspace opacities in basilar left lower lobe, consistent with atelectasis versus pneumonia. 2. Cardiomegaly. Reviewed, dictated and finalized at location A. IMPRESSION: 1. Airspace opacities in basilar left lower lobe, consistent with atelectasis v ersus pneumonia. 2. Cardiomegaly.
--- NOTE | 2023-02-28 14:58 | ECG_ITS ---
Measurements Intervals Mertens Rate: 65 P: 238 GA: 141 QRS: -18 QRSD: 89 T: 108 QT: 401 QTc: 419 Interpretive Statements SINUS RHYTHM LEFT VENTRICULAR HYPERTROPHY AND ST-T CHANGE Electronically Signed On 03-01-2023 17:12:25 CDT by Stephen Mendez M.D.
--- NOTE | 2023-02-28 15:03 | ED.GENADULT ---
HPI - General Adult General Chief complaint: Unspecified Stated complaint: Unspecified Time Seen by Provider: 02/28/23 14:58 Source: patient Mode of arrival: ambulatory Limitations: altered mental status History of Present Illness HPI narrative: Patient is a 82-year-old female with a significant past medical history that presents today from Dr. Lopez's office across the street. He called here and was concerned her well-being she was very confused and demented and had a big bag medication with her and did not know how to take her medications her where she was. She was apparently recently a week ago let go from the hospital and not sent to a group home and was living on her own. She is unaware of what day it is she does know the month she is not up-to-date she does know where she is and she does not she can from Dr. Lopez's office. She does want to go to group home is willing to do so. She brought all her medications with her and back. She once again does not know what medication she actually takes. We do know she does have a history of diabetes. Onset (ago): hour(s) Associated symptoms: weakness Related Data Home Medications Medication Instructions Recorded Confirmed allopurinol 100 mg tablet 100 mg PO DAILY 11/25/20 05/17/22 duloxetine 30 mg capsule,delayed 60 mg PO DAILY 11/25/20 05/17/22 release insulin aspart U-100 100 unit/mL 10 unit subcut 1200,1700 11/25/20 05/17/22 (3 mL) subcutaneous pen levothyroxine 50 mcg tablet 50 mcg PO DAILY 11/25/20 05/17/22 insulin aspart U-100 100 unit/mL 6 unit subcut 0800 06/28/21 05/17/22 (3 mL) subcutaneous pen atorvastatin 20 mg tablet 20 mg PO DAILY 07/23/21 05/17/22 montelukast 10 mg tablet 10 mg PO DAILY 07/23/21 05/17/22 pantoprazole 40 mg tablet,delayed 40 mg PO DAILY 07/23/21 05/17/22 release solifenacin 10 mg tablet 10 mg PO DAILY 07/23/21 05/17/22 lisinopril 20 mg tablet 40 mg PO DAILY 02/04/22 05/17/22 Allergies Allergy/AdvReac Type Severity Reaction Status Date / Time Sulfa (Sulfonamide Allergy Itching Verified 02/28/23 15:05 Antibiotics) Review of Systems Review of Systems: All systems reviewed & are unremarkable except as noted in HPI and below Constitutional: Constitutional: Reports weakness Comments: confusion Eyes: Eyes: Reports as per HPI and Reports no additional eye complaints ENT: Reports system reviewed and no additional complaints, except as documented Cardiovascular: Cardiovascular: Reports no additional cardiovascular complaints Respiratory: Respiratory: Reports no additional respiratory complaints Gastrointestinal: Gastrointestinal: Reports no additional gastrointestinal complaints Genitourinary: Genitourinary: Reports no additional female genitourinary complaints Musculoskeletal: Musculoskeletal: Reports no additional musculoskeletal complaints Integumentary/Breasts: Skin/Breast: Reports system reviewed and no additional complaints, except as docu Neurologic: Reports confusion Psychiatric: Psychiatric: Reports confusion Endocrine: Endocrine: Reports no additional endocrine complaints PMFSH Past Medical History Medical History Acute blood loss anemia Anemia Asthma Cervical cancer CHF (congestive heart failure) EF 55-60% Diabetes mellitus GI bleed Gout HTN (hypertension) Hypothyroid Melena Ovarian mass Surgical History Surgical History History of bilateral knee replacement History of cholecystectomy History of total abdominal hysterectomy Family History Family History Father ETOH abuse Mother ETOH abuse Sibling ETOH abuse Grandparent Diabetes mellitus Sibling COPD (chronic obstructive pulmonary disease) Social History Social History Smoking status: Never smo
[2023-02-28 15:25] LABS: Basophils Absolute Auto 0.03 K/mm3 (0.00-0.10); Basophils Percent Auto 0.4 % (0.0-1.0); Eosinophils Absolute Auto 0.08 K/mm3 (0.02-0.50); Eosinophils Percent Auto 1.2 % (1.0-6.0); Hematocrit 41.3 % (35.0-42.0); Hemoglobin 13.2 g/dL (11.7-13.8); Immature Granulocyte Absolute 0.05 K/mm3 (0.00-0.00); Immature Granulocyte Percent A 0.7 % (0.0-0.0); Lymphocytes Absolute Auto 1.54 K/mm3 (1.10-4.50); Lymphocytes Percent Auto 22.5 % (18.0-42.0); Mean Corpuscular Hemoglobin 27.6 pg (27.0-31.0); Mean Corpuscular Volume 86.4 fL (78.0-102.0); Monocytes Absolute Auto 0.58 K/mm3 (0.10-0.90); Monocytes Percent Auto 8.5 % (2.0-11.0); Neutrophils Absolute Auto 4.6 K/mm3 (1.7-7.2); Neutrophils Percent Auto 66.7 % (50.0-70.0); Platelet Count Result 197 K/mm3 (150-420); Red Blood Count 4.78 M/mm3 (4.20-5.40); Red Cell Distribution Width 14.5 % (11.6-14.4); White Blood Count 6.9 K/mm3 (4.8-10.8)
[2023-02-28 15:26] LABS: Appearance Urine Clear (Clear); Bilirubin Urine Negative (Negative); Blood Urine 1+ (Negative); Color Urine Light Yellow (Yellow); Glucose Urine UA Negative (Negative); Ketones Urine Negative (Negative); Leukocyte Esterase Ur 1+ LEU/UL (Negative); Nitrate Urine Negative (Negative); Protein Urine Negative (Negative); Urobilinogen Urine 0.2 mg/dL (0.2-1.0); pH Urine 5.5 (5.0-8.0)
[2023-02-28] MEDS: cloNIDine HCL 0.1 MG TABLET PO (15:32)
[2023-02-28] MEDS: lisinopriL 10 MG TABLET 20 MG PO (15:32)
[2023-02-28 15:35] LABS: Add Urine Microscopic? YES; Bacteria Urine 1+ /hpf; RBC Urine 0-2 /hpf (0-2); Squamous Epithelial Cell Urine Few /hpf (Few)
[2023-02-28 15:40] LABS: Partial Thromboplastin Time 27.5 SEC (23.90-30.70); Prothrombin Time 11.4 Seconds (9.50-12.10)
[2023-02-28 15:48] LABS: Alanine Aminotransferase 20 U/L (14-59); Albumin Level 3.1 g/dL (3.4-5.0); Alkaline Phosphatase 77 U/L (46-116); Anion Gap 8 mmol/L (8-16); Aspartate Amino Transferase 10 U/L (15-37); Bilirubin,Total 0.4 mg/dL (0.00-1.00); Blood Urea Nitrogen 8 mg/dL (7-18); Calcium 9.2 mg/dL (8.5-10.1); Carbon Dioxide 32 mmol/L (21-32); Chloride 102 mmol/L (98-108); Estimated CRCL calculation 49 ml/min; Estimated Glomerular Filt Rate > 60; Glucose 157 mg/dL (70-99); Lactic Acid Reflex 1.8 mmol/L (0.4-2.0); Lipase 58 U/L (16-77); Osmolality Calculated 295 mOsm/kg (285-295); Potassium 3.5 mmol/L (3.5-5.1); Sodium 142 mmol/L (136-145); Total Protein 6.6 g/dL (6.4-8.2); Troponin I 18.2 ng/L (0.00-60.4)
--- NOTE | 2023-02-28 16:02 | PCCCNOTE ---
Was called to ED to talk to Sruthi about prison placement. Dr. Bonner sent her to ED for placement and she agrees she needs to go prison as she is not doing well at home alone. She would like to go to [facility] as Dr. Bonner can see her there. Referral faxed to the prison. PASRR Level 1 completed. No Level II needed.
[2023-02-28] MEDS: NITROFURANTOIN MONOHYD MACROCR 100 MG CAP PO (16:03)
--- NOTE | 2023-02-28 18:25 | ED.GENADULT ---
HPI - General Adult General Chief complaint: Unspecified Stated complaint: Unspecified Time Seen by Provider: 02/28/23 14:58 Source: patient Mode of arrival: ambulatory Limitations: altered mental status History of Present Illness HPI narrative: Patient is a 2-year-old female with a significant past medical history that presents today for confusion, debility, minor abdominal pain. She was sent here by her primary care physician because she was in the office and very confused and unaware she was not know what medication she was supposed to be taking. She was supposed to be in a retirement placement but he hospital last week when her out and she did not get placed in retirement. They would like us to get her placed into a retirement. She is still very confused and cannot tell me what day it is or the year or the date. She has trouble walking and getting around and moving she is using walker device. Onset (ago): day(s) Location: abdomen Radiation: non-radiation Severity: mild Severity scale (1-10): 1 Quality: aching Pain Consistency: intermittent Relieving factors: none Exacerbating factors: none Associated symptoms: weakness Related Data Home Medications Medication Instructions Recorded Confirmed allopurinol 100 mg tablet 100 mg PO BID 11/25/20 02/28/23 duloxetine 30 mg capsule,delayed 60 mg PO DAILY 11/25/20 02/28/23 release insulin aspart U-100 100 unit/mL 4 unit subcut 1200,1700 11/25/20 02/28/23 (3 mL) subcutaneous pen (Novolog FlexPen U-100 Insulin aspart) levothyroxine 50 mcg tablet 50 mcg PO DAILY 11/25/20 02/28/23 insulin aspart U-100 100 unit/mL 4 unit subcut 0800 06/28/21 02/28/23 (3 mL) subcutaneous pen (Novolog FlexPen U-100 Insulin aspart) atorvastatin 20 mg tablet 20 mg PO DAILY 07/23/21 02/28/23 pantoprazole 40 mg tablet,delayed 40 mg PO BID 07/23/21 02/28/23 release lisinopril 20 mg tablet 40 mg PO DAILY 02/04/22 02/28/23 amlodipine 10 mg tablet 10 mg PO DAILY 02/28/23 02/28/23 carvedilol 6.25 mg tablet 6.25 mg PO BID 02/28/23 02/28/23 erythromycin 5 mg/gram (0.5 %) eye 1 applic RIGHT EYE TID 02/28/23 02/28/23 ointment hydralazine 50 mg tablet 25 mg PO BID 02/28/23 02/28/23 insulin glargine-yfgn 100 unit/mL 25 unit subcut DAILY 02/28/23 02/28/23 (3 mL) subcutaneous pen sennosides 8.6 mg capsule 8.6 mg PO BID 02/28/23 02/28/23 Allergies Allergy/AdvReac Type Severity Reaction Status Date / Time Sulfa (Sulfonamide Allergy Itching Verified 02/28/23 15:05 Antibiotics) Review of Systems Review of Systems: All systems reviewed & are unremarkable except as noted in HPI and below Constitutional: Constitutional: Reports fatigue, Reports frequent falls, Reports lethargy and Reports weakness Comments: confusion Eyes: Eyes: Reports no additional eye complaints ENT: Reports system reviewed and no additional complaints, except as documented Cardiovascular: Cardiovascular: Reports no additional cardiovascular complaints Respiratory: Respiratory: Reports no additional respiratory complaints Gastrointestinal: Gastrointestinal: Reports as per HPI and Reports abdominal pain Genitourinary: Genitourinary: Reports no additional female genitourinary complaints Musculoskeletal: Musculoskeletal: Reports deformity, Reports arthralgias, Reports muscle weakness and Reports stiffness Neurologic: Reports system reviewed and no additional complaints, except as documented Psychiatric: Psychiatric: Reports no additional psychiatric complaints Endocrine: Endocrine: Reports no additional endocrine complaints [facility] Past Medical History Medical History Acute blood loss anemia Anemia Asthma Cervical cancer CHF (congestive heart failure) EF 55-60% Diabetes mellitus GI bleed Gout HTN (hypertension) Hypothyroid Melena Ovarian mass Surgical History Surgical History Hi
--- NOTE | 2023-02-28 19:29 | PC.NURSE ---
1919-REPORT FROM RODRICK TRAYLOR. PT WAITING PENDING ADMISSION.
--- NOTE | 2023-02-28 19:54 | PC.NURSE ---
1954-REPORT CALLED TO KYMBERLY NORRIS. PT CAN BE TRANSPORTED TO FLOOR ONCE PHYSICIAN MEDICATION RECONCILIATION IS COMPLETE. PHYSICIAN MADE AWARE.
--- NOTE | 2023-02-28 20:39 | ADMGEN ---
This patient, Sruthi Prather, was admitted to 2nd Floor Room 209-1. Patient/family oriented to hospital policies and general routines including ID bracelet, bed and alarms, visiting hours, pain management, procedures, bathroom and other care routines, personal items, smoking policy, room service/diet, and visiting hours. Information on how to activate the Rapid Response Team has been discussed. Patient/Family are encouraged to report perceived risks to care and to ask questions if they do not understand what they are told or what they should do.
[2023-02-28] MEDS: carvediloL 6.25 MG TABLET PO (21:03)
[2023-02-28] MEDS: PANTOPRAZOLE 40 MG TABLET PO (21:03)
[2023-02-28] MEDS: ACETAMINOPHEN 325 MG TABLET 650 MG PO (21:37)
--- NOTE | 2023-03-01 04:45 | PC.NURSE ---
On 03/01/23, the [facility], [Lyric Pereira ], provided care and completed [facility] documentation on this patient. I have reviewed the [facility]'s documentation and agree with the findings.
[2023-03-01 07:51] VITALS: BP 132/44; PULSE 70; RESP 18; TEMP 37.8; O2SAT 98
[2023-03-01 07:55] LABS: Glucose Point of Care 172 mg/dl (65-105)
[2023-03-01 08:06] LABS: Hematocrit 37.7 % (35.0-42.0); Hemoglobin 12.4 g/dL (11.7-13.8); Mean Corpuscular HGB Conc 32.9 g/dL (32.0-36.0); Mean Corpuscular Hemoglobin 27.9 pg (27.0-31.0); Mean Corpuscular Volume 84.7 fL (78.0-102.0); Mean Platelet Volume 11.3 fl (9.2-11.8); Platelet Count Result 174 K/mm3 (150-420); Red Blood Count 4.45 M/mm3 (4.20-5.40); Red Cell Distribution Width 14.8 % (11.6-14.4); White Blood Count 8.8 K/mm3 (4.8-10.8)
[2023-03-01 08:22] LABS: Anion Gap 11 mmol/L (8-16); Blood Urea Nitrogen 8 mg/dL (7-18); Calcium 8.7 mg/dL (8.5-10.1); Carbon Dioxide 26 mmol/L (21-32); Chloride 100 mmol/L (98-108); Estimated CRCL calculation 45 ml/min; Estimated Glomerular Filt Rate > 60; Glucose 179 mg/dL (70-99); Osmolality Calculated 286 mOsm/kg (285-295); Potassium 3.6 mmol/L (3.5-5.1); Sodium 137 mmol/L (136-145)
--- NOTE | 2023-03-01 08:38 | PM.IMHP ---
H&P: HPI History of Present Illness Date/Time: 03/01/23 08:38 Chief Complaint: Placement need, Confusion/ Dementia Narrative: This is a year old female that presented to the emergency room from her PCP and was confused. Patient when I examined her was orientated to self unaware of her surrounding and did not know where she was. Breakfast was in front of her and her bowl of cerael was on the floor spilled on the right and her orange juice was on the floor spilled to the left. When questioned what happened patient was unaware of what happened or even that it was on floor. Patient is not aware of her past medical history and she is very hard of hearing and is in need of placement. Reviewed patient old chart and it looks as if she is a diabetic with hypertension, anemia, ovarian mass,congestive heart failure when examing her it looks like she had sometype of abdominal surgery. Patient is obese Review of Systems Review of Systems: confusion All systems reviewed & are unremarkable except as noted in HPI and below PMFSH Past Medical History Medical History Acute blood loss anemia Anemia Asthma Cervical cancer CHF (congestive heart failure) EF 55-60% Diabetes mellitus GI bleed Gout HTN (hypertension) Hypothyroid Melena Ovarian mass Surgical History Surgical History History of bilateral knee replacement History of cholecystectomy History of total abdominal hysterectomy Family History Family History Father ETOH abuse Mother ETOH abuse Sibling ETOH abuse Grandparent Diabetes mellitus Sibling COPD (chronic obstructive pulmonary disease) Social History Social History Smoking status: Never smoker Second hand tobacco smoke exposure: No Alcohol intake: former Substance use: never Substance use type: does not use Lack of Transportation: No Lack of Food: Never True Current Housing: I Have Housing Concerned About Future Housing: No Difficulty Paying Gas/Electric Bills: No Difficulty Paying for Meds: No Currently Unemployed: No Education: High School Diploma/GED Difficulty w/ Childcare or Family Care: No Living arrangements: with friend(s) Gender identity (if verbalized by the patient): Female Spiritual care concerns: No Meds Home Medications and Allergies Home Medications Medication Instructions Recorded Confirmed Type allopurinol 100 mg tablet 100 mg PO BID 11/25/20 02/28/23 History duloxetine 30 mg capsule,delayed 60 mg PO DAILY 11/25/20 02/28/23 History release insulin aspart U-100 100 unit/mL 4 unit subcut 1200,1700 11/25/20 02/28/23 History (3 mL) subcutaneous pen (Novolog FlexPen U-100 Insulin aspart) levothyroxine 50 mcg tablet 50 mcg PO DAILY 11/25/20 02/28/23 History polyethylene glycol 3350 17 gram 17 g PO QAM PRN Constipation #14 ea 11/27/20 02/28/23 Rx oral powder packet (Miralax) potassium chloride 10 mEq 10 meq PO DAILY@0800 #30 tabs 11/27/20 02/28/23 Rx tablet,extended release (K-Tab) insulin aspart U-100 100 unit/mL 4 unit subcut 0800 06/28/21 02/28/23 History (3 mL) subcutaneous pen (Novolog FlexPen U-100 Insulin aspart) atorvastatin 20 mg tablet 20 mg PO DAILY 07/23/21 02/28/23 History pantoprazole 40 mg tablet,delayed 40 mg PO BID 07/23/21 02/28/23 History release lisinopril 20 mg tablet 40 mg PO DAILY 02/04/22 02/28/23 History amlodipine 10 mg tablet 10 mg PO DAILY 02/28/23 02/28/23 History carvedilol 6.25 mg tablet 6.25 mg PO BID 02/28/23 02/28/23 History erythromycin 5 mg/gram (0.5 %) eye 1 applic RIGHT EYE TID 02/28/23 02/28/23 History ointment hydralazine 50 mg tablet 25 mg PO BID 02/28/23 02/28/23 History insulin glargine-yfgn 100 unit/mL 25 unit subcut DAILY 02/28/23 02/28/23 History (3
[2023-03-01] MEDS: INSULIN GLARGINE (*BKC) 1,000 UNITS/10 ML VIAL 25 UNITS SUB-Q (09:00)
[2023-03-01] MEDS: INSULIN HUMAN LISPRO (*BKC) 1,000 UNITS/10 ML VIAL 4 UNITS SUB-Q (09:03)
[2023-03-01] MEDS: DULoxetine HCL 30 MG CAPSULE.DR 60 MG PO (09:05)
[2023-03-01] MEDS: hydrALAZINE HCL 25 MG TABLET PO ×2 (09:05→20:29)
[2023-03-01] MEDS: amLODIPine BESYLATE 5 MG TABLET 10 MG PO (09:05)
[2023-03-01] MEDS: lisinopriL 20 MG TABLET 40 MG PO (09:06)
[2023-03-01] MEDS: ATORVASTATIN 10 MG TABLET 20 MG PO (09:06)
[2023-03-01 09:07] VITALS: PULSE 70
[2023-03-01] MEDS: carvediloL 6.25 MG TABLET PO ×2 (09:07→20:29)
[2023-03-01] MEDS: LEVOTHYROXINE SODIUM 50 MCG TABLET PO (09:07)
[2023-03-01] MEDS: allopurinoL 100 MG TABLET PO ×2 (09:07→17:11)
[2023-03-01] MEDS: POTASSIUM CHLORIDE 10 MEQ ER TABLET PO (09:08)
[2023-03-01] MEDS: SENNOSIDES 8.6 MG TABLET PO ×2 (09:08→17:11)
[2023-03-01] MEDS: PANTOPRAZOLE 40 MG TABLET PO ×2 (09:08→20:29)
[2023-03-01 09:42] LABS: Hemoglobin A1C 7.3 % (<5.7)
[2023-03-01] MEDS: NEOMYCIN/POLYMYXIN/DEXAMETH OP OINT 3.5 GM TUBE 1 APPLIC RIGHT EYE ×4 (10:44→20:29)
[2023-03-01 11:30] LABS: Glucose Point of Care 190 mg/dl (65-105)
[2023-03-01] MEDS: ACETAMINOPHEN 325 MG TABLET 650 MG PO ×2 (12:52→20:29)
--- NOTE | 2023-03-01 13:30 | PC.NURSE ---
Patient changed from observation status to inpatient status.
[2023-03-01 16:00] VITALS: BP 136/58; PULSE 61; RESP 18; TEMP 36.6; O2SAT 97
[2023-03-01 16:35] LABS: Glucose Point of Care 158 mg/dl (65-105)
[2023-03-01 20:00] VITALS: PULSE 59; RESP 18; O2SAT 97
[2023-03-01 20:29] VITALS: PULSE 59
[2023-03-01 20:33] LABS: Glucose Point of Care 145 mg/dl (65-105)
[2023-03-02] VITALS: BP 146/56; PULSE 59; RESP 16; TEMP 36.3; O2SAT 95
[2023-03-02 07:36] LABS: Glucose Point of Care 108 mg/dl (65-105)
[2023-03-02 08:00] VITALS: BP 126/92; PULSE 55; RESP 16; TEMP 36; O2SAT 97
[2023-03-02] MEDS: DULoxetine HCL 30 MG CAPSULE.DR 60 MG PO (08:55)
[2023-03-02] MEDS: amLODIPine BESYLATE 5 MG TABLET 10 MG PO (08:56)
[2023-03-02] MEDS: PANTOPRAZOLE 40 MG TABLET PO ×2 (08:56→20:13)
[2023-03-02] MEDS: ATORVASTATIN 10 MG TABLET 20 MG PO (08:56)
[2023-03-02] MEDS: allopurinoL 100 MG TABLET PO ×2 (08:57→16:35)
[2023-03-02] MEDS: hydrALAZINE HCL 25 MG TABLET PO ×2 (08:58→20:13)
[2023-03-02] MEDS: lisinopriL 20 MG TABLET 40 MG PO (08:58)
[2023-03-02] MEDS: LEVOTHYROXINE SODIUM 50 MCG TABLET PO (08:58)
[2023-03-02] MEDS: POTASSIUM CHLORIDE 10 MEQ ER TABLET PO (08:59)
[2023-03-02] MEDS: SENNOSIDES 8.6 MG TABLET PO ×2 (08:59→16:35)
[2023-03-02] MEDS: NEOMYCIN/POLYMYXIN/DEXAMETH OP OINT 3.5 GM TUBE 1 APPLIC RIGHT EYE ×4 (08:59→20:13)
--- NOTE | 2023-03-02 09:12 | PC.NURSE ---
Firearms Expert held carvedilol due to pulse of 55 today.
--- NOTE | 2023-03-02 11:05 | PM.IMPN ---
Progress Note: A&P Assessment and Plan (1) Acute UTI: Code(s): N39.0 - Urinary tract infection, site not specified Status: Acute (2) Dementia: Code(s): F03.90 - Unspecified dementia, unspecified severity, without behavioral disturbance, psychotic disturbance, mood disturbance, and anxiety Status: Acute (3) Dyslipidemia: Code(s): E78.5 - Hyperlipidemia, unspecified Status: Acute (4) HTN (hypertension): Code(s): I10 - Essential (primary) hypertension Status: Acute (5) Diabetes mellitus: Code(s): E11.9 - Type 2 diabetes mellitus without complications Status: Acute (6) Acute exacerbation of CHF (congestive heart failure): Qualifiers: Heart failure type: unspecified Qualified Code(s): I50.9 - Heart failure, unspecified Code(s): I50.9 - Heart failure, unspecified Status: Acute (7) detention as place of occurrence of external cause: Code(s): Y92.129 - Unspecified place in [facility] as the place of occurrence of the external cause Status: Acute Plan #1 Treat with increase fluids and daily rocephin wait for culture results Patient pulled out IV and she is aggravated does not want IV placed put patient on Macrobid Monitoring for culture #2 needs a [facility] placement Case management notified. #3 continue home medication #4 monitor patient blood pressure continue to administer medication and address accordingly #5 A1c pending, accuchecks ACHs low dose sliding scale hold all oral antiglycimic medication ; A1C 7.1 #6 continue all home medication for this #7 consult case Management for [facility] placement We will treat any acute illness until we are able to place patient she currently have a fever we will treat w antipyretics and will order Xray as one has not been completed Patient becomes agitated when they attempted to get her up. Patient is not sleeping at night but she is sleeping all day and she is not willing to get out of the bed. Patient is a high fall risk and she just jumps out of the bed as she does not remember to call first. Labs will drawn in the am and we are awaiting for [facility] placement Subjective Date/time seen: 03/02/23 11:05 Exam Narrative: confusion alert to self but not surrounding Const: General: cooperative, healthy appearing, comfortable, no acute distress, confusion and average body habitus Nutritional Appearance: average body habitus Orientation/consciousness: oriented to person, oriented to place and confusion Limitations: altered mental status HENMT: Head: normal to inspection Ears: hearing grossly normal bilaterally Eyes: General: appearance normal, both eyes and all related structures Visual Soriano: normal visual soriano by confrontation Alignment and Position: alignment normal Other: right eye erythema and drooping with some drainage noted. Neck: Neck: normal visual inspection and supple Chest: Chest palpation & inspection: normal inspection of the chest Resp: Effort & Inspection: normal respiratory effort and able to speak in complete sentences Auscultation: clear to auscultation bilaterally Cardio: Jugular venous distension: no JVD Palpation: normal PMI Rate: regular rate Rhythm: regular rhythm Heart sounds: S1 normal heart sound present and S2 normal heart sound present GI: Inspection: normal to inspection and distended Auscultation: normal bowel sounds : General: Yes no CVA tenderness Back/Spine/Pelvis: Back: no CVA tenderness Cervical Spine: normal cervical lordosis Thoracic/Lumbar Spine: thoracic and lumbar spine normal to inspection Skin: General skin exam: normal color Lesions: no lesions Rashes: no rashes Trauma: no lacerations or abrasions Wounds: no wounds Neuro: General: oriented to person, oriented to place and confusion Cognition (Neuro): normal cognition and abnormal cognition Speech: normal speech Gait exam (Neuro):
[2023-03-02 11:43] LABS: Glucose Point of Care 141 mg/dl (65-105)
[2023-03-02] MEDS: ACETAMINOPHEN 325 MG TABLET 650 MG PO ×2 (12:07→20:13)
[2023-03-02 16:00] VITALS: BP 153/69; PULSE 60; RESP 16; TEMP 36.3; O2SAT 97
[2023-03-02 16:40] LABS: Glucose Point of Care 159 mg/dl (65-105)
[2023-03-02 20:00] VITALS: BP 181/70; PULSE 70; RESP 16; O2SAT 97
[2023-03-02 20:13] VITALS: PULSE 70
[2023-03-02] MEDS: carvediloL 6.25 MG TABLET PO (20:13)
[2023-03-02] MEDS: NITROFURANTOIN MONOHYD MACROCR 100 MG CAP PO (20:13)
[2023-03-02 20:18] LABS: Glucose Point of Care 177 mg/dl (65-105)
[2023-03-02 23:40] VITALS: BP 174/70
--- NOTE | 2023-03-02 23:40 | PC.NURSE ---
Pt BP now 174/70 (slight improvement from 181/70), pt also requesting sleeping pill. Charge nurse has left message for SCIENCE AND OPERATIONS OFFICER, awaiting return call.
[2023-03-03] VITALS (7 sets, daily range): BP systolic 152–174; BP diastolic 57–75; PULSE 68–87; RESP 17–18; TEMP 36.2–36.8; O2SAT 96–98
[2023-03-03 05:21] LABS: Hematocrit 39.6 % (35.0-42.0); Hemoglobin 12.9 g/dL (11.7-13.8); Mean Corpuscular HGB Conc 32.6 g/dL (32.0-36.0); Mean Corpuscular Hemoglobin 27.3 pg (27.0-31.0); Mean Corpuscular Volume 83.7 fL (78.0-102.0); Mean Platelet Volume 10.5 fl (9.2-11.8); Platelet Count Result 172 K/mm3 (150-420); Red Blood Count 4.73 M/mm3 (4.20-5.40); Red Cell Distribution Width 14.6 % (11.6-14.4); White Blood Count 7.5 K/mm3 (4.8-10.8)
[2023-03-03 05:33] LABS: Anion Gap 9 mmol/L (8-16); Blood Urea Nitrogen 8 mg/dL (7-18); Calcium 8.7 mg/dL (8.5-10.1); Carbon Dioxide 27 mmol/L (21-32); Chloride 101 mmol/L (98-108); Estimated CRCL calculation 53 ml/min; Estimated Glomerular Filt Rate > 60; Glucose 143 mg/dL (70-99); Osmolality Calculated 284 mOsm/kg (285-295); Potassium 3.3 mmol/L (3.5-5.1); Sodium 137 mmol/L (136-145)
[2023-03-03] MEDS: NITROFURANTOIN MONOHYD MACROCR 100 MG CAP PO ×2 (08:31→20:07)
[2023-03-03] MEDS: lisinopriL 20 MG TABLET 40 MG PO (08:31)
[2023-03-03] MEDS: POTASSIUM CHLORIDE 20 MEQ ER TABLET 40 MEQ PO (08:31)
[2023-03-03] MEDS: DULoxetine HCL 30 MG CAPSULE.DR 60 MG PO (08:31)
[2023-03-03] MEDS: SENNOSIDES 8.6 MG TABLET PO ×2 (08:32→17:43)
[2023-03-03] MEDS: allopurinoL 100 MG TABLET PO ×2 (08:32→17:43)
[2023-03-03] MEDS: amLODIPine BESYLATE 5 MG TABLET 10 MG PO (08:32)
[2023-03-03] MEDS: carvediloL 6.25 MG TABLET PO ×2 (08:32→20:07)
[2023-03-03] MEDS: ATORVASTATIN 10 MG TABLET 20 MG PO (08:32)
[2023-03-03] MEDS: POTASSIUM CHLORIDE 10 MEQ ER TABLET PO (08:32)
[2023-03-03] MEDS: NEOMYCIN/POLYMYXIN/DEXAMETH OP OINT 3.5 GM TUBE 1 APPLIC RIGHT EYE ×4 (08:33→20:07)
[2023-03-03] MEDS: PANTOPRAZOLE 40 MG TABLET PO ×2 (08:33→20:07)
[2023-03-03] MEDS: hydrALAZINE HCL 25 MG TABLET PO ×2 (08:33→20:07)
--- NOTE | 2023-03-03 09:57 | PM.IMPN ---
Progress Note: A&P Assessment and Plan (1) Acute UTI: Code(s): N39.0 - Urinary tract infection, site not specified Status: Acute Assessment and Plan: Patient pulled out IV and she is aggravated does not want IV placed put patient on Macrobid Monitoring for culture (2) Dementia: Code(s): F03.90 - Unspecified dementia, unspecified severity, without behavioral disturbance, psychotic disturbance, mood disturbance, and anxiety Status: Acute Assessment and Plan: needs a group home placement Case management notified. (3) Dyslipidemia: Code(s): E78.5 - Hyperlipidemia, unspecified Status: Acute Assessment and Plan: continue home medication (4) HTN (hypertension): Code(s): I10 - Essential (primary) hypertension Status: Acute Assessment and Plan: monitor patient blood pressure continue to administer medication and address accordingly blood pressure reviewed on 03/03 (5) Diabetes mellitus: Code(s): E11.9 - Type 2 diabetes mellitus without complications Status: Acute Assessment and Plan: accuchecks ACHs low dose sliding scale hold all oral antiglycemic medication ; A1C 7.1 (6) Conjunctivitis, right eye: Code(s): H10.9 - Unspecified conjunctivitis Status: Acute Assessment and Plan: Right eye pain/swelling since surgery. Contacted surgeon for follow-up appointment which is scheduled for March 20. Senior Data Warehouse Architect recommended atropine on for pain control. Atropine ointment not available, drops substituted. Plan Patient becomes agitated when they attempted to get her up. Patient is not sleeping at night but she is sleeping all day and she is not willing to get out of the bed. Patient is a high fall risk and she just jumps out of the bed as she does not remember to call first. Labs will drawn in the am and we are awaiting for group home placement Time Spent With Patient Time with patient: 25 - 35 minutes Subjective Date/time seen: 03/03/23 09:57 Interval history: This is an 82 year old female who is unable to care for herself at home. She was admitted for UTI and group home placement. Patient confused. She complains of only right eye redness and pain since cataract surgery over the summer. Nursing staff has seen patient wipe her eye with toilet tissue she wiped her backside with just prior to wiping her eye. Previous provider started eye ointment for treatment, we will reach out to radio artist for follow-up. Patient unable to hold still for me to evaluate the eye but there is cloudiness of the lower iris and erythema the sclera and conjunctiva. This is all I could evaluate. Review of Systems Review of Systems: confusion All systems reviewed & are unremarkable except as noted in HPI and below Neurologic: Reports confusion Psychiatric: Psychiatric: Reports confusion Exam Narrative: confusion alert to self but not surrounding Const: General: cooperative, healthy appearing, comfortable, no acute distress, confusion and average body habitus Nutritional Appearance: average body habitus Orientation/consciousness: oriented to person, oriented to place and confusion Limitations: altered mental status HENMT: Head: normal to inspection Ears: hearing grossly normal bilaterally Eyes: Alignment and Position: alignment normal Other: right eye erythema and drooping with some drainage noted. Patient unable to hold still for me to evaluate the eye but there is cloudiness of the lower iris and erythema the sclera and conjunctiva. This is all I could eval Neck: Neck: normal visual inspection and supple Chest: Chest palpation & inspection: normal inspection of the chest Resp: Effort & Inspection: normal respiratory effort and able to speak in complete sentences Auscultation: clear to auscultation bilaterally Cardio: Jugular venous distension: no JVD Palpation: normal PMI Rate: reg
[2023-03-03 12:07] LABS: Glucose Point of Care 173 mg/dl (65-105)
[2023-03-03] MEDS: ATROPINE SULFATE 1% OPHTH SOLN 5 ML BOTTLE 2 DROP RIGHT EYE ×2 (13:35→17:43)
[2023-03-03 17:08] LABS: Glucose Point of Care 154 mg/dl (65-105)
[2023-03-03] MEDS: ENOXAPARIN 40 MG/0.4 ML SYRINGE SUB-Q (17:42)
[2023-03-03] MEDS: ACETAMINOPHEN 325 MG TABLET 650 MG PO (20:07)
[2023-03-03 20:11] LABS: Glucose Point of Care 206 mg/dl (65-105)
--- NOTE | 2023-03-03 21:39 | PC.NURSE ---
Addendum entered by Marcela Randhawa RN 03/03/23 21:43: Time error, occurred at 2030 Original Note: Pt noted getting out of bed, bed alarm sounding, pt denies needing the bathroom at this time, pt confused, reoriented to place, time, and situation. Pt wanting to sit in recliner with BLE elevated and watch TV, denies further needs at this time.
[2023-03-04] VITALS: BP 156/52; PULSE 68; RESP 16; TEMP 36.7; O2SAT 98
--- NOTE | 2023-03-04 | PC.NURSE ---
Patient confusion and anxiety continues, is asking for clothes, and stating she wants to go home, has been up multiple times. Attempts made to reorient pt, with limited effectiveness. Patient continues to be cooperative with staff. Patient continues to forget to use call light, bed alarm on and functioning properly.
--- NOTE | 2023-03-04 03:58 | PC.NURSE ---
Pt noted starting to get up, ambulated to bathroom with SBA and 4 wheeled walker, continent of urine, pt continues to be pleasantly confused, unable to reorient d/t hearing loss, hearing aids not in at this time, pt agreeable to go back to bed. No distress noted.
[2023-03-04] MEDS: LEVOTHYROXINE SODIUM 50 MCG TABLET PO (05:50)
[2023-03-04 08:00] VITALS: BP 149/60; PULSE 68; RESP 16; TEMP 35.9; O2SAT 96
[2023-03-04 08:05] LABS: Glucose Point of Care 121 mg/dl (65-105)
[2023-03-04] MEDS: SENNOSIDES 8.6 MG TABLET PO (09:29)
[2023-03-04] MEDS: ENOXAPARIN 40 MG/0.4 ML SYRINGE SUB-Q (09:29)
[2023-03-04] MEDS: DULoxetine HCL 30 MG CAPSULE.DR 60 MG PO (09:29)
[2023-03-04 09:30] VITALS: PULSE 68
[2023-03-04] MEDS: POTASSIUM CHLORIDE 10 MEQ ER TABLET PO (09:30)
[2023-03-04] MEDS: amLODIPine BESYLATE 5 MG TABLET 10 MG PO (09:30)
[2023-03-04] MEDS: ATORVASTATIN 10 MG TABLET 20 MG PO (09:30)
[2023-03-04] MEDS: allopurinoL 100 MG TABLET PO (09:30)
[2023-03-04] MEDS: carvediloL 6.25 MG TABLET PO (09:30)
[2023-03-04] MEDS: lisinopriL 20 MG TABLET 40 MG PO (09:30)
[2023-03-04] MEDS: NITROFURANTOIN MONOHYD MACROCR 100 MG CAP PO (09:31)
[2023-03-04] MEDS: hydrALAZINE HCL 25 MG TABLET PO (09:31)
[2023-03-04] MEDS: PANTOPRAZOLE 40 MG TABLET PO (09:31)
[2023-03-04] MEDS: NEOMYCIN/POLYMYXIN/DEXAMETH OP OINT 3.5 GM TUBE 1 APPLIC RIGHT EYE (09:33)
[2023-03-04] MEDS: ATROPINE SULFATE 1% OPHTH SOLN 5 ML BOTTLE 2 DROP RIGHT EYE (09:33)
--- NOTE | 2023-03-04 10:00 | PM.DS ---
DS: Admitting Diagnosis Discharge Date 03/04/2023 Admitting Diagnosis acute UTI, dementia, dyslipidemia, hypertension, diabetes mellitus DS: Discharge Diagnosis Discharge Diagnosis (1) Acute UTI: Code(s): N39.0 - Urinary tract infection, site not specified Status: Acute (2) Dementia: Code(s): F03.90 - Unspecified dementia, unspecified severity, without behavioral disturbance, psychotic disturbance, mood disturbance, and anxiety Status: Acute (3) Dyslipidemia: Code(s): E78.5 - Hyperlipidemia, unspecified Status: Acute (4) HTN (hypertension): Code(s): I10 - Essential (primary) hypertension Status: Acute (5) Diabetes mellitus: Code(s): E11.9 - Type 2 diabetes mellitus without complications Status: Acute (6) Conjunctivitis, right eye: Code(s): H10.9 - Unspecified conjunctivitis Status: Acute DS: Summary Hospital Course Reason for hospitalization: Patient was admitted due to confusion and inability to care for herself Hospital Course: Patient arrived to primary care provider's office with a bag full of medications did not know how she was supposed to take her medicines what medicine she was supposed to be on or how to take care of herself at home any longer. Patient was sent from PCP office to the emergency department to be admitted for halfway placement. Patient unable to be placed in the halfway directly from the emergency department so she was admitted to the hospital. Patient was intermittently agitated and aggressive. She complained of right eye pain and redness while she was here, notes this was present since surgery earlier this summer. Appointment was made with patient's fixed income manager for follow-up an fixed income manager recommended antibiotic ointment and atropine ointment. Atropine ointment was not available so atropine drops was used instead for pain control. Arrangements made for patient to go to [facility] after discharge. Status at Discharge Cognitive/behavioral status at discharge: awake, alert, confused Functional status at discharge: uses cane/walker Overall status at discharge: patient is not back to baseline Time Spent with Patient Time attestation: Total time spent providing and/or coordinating discharge services: 40 minutes Time spent: Greater than 30 minutes Exam Narrative: confusion alert to self but not surrounding Const: General: cooperative, healthy appearing, comfortable, no acute distress, confusion and average body habitus Nutritional Appearance: average body habitus Orientation/consciousness: oriented to person, oriented to place and confusion Limitations: altered mental status HENMT: Head: normal to inspection Ears: hearing grossly normal bilaterally Eyes: General: appearance normal, both eyes and all related structures Visual Soriano: normal visual soriano by confrontation Alignment and Position: alignment normal Other: right eye erythema and drooping with some drainage noted. Patient unable to hold still for me to evaluate the eye but there is cloudiness of the lower iris and erythema the sclera and conjunctiva. This is all I could eval Neck: Neck: normal visual inspection and supple Chest: Chest palpation & inspection: normal inspection of the chest Resp: Effort & Inspection: normal respiratory effort and able to speak in complete sentences Auscultation: clear to auscultation bilaterally Cardio: Jugular venous distension: no JVD Palpation: normal PMI Rate: regular rate Rhythm: regular rhythm Heart sounds: S1 normal heart sound present and S2 normal heart sound present GI: Inspection: normal to inspection and distended Auscultation: normal bowel sounds : General: Yes no CVA tenderness Back/Spine/Pelvis: Back: no CVA tenderness Cervical Spine: normal cervical lordosis Thoracic/Lumbar Spine: thoracic and lumbar spine normal to inspection Skin: General skin exam
--- NOTE | 2023-03-04 11:15 | PC.NURSE ---
Gave report to Marsha at [facility]. All questions answered. Pt to be transported by SN&R staff via wheelchair.
[2023-03-04 11:20] LABS: Glucose Point of Care 175 mg/dl (65-105)
--- NOTE | 2023-03-11 13:31 | PC.NURSE ---
discharge call back complete, spoke with detention, no questions or concerns
== END 2023-03-04 11:45 | DRG 690 ==
LOC: CHSED 19:38 → CHS2ND 03-01 09:44
PROVIDERS: Nurse Practitioner Family; Admitting Provider Internal Medicine; Emergency Provider Family Medicine; PCP Internal Medicine; Visit Provider Internal Medicine
DX: N39.0 Urinary tract infection, site not specified (principal); I11.0 Hypertensive heart disease with heart failure; I50.9 Heart failure, unspecified; E03.9 Hypothyroidism, unspecified; E11.9 Type 2 diabetes mellitus without complications; J45.909 Unspecified asthma, uncomplicated; M10.9 Gout, unspecified; H10.9 Unspecified conjunctivitis; F03.90 Unspecified dementia, unspecified severity, without behavioral disturbance, psychotic disturbance, mood disturbance, and anxiety; Z96.653 Presence of artificial knee joint, bilateral; Z85.41 Personal history of malignant neoplasm of cervix uteri; Z79.4 Long term (current) use of insulin
CPT/HCPCS: 36415; 71046; 80048; 80053; 81001; 82948; 83036; 83605; 83690; 84484; 85025; 85027; 85610; 85730; 87086; 93005; 96365; 97161; 97165; A9270; G0378; J0696; J1650; J1815

== ENCOUNTER 2023-05-15 15:56 | Outpatient (CLI) | payer MEDICARE, BC, SELFPAY ==
--- NOTE | ~2023-05-15 | XR_ITS ---
EXAM: XR hip BI wo pelvis DATE: 05/15/2023 16:21 HISTORY: right shoulder and BL hip pain/NO TRAUMA . COMPARISON: CT abdomen pelvis 06/27/2021. FINDINGS: Normal mineralization. No fracture or dislocation. No lytic or blastic lesion. Lumbar dege nerative disc disease. Moderate superior joint space narrowing and osteophytosis in the left hip. Mil d degenerative change in the right hip. Mild osteitis pubis. Scattered pelvic enthesopathy A surgical clip overlies the pelvis. Pelvic phleboliths. No erosion or periosteal change. Soft tissues within n ormal limits. IMPRESSION: Moderate right and mild left hip osteoarthritis. Reviewed, dictated and finalized at location K. GING JEWELER
--- NOTE | ~2023-05-15 | XR_ITS ---
EXAM: XR shoulder RT min 2V DATE: 05/15/2023 16:21 HISTORY: right shoulder and BL hip pain/NO TRAUMA . COMPARISON: 05/03/2021. FINDINGS: Normal mineralization. No fracture or dislocation. No lytic or blastic lesion. Mild AC vanesa nt and moderate glenohumeral joint degenerative change. Large glenohumeral joint osteophyte. An anter ior loose joint body or soft tissue calcification seen in the prior study is not present and likely o bscured by positioning. Minimal calcific deposition in the superior cuff. Degenerative cortical irreg ularity in the superior humeral head. No erosion or periosteal change. Soft tissues within normal paulino its. IMPRESSION: Moderate glenohumeral and mild AC joint osteoarthritis. Rotator cuff calcific tendinitis. Reviewed, dictated and finalized at location K. RESSED GASES TESTER IMPRESSION: Moderate glenohumeral and mild AC joint osteoarthritis. Rotator cuf f calcific tendinitis.
== END 2023-05-15 15:57 | disposition home or self-care (01) ==
LOC: CHSIMG 16:00
PROVIDERS: PCP Internal Medicine; Visit Provider Internal Medicine
DX: M25.511 Pain in right shoulder (principal); M25.552 Pain in left hip; M25.551 Pain in right hip; M16.0 Bilateral primary osteoarthritis of hip; M19.011 Primary osteoarthritis, right shoulder
CPT/HCPCS: 73030; 73521

== ENCOUNTER 2023-05-31 06:57 | Outpatient (CLI) | payer MEDICARE, BC, SELFPAY ==
[2023-05-31 07:44] LABS: Basophils Absolute Auto 0.02 K/mm3 (0.00-0.10); Basophils Percent Auto 0.3 % (0.0-1.0); Eosinophils Absolute Auto 0.05 K/mm3 (0.02-0.50); Eosinophils Percent Auto 0.7 % (1.0-6.0); Hematocrit 37.3 % (35.0-42.0); Hemoglobin 11.8 g/dL (11.7-13.8); Immature Granulocyte Absolute 0.04 K/mm3 (0.00-0.00); Immature Granulocyte Percent A 0.5 % (0.0-0.0); Lymphocytes Absolute Auto 2.05 K/mm3 (1.10-4.50); Mean Corpuscular HGB Conc 31.6 g/dL (32.0-36.0); Mean Corpuscular Hemoglobin 27.8 pg (27.0-31.0); Mean Platelet Volume 11.7 fl (9.2-11.8); Monocytes Absolute Auto 0.54 K/mm3 (0.10-0.90); Monocytes Percent Auto 7.4 % (2.0-11.0); Neutrophils Absolute Auto 4.6 K/mm3 (1.7-7.2); Neutrophils Percent Auto 63.1 % (50.0-70.0); Platelet Count Result 224 K/mm3 (150-420); Red Blood Count 4.24 M/mm3 (4.20-5.40); Red Cell Distribution Width 15.4 % (11.6-14.4); White Blood Count 7.3 K/mm3 (4.8-10.8)
[2023-05-31 08:06] LABS: Hemoglobin A1C 6.3 % (<5.7)
[2023-05-31 08:11] LABS: Alanine Aminotransferase 18 U/L (14-59); Albumin Level 3.2 g/dL (3.4-5.0); Alkaline Phosphatase 66 U/L (46-116); Anion Gap 9 mmol/L (8-16); Aspartate Amino Transferase < 10 U/L (15-37); Bilirubin,Total 0.2 mg/dL (0.00-1.00); Blood Urea Nitrogen 15 mg/dL (7-18); Calcium 8.5 mg/dL (8.5-10.1); Carbon Dioxide 26 mmol/L (21-32); Chloride 106 mmol/L (98-108); Cholesterol 140 mg/dL (0-200); Creatine Kinase 23 U/L (26-192); Estimated Glomerular Filt Rate > 60; Ferritin 85 ng/mL (8-252); Free T3 1.58 pg/mL (2.18-3.98); Free T4 Free Thyroxine 1.09 ng/dL (0.76-1.46); Glucose 120 mg/dL (70-99); HDL Direct 53 mg/dL (40-60); Iron 36 ug/dL (50-170); LDL Cholesterol Calculated 78 mg/dL (<130); NT Pro B Type Natriuretic Pept 562 pg/mL (0-450); Osmolality Calculated 293 mOsm/kg (285-295); Potassium 4.1 mmol/L (3.5-5.1); Sodium 141 mmol/L (136-145); Thyroid Stimulating Hormone 1.97 uIU/mL (0.36-3.74); Triglycerides 45 mg/dL (0-150); Uric Acid 3.4 mg/dL (2.6-6.0)
== END 2023-05-31 06:58 | disposition home or self-care (01) ==
PROVIDERS: PCP Internal Medicine; Visit Provider Internal Medicine
DX: D50.9 Iron deficiency anemia, unspecified (principal); E03.4 Atrophy of thyroid (acquired); E11.65 Type 2 diabetes mellitus with hyperglycemia; E78.2 Mixed hyperlipidemia; E79.0 Hyperuricemia without signs of inflammatory arthritis and tophaceous disease; I10 Essential (primary) hypertension; I50.9 Heart failure, unspecified; N39.0 Urinary tract infection, site not specified
CPT/HCPCS: 36415; 80053; 80061; 82550; 82728; 83036; 83540; 83880; 84439; 84443; 84481; 84550; 85025

== ENCOUNTER 2023-07-24 06:59 | Outpatient (NON) | payer MEDICARE, SELFPAY ==
[2023-07-24 07:15] LABS: Basophils Absolute Auto 0.05 K/mm3 (0.00-0.10); Basophils Percent Auto 0.8 % (0.0-1.0); Eosinophils Absolute Auto 0.22 K/mm3 (0.02-0.50); Eosinophils Percent Auto 3.4 % (1.0-6.0); Hematocrit 42.4 % (35.0-42.0); Hemoglobin 12.8 g/dL (11.7-13.8); Immature Granulocyte Absolute 0.02 K/mm3 (0.00-0.00); Immature Granulocyte Percent A 0.3 % (0.0-0.0); Lymphocytes Absolute Auto 2.01 K/mm3 (1.10-4.50); Lymphocytes Percent Auto 31.5 % (18.0-42.0); Mean Corpuscular HGB Conc 30.2 g/dL (32.0-36.0); Mean Corpuscular Hemoglobin 26.3 pg (27.0-31.0); Mean Corpuscular Volume 87.1 fL (78.0-102.0); Monocytes Absolute Auto 0.54 K/mm3 (0.10-0.90); Monocytes Percent Auto 8.5 % (2.0-11.0); Neutrophils Absolute Auto 3.6 K/mm3 (1.7-7.2); Neutrophils Percent Auto 55.5 % (50.0-70.0); Platelet Count Result 235 K/mm3 (150-420); Red Blood Count 4.87 M/mm3 (4.20-5.40); Red Cell Distribution Width 15.2 % (11.6-14.4); White Blood Count 6.4 K/mm3 (4.8-10.8)
[2023-07-24 08:28] LABS: Ferritin 134 ng/mL (8-252); Iron 38 ug/dL (50-170)
== END 2023-07-24 07:00 | disposition home or self-care (01) ==
LOC: CHSLAB 07:01
PROVIDERS: Visit Provider Internal Medicine
DX: D64.9 Anemia, unspecified (principal)
CPT/HCPCS: 36415; 82728; 83540; 85025

== ENCOUNTER 2023-08-26 06:55 | Outpatient (NON) | payer MEDICARE, SELFPAY ==
[2023-08-26 07:43] LABS: Anion Gap 7 mmol/L (4-12); Blood Urea Nitrogen 12 mg/dL (7-18); Calcium 8.7 mg/dL (8.5-10.1); Carbon Dioxide 31 mmol/L (21-32); Chloride 106 mmol/L (98-108); Estimated Glomerular Filt Rate > 60; Free T4 Free Thyroxine 0.99 ng/dL (0.76-1.46); Glucose 80 mg/dL (70-99); NT Pro B Type Natriuretic Pept 243 pg/mL (0-450); Osmolality Calculated 296 mOsm/kg (285-295); Sodium 144 mmol/L (136-145); Thyroid Stimulating Hormone 1.85 uIU/mL (0.36-3.74)
== END 2023-08-26 06:56 | disposition home or self-care (01) ==
LOC: CHSLAB 06:57
PROVIDERS: Visit Provider Internal Medicine
DX: I50.9 Heart failure, unspecified (principal); E03.9 Hypothyroidism, unspecified; E11.9 Type 2 diabetes mellitus without complications
CPT/HCPCS: 36415; 80048; 83880; 84439; 84443

== ENCOUNTER 2023-09-02 06:22 | Outpatient (NON) | payer MEDICARE, SELFPAY ==
[2023-09-02 06:41] LABS: Basophils Absolute Auto 0.17 K/mm3 (0.00-0.10); Basophils Percent Auto 3.9 % (0.0-1.0); Eosinophils Absolute Auto 0.17 K/mm3 (0.02-0.50); Eosinophils Percent Auto 3.9 % (1.0-6.0); Hematocrit 43.8 % (35.0-42.0); Hemoglobin 12.2 g/dL (11.7-13.8); Immature Granulocyte Absolute 0.07 K/mm3 (0.00-0.00); Immature Granulocyte Percent A 1.6 % (0.0-0.0); Immature Platelet Fraction Pct 4.5 % (1.0-7.0); Lymphocytes Absolute Auto 1.69 K/mm3 (1.10-4.50); Lymphocytes Percent Auto 38.7 % (18.0-42.0); Mean Corpuscular HGB Conc 27.9 g/dL (32-36); Mean Corpuscular Hemoglobin 28.2 pg (27.0-31.0); Mean Corpuscular Volume 101.2 fL (78.0-102.0); Mean Platelet Volume 12.5 fl (9.2-11.8); Monocytes Absolute Auto 0.34 K/mm3 (0.10-0.90); Monocytes Percent Auto 7.8 % (2.0-11.0); Neutrophils Absolute Auto 1.93 K/mm3 (1.70-7.20); Neutrophils Percent Auto 44.1 % (50.0-70.0); Platelet Count Result 159 K/mm3 (150-420); Red Blood Count 4.33 M/mm3 (4.20-5.40); Red Cell Distribution Width 15.9 % (11.6-14.4); White Blood Count 4.4 K/mm3 (4.8-10.8)
[2023-09-02 07:10] LABS: Ferritin 140 ng/mL (8-252); Iron 40 ug/dL (50-170)
== END 2023-09-02 06:23 | disposition home or self-care (01) ==
PROVIDERS: Visit Provider Internal Medicine
DX: I10 Essential (primary) hypertension (principal); D64.9 Anemia, unspecified
CPT/HCPCS: 36415; 82728; 83540; 85025; 85055

== ENCOUNTER 2023-09-06 07:15 | Outpatient (NON) | payer MEDICARE, SELFPAY ==
[2023-09-06 07:54] LABS: Anion Gap 4 mmol/L (4-12); Blood Urea Nitrogen 14 mg/dL (7-18); Calcium 8.6 mg/dL (8.5-10.1); Carbon Dioxide 31 mmol/L (21-32); Chloride 107 mmol/L (98-108); Estimated Glomerular Filt Rate > 60; Glucose 85 mg/dL (70-99); NT Pro B Type Natriuretic Pept 766 pg/mL (0-450); Osmolality Calculated 293 mOsm/kg (285-295); Potassium 3.8 mmol/L (3.5-5.1); Sodium 142 mmol/L (136-145)
== END 2023-09-06 07:16 | disposition home or self-care (01) ==
PROVIDERS: Visit Provider Internal Medicine
DX: I10 Essential (primary) hypertension (principal); I50.9 Heart failure, unspecified; E11.9 Type 2 diabetes mellitus without complications
CPT/HCPCS: 36415; 80048; 83880

== ENCOUNTER 2024-01-02 13:44 | Outpatient (CLI) | payer MEDICARE, BC, SELFPAY ==
--- NOTE | ~2024-01-02 | XR_ITS ---
EXAMINATION: XR chest 2V DATE: 01/02/2024 14:46 INDICATION: Cough. Wheezing. Fever. TECHNIQUE: Frontal and lateral views of the chest were obtained. COMPARISON: Chest 2 views 03/01/2023 FINDINGS: There are small pleural effusions. There are airspace opacities at the lung bases. No pneum othorax. Cardiomegaly is noted. IMPRESSION: 1. Small pleural effusions. 2. Airspace opacities at the lung bases, consistent with atelectasis versus pneumonia. 3. Cardiomegaly. Reviewed, dictated and finalized at location A. IMPRESSION: 1. Small pleural effusions. 2. Airspace opacities at the lung bases, consistent with atelectasis versus pne umonia. 3. Cardiomegaly.
[2024-01-02 14:00] LABS: Hematocrit 40.7 % (35.0-42.0); Hemoglobin 12.8 g/dL (11.7-13.8); Mean Corpuscular HGB Conc 31.4 g/dL (32-36); Mean Corpuscular Hemoglobin 28.1 pg (27.0-31.0); Mean Corpuscular Volume 89.3 fL (78.0-102.0); Mean Platelet Volume 10.6 fl (9.2-11.8); Platelet Count Result 287 K/mm3 (150-420); Red Blood Count 4.56 M/mm3 (4.20-5.40); Red Cell Distribution Width 15.7 % (11.6-14.4); White Blood Count 9.3 K/mm3 (4.8-10.8)
--- NOTE | 2024-01-02 14:13 | ECG_ITS ---
Test Date: 2024-01-02 14:38:25 Measurements Intervals Preemption Rate: 52 P: 0 LA: 0 QRS: 70 QRSD: 84 T: 86 QT: 447 QTc: 418 Interpretive Statements ATRIAL FIBRILLATION WITH SLOW VENTRICULAR RESPONSE WITH ABERRANT CONDUCTION OR VENTRICULAR PREMATURE COMPLEXES NONSPECIFIC ST & T-WAVE ABNORMALITY ABNORMAL RHYTHM ECG No previous ECG available for comparison Electronically Signed On 01-02-2024 15:23:08 CDT by Rajiv Fairchild M.D.
[2024-01-02 14:23] LABS: Alanine Aminotransferase 14 U/L (14-59); Albumin Level 3.1 g/dL (3.4-5.0); Alkaline Phosphatase 85 U/L (46-116); Anion Gap 3 mmol/L (4-12); Aspartate Amino Transferase 11 U/L (15-37); Bilirubin,Total 0.6 mg/dL (0.00-1.00); Blood Urea Nitrogen 10 mg/dL (7-18); Calcium 8.7 mg/dL (8.5-10.1); Carbon Dioxide 31 mmol/L (21-32); Chloride 103 mmol/L (98-108); Estimated Glomerular Filt Rate 45; Glucose 167 mg/dL (70-99); NT Pro B Type Natriuretic Pept 7564 pg/mL (0-450); Osmolality Calculated 287 mOsm/kg (285-295); Potassium 4.4 mmol/L (3.5-5.1); Sodium 137 mmol/L (136-145); Total Protein 6.5 g/dL (6.4-8.2)
[2024-01-02 14:36] LABS: Influenza A QL RT-PCR Negative (Negative); Influenza B QL RT-PCR Negative (Negative); RSV RNA, RT-PCR Negative (Negative); SARS-CoV-2 RNA PCR Negative (Negative)
== END 2024-01-02 13:45 | disposition home or self-care (01) ==
LOC: CHSLAB 13:47
PROVIDERS: PCP Internal Medicine; Visit Provider Internal Medicine
DX: R05.9 Cough, unspecified (principal); R06.2 Wheezing; R50.9 Fever, unspecified; R06.02 Shortness of breath; J90 Pleural effusion, not elsewhere classified; R91.8 Other nonspecific abnormal finding of lung field; I51.7 Cardiomegaly; I48.91 Unspecified atrial fibrillation; R94.31 Abnormal electrocardiogram [ECG] [EKG]
CPT/HCPCS: 36415; 71046; 80053; 83880; 85027; 87086; 87637; 93005

== ENCOUNTER 2024-01-02 16:10 | Emergency (ER) | payer MEDICARE, BC, SELFPAY ==
[2024-01-02] VITALS (8 sets, daily range): BP systolic 139–231; BP diastolic 73–113; PULSE 45–75; RESP 16–25; TEMP 36.2; O2SAT 96–99
--- NOTE | 2024-01-02 16:12 | ECG_ITS ---
Test Date: 2024-01-02 16:27:51 Measurements Intervals [place] Rate: 47 P: 0 IA: 0 QRS: 77 QRSD: 86 T: 92 QT: 463 QTc: 411 Interpretive Statements ATRIAL FIBRILLATION WITH SLOW VENTRICULAR RESPONSE NONSPECIFIC ST & T-WAVE ABNORMALITY ABNORMAL RHYTHM ECG Compared to ECG 01/02/2024 14:38:25 PVC IS NOT DEMONSTRATED OTHERWISE NO SIGNIFICANT CHANGE Electronically Signed On 01-03-2024 09:46:28 CDT by Rajiv Fairchild M.D.
--- NOTE | 2024-01-02 16:14 | ED.GENADULT ---
HPI - General Adult General Chief complaint: Shortness of Breath/Dyspnea Stated complaint: SOB, New onset AFIB Time Seen by Provider: 01/02/24 16:13 Source: patient and EMS Mode of arrival: EMS Limitations: altered mental status History of Present Illness HPI narrative: 83 years old white female came from residential with shortness of breath general body aches and feeling hungry. Patient is poor historian, awake, oriented to her name age and name of the president. Patient deny any fever or chills or vomiting. Patient is DNR. Related Data Home Medications Medication Instructions Recorded Confirmed allopurinol 100 mg tablet 100 mg PO BID 11/25/20 01/02/24 duloxetine 30 mg capsule,delayed 30 mg PO DAILY 11/25/20 01/02/24 release insulin aspart U-100 100 unit/mL 4 unit subcut 1200,1700 11/25/20 01/02/24 (3 mL) subcutaneous pen (Novolog FlexPen U-100 Insulin aspart) levothyroxine 50 mcg tablet 50 mcg PO DAILY 11/25/20 01/02/24 insulin aspart U-100 100 unit/mL 4 unit subcut 0800 06/28/21 01/02/24 (3 mL) subcutaneous pen (Novolog FlexPen U-100 Insulin aspart) atorvastatin 20 mg tablet 20 mg PO DAILY 07/23/21 01/02/24 pantoprazole 40 mg tablet,delayed 40 mg PO BID 07/23/21 01/02/24 release lisinopril 20 mg tablet 40 mg PO DAILY 02/04/22 01/02/24 carvedilol 6.25 mg tablet 6.25 mg PO BID 02/28/23 01/02/24 hydralazine 50 mg tablet 25 mg PO BID 02/28/23 01/02/24 insulin glargine-yfgn 100 unit/mL 25 unit subcut DAILY 02/28/23 01/02/24 (3 mL) subcutaneous pen sennosides 8.6 mg capsule 8.6 mg PO BID 02/28/23 01/02/24 potassium chloride 10 mEq 20 meq PO DAILY 01/02/24 01/02/24 tablet,extended release torsemide 10 mg tablet 10 mg PO QAM 01/02/24 01/02/24 Allergies Allergy/AdvReac Type Severity Reaction Status Date / Time Sulfa (Sulfonamide Allergy Itching Verified 01/02/24 16:12 Antibiotics) Review of Systems Review of Systems: ROS unobtainable: Yes unobtainable due to mental status PMFSH Past Medical History Medical History Acute blood loss anemia Anemia Asthma Cervical cancer CHF (congestive heart failure) EF 55-60% Diabetes mellitus GI bleed Gout HTN (hypertension) Hypothyroid Melena Ovarian mass Surgical History Surgical History History of bilateral knee replacement History of cholecystectomy History of total abdominal hysterectomy Family History Family History Father ETOH abuse Mother ETOH abuse Sibling ETOH abuse Grandparent Diabetes mellitus Sibling COPD (chronic obstructive pulmonary disease) Social History Social History Smoking status: Never smoker Second hand tobacco smoke exposure: No Alcohol intake: former Substance use: never Substance use type: does not use Lack of Transportation: No Lack of Food: Never True Current Housing: I Have Housing Concerned About Future Housing: No Difficulty Paying Gas/Electric Bills: No Difficulty Paying for Meds: No Currently Unemployed: No Education: High School Diploma/GED Difficulty w/ Childcare or Family Care: No Living arrangements: with friend(s) Gender identity (if verbalized by the patient): Female Spiritual care concerns: No Exam Narrative: General appearance: Well-developed, well-nourished Skin: Normal color Head: Normocephalic, nontraumatic Eyes: Clear conjunctiva ENT: Oropharynx normal, ears normal, nose normal Neck: Supple, nontender Chest and respiratory: Airway patent, Mild respiratory distress, basilar rales bilaterally Heart: Regular rate/rhythm Abdomen: Soft, nontender, no organomegaly, quiet bowel sounds Vascular: Normal peripheral pulses, normal capillary refill. Musculoskeletal: Normal range of motion, nontender back Neurologic: Alert and oriented ?3, COTTRELL BLOWER
[2024-01-02 16:31] LABS: Basophils Absolute Auto 0.07 K/mm3 (0.00-0.10); Basophils Percent Auto 0.7 % (0.0-1.0); Eosinophils Absolute Auto 0.14 K/mm3 (0.02-0.50); Eosinophils Percent Auto 1.5 % (1.0-6.0); Hematocrit 40.7 % (35.0-42.0); Hemoglobin 12.8 g/dL (11.7-13.8); Immature Granulocyte Absolute 0.03 K/mm3 (0.00-0.00); Immature Granulocyte Percent A 0.3 % (0.0-0.0); Lymphocytes Absolute Auto 2.37 K/mm3 (1.10-4.50); Lymphocytes Percent Auto 24.9 % (18.0-42.0); Mean Corpuscular HGB Conc 31.4 g/dL (32-36); Mean Corpuscular Hemoglobin 27.8 pg (27.0-31.0); Mean Corpuscular Volume 88.5 fL (78.0-102.0); Mean Platelet Volume 10.9 fl (9.2-11.8); Monocytes Absolute Auto 0.75 K/mm3 (0.10-0.90); Monocytes Percent Auto 7.9 % (2.0-11.0); Neutrophils Absolute Auto 6.14 K/mm3 (1.70-7.20); Neutrophils Percent Auto 64.7 % (50.0-70.0); Platelet Count Result 302 K/mm3 (150-420); Red Cell Distribution Width 15.7 % (11.6-14.4); White Blood Count 9.5 K/mm3 (4.8-10.8)
--- NOTE | 2024-01-02 16:35 | PC.NURSE ---
ROULA HAS SPOKEN WITH NIESHA THOMAS, REPORTS SHE IS COMFORT CARE ONLY AND IF PT IS UNABLE TO MAKE A DECISION ON HER TREATMENT PLAN, NIESHA WILL MAKE DECISIONS NEEDED.
[2024-01-02 16:50] LABS: INR 1.1; Partial Thromboplastin Time 28.6 Sec (23.9-30.70); Prothrombin Time 12.1 Seconds (9.50-12.1)
[2024-01-02 16:53] LABS: Alanine Aminotransferase 13 U/L (14-59); Albumin Level 3.1 g/dL (3.4-5.0); Alkaline Phosphatase 90 U/L (46-116); Anion Gap 7 mmol/L (4-12); Aspartate Amino Transferase 10 U/L (15-37); Bilirubin,Total 0.5 mg/dL (0.00-1.00); Blood Urea Nitrogen 11 mg/dL (7-18); Calcium 8.8 mg/dL (8.5-10.1); Carbon Dioxide 29 mmol/L (21-32); Chloride 102 mmol/L (98-108); Estimated Glomerular Filt Rate 51; Glucose 126 mg/dL (70-99); NT Pro B Type Natriuretic Pept 7475 pg/mL (0-450); Osmolality Calculated 287 mOsm/kg (285-295); Potassium 4.2 mmol/L (3.5-5.1); Sodium 138 mmol/L (136-145); Total Protein 6.7 g/dL (6.4-8.2); Troponin I 19.6 ng/L (0.00-60.4)
[2024-01-02] MEDS: ENOXAPARIN 100 MG/ML SYRINGE SUB-Q (17:05)
[2024-01-02] MEDS: FUROSEMIDE INJ 40 MG/4 ML VIAL 60 MG IV PUSH (17:05)
[2024-01-02 17:10] LABS: Add Urine Microscopic? YES; Bilirubin Urine Negative (Negative); Blood Urine Negative (Negative); Color Urine Light Yellow (Yellow); Glucose Urine UA Negative (Negative); Ketones Urine Negative (Negative); Leukocyte Esterase Ur 1+ LEU/UL (Negative); Nitrate Urine Negative (Negative); Protein Urine 1+ (Negative); Specific Grav Ur 1.025 (1.010-1.020); Urobilinogen Urine 0.2 mg/dL (0.2-1.0)
--- NOTE | 2024-01-02 17:11 | PC.NURSE ---
PT IS UPSET, REPORTS SHE DOES NOT WANT ANY OTHER STICKS OR TESTING DONE. PT STATES NO MORE , IS CRYING WITH THE BP CUFF AND MEDICATION ADMINISTRATION. YOU GUYS ARE TRYING TO KILL ME. PT IS CONFUSED TO WHY SHE IS HERE AND WHAT WE ARE DOING. PT REPORTS I DON'T WANT ANY MORE TESTING. PT IS AWAITING RESULTS AT THIS TIME. WILL CONTINUE TO MONITOR.
[2024-01-02 17:14] LABS: Appearance Urine Cloudy (Clear)
[2024-01-02 17:15] LABS: Bacteria Urine 2+ /hpf; RBC Urine None seen /hpf (0-2); Squamous Epithelial Cell Urine Few /hpf (Few)
--- NOTE | 2024-01-02 17:47 | PC.NURSE ---
ROULA SPOKE WITH PT ABOUT BEING ADMITTED, PT IS REFUSING ADMISSION, IS A&OX3. SPOKE WITH WILLIAM WHO IS POA AND SHE IS IN AGREEMENT WITH SENDING PT BACK TO [facility], REPORTS SHE IS A DNR WITH NO CODE STATUS AND FOR THE HOME NOT TO SEND PT BACK TO ER, IF SOMETHING HAPPENS THEY ARE TO NOTIFY HER FIRST. SPOKE WITH JOSE ANGEL AT [facility], SHE IS AWARE AND STAFF EN ROUTE TO TRANSPORT PT BACK TO REHAB.
--- NOTE | 2024-01-02 18:08 | PC.NURSE ---
PT ASSISTED TO RR X 3 DURING ED VISIT. PT REFUSED ANY MORE BP READINGS OR FURTHER TREATMENT. ME STAFF TRANSPORTED PT BACK TO ME.
--- NOTE | 2024-01-04 18:31 | PC.NURSE ---
FINAL URINE CULTURE REPORT: POSITIVE FOR ESCHERICHIA COLI; RN SPOKE WITH STAFF AT [facility], PRESCRIPTION FOR MACROBID SENT TO [facility] PER FACILITY REQUEST.
--- NOTE | 2024-01-08 12:27 | PC.NURSE ---
Final blood culture report, no growth after 5 days, no further action or treatment needed at this time.
== END 2024-01-02 18:07 ==
PROVIDERS: Emergency Provider Emergency Medicine; PCP Internal Medicine
DX: I11.0 Hypertensive heart disease with heart failure (principal); I50.9 Heart failure, unspecified; I48.91 Unspecified atrial fibrillation; E03.9 Hypothyroidism, unspecified; Z85.41 Personal history of malignant neoplasm of cervix uteri; Z79.4 Long term (current) use of insulin
CPT/HCPCS: 36415; 71046; 80053; 81001; 83880; 84484; 85025; 85027; 85610; 85730; 87040; 87077; 87086; 87088; 87186; 87637; 93005; 96372; 96374; 99284; J1650; J1940

== ENCOUNTER 2024-02-29 17:45 | Outpatient (NON) | payer MEDICARE, BC, SELFPAY ==
[2024-02-29 18:02] LABS: Add Urine Microscopic? NO; Appearance Urine Clear (Clear); Bilirubin Urine Negative (Negative); Blood Urine Negative (Negative); Color Urine Light Yellow (Yellow); Glucose Urine UA Negative (Negative); Ketones Urine Negative (Negative); Leukocyte Esterase Ur Negative LEU/UL (Negative); Nitrate Urine Negative (Negative); Protein Urine Negative (Negative); Urobilinogen Urine 0.2 mg/dL (0.2-1.0)
== END 2024-02-29 17:46 | disposition home or self-care (01) ==
LOC: CHSLAB 17:48
PROVIDERS: Visit Provider Internal Medicine
DX: D64.9 Anemia, unspecified (principal); N39.0 Urinary tract infection, site not specified
CPT/HCPCS: 81003

== ENCOUNTER 2024-03-26 21:48 | Outpatient (NON) | payer MEDICARE, SELFPAY ==
[2024-03-26 22:07] LABS: Add Urine Microscopic? YES; Appearance Urine Clear (Clear); Bilirubin Urine Negative (Negative); Blood Urine Negative (Negative); Color Urine Light Yellow (Yellow); Glucose Urine UA Negative (Negative); Ketones Urine Negative (Negative); Leukocyte Esterase Ur Trace LEU/UL (Negative); Nitrate Urine Negative (Negative); Protein Urine Negative (Negative); Specific Grav Ur 1.015 (1.010-1.020); Urobilinogen Urine 0.2 mg/dL (0.2-1.0); pH Urine 5.5 (5.0-8.0)
[2024-03-26 22:15] LABS: Bacteria Urine Trace /hpf; RBC Urine 0-2 /hpf (0-2); Squamous Epithelial Cell Urine Few /hpf (Few); WBC Urine 0-3 /hpf (0-3)
== END 2024-03-26 21:49 | disposition home or self-care (01) ==
LOC: CHSLAB 21:49
PROVIDERS: PCP Internal Medicine; Visit Provider Family Medicine
DX: N39.0 Urinary tract infection, site not specified (principal)
CPT/HCPCS: 81001

== ENCOUNTER 2024-06-12 07:43 | Emergency (ER) | payer MEDICARE, BC, SELFPAY ==
--- NOTE | ~2024-06-12 | XR_ITS ---
EXAMINATION: XR knee RT 3V, XR knee LT 3V DATE: 06/12/2024 08:46 INDICATION: Bilateral knee pain post fall TECHNIQUE: 1. Anteroposterior, oblique and crosstable lateral views of the right knee were obtained. 2. Anteroposterior, oblique and crosstable lateral views of the left knee were obtained. COMPARISON: None. FINDINGS: There are bilateral total knee arthroplasties with patellar resurfacing both of which appear [place] jim[place] in near-anatomic alignment. No periprosthetic lucency to suggest loosening or infection. No fract ure. Small enthesophytes at the proximal poles of the patellae. Soft tissues are unremarkable with no knee joint effusions. IMPRESSION: 1. Expected appearance of bilateral total knee arthroplasties. No knee joint effusions or acute osseo us abnormality. Reviewed, dictated and finalized at location A. RMEDIATE TEACHER IMPRESSION: 1. Expected appearance of bilateral total knee arthroplasties. No knee joint ef fusions or acute osseous abnormality.
[2024-06-12 07:43] VITALS: BP 188/75; RESP 18; TEMP 35.9; O2SAT 97
[2024-06-12 08:15] VITALS: PULSE 53; RESP 18; O2SAT 95
[2024-06-12 08:16] VITALS: BP 197/84; O2SAT 98
[2024-06-12 08:16] LABS: Add Urine Microscopic? YES; Appearance Urine Sl Cloudy (Clear); Bilirubin Urine Negative (Negative); Blood Urine Negative (Negative); Color Urine Light Yellow (Yellow); Glucose Urine UA Negative (Negative); Ketones Urine Negative (Negative); Leukocyte Esterase Ur 2+ LEU/UL (Negative); Nitrate Urine Negative (Negative); Protein Urine Trace (Negative); Specific Grav Ur <= 1.005 (1.010-1.020); Urobilinogen Urine 0.2 mg/dL (0.2-1.0)
[2024-06-12 08:20] LABS: Bacteria Urine 1+ /hpf; RBC Urine None seen /hpf (0-2); Squamous Epithelial Cell Urine Moderate /hpf (Few); WBC Urine 16-20 /hpf (0-3)
[2024-06-12 08:43] VITALS: O2SAT 97
[2024-06-12 08:45] VITALS: O2SAT 96
[2024-06-12] MEDS: ACETAMINOPHEN 325 MG TABLET 650 MG PO (08:55)
[2024-06-12] MEDS: NITROFURANTOIN MONOHYD MACROCR 100 MG CAP PO (08:55)
[2024-06-12 09:00] VITALS: BP 221/83; PULSE 56; RESP 18; O2SAT 98
--- NOTE | 2024-06-12 09:04 | ED.FALL ---
HPI - Fall General Chief Complaint: Fall Stated Complaint: fall Time Seen by Provider: 06/12/24 07:53 Source: patient Mode of arrival: wheelchair Limitations: physical limitation History of Present Illness HPI Narrative: this is an 84-year-old senior living patient presents from the senior living with some frequent falls over the last couple days and last fall while using her walker onto her knees causing pain in the anterior portion of her bilateral knees patient does use a walker to ambulate. Patient is a hospice patient currently with no chest pain no shortness of breath no nausea vomiting no abdominal pain no flank pain no fever chills. complaint: fall Onset (ago): day(s) Fall from: standing Fall witnessed: yes, by living facility staff Related Data Home Medications ?Medication ?Instructions ?Recorded ?Confirmed ?Last Taken ?Type allopurinol 100 mg tablet 100 mg PO BID 11/25/20 01/02/24 07/25/21 History duloxetine 30 mg capsule,delayed 30 mg PO DAILY 11/25/20 01/02/24 07/25/21 History release levothyroxine 50 mcg tablet 50 mcg PO DAILY 11/25/20 01/02/24 07/25/21 History lisinopril 20 mg tablet 40 mg PO DAILY 02/04/22 01/02/24 Unknown History sennosides 8.6 mg capsule 8.6 mg PO BID 02/28/23 01/02/24 Unknown History potassium chloride 10 mEq 20 meq PO DAILY 01/02/24 01/02/24 Unknown History tablet,extended release torsemide 10 mg tablet 10 mg PO QAM 01/02/24 01/02/24 Unknown History acetaminophen 500 mg tablet 500 mg PO Q4H PRN pain 06/12/24 Unknown History (Acetaminophen Extra Strength) lorazepam 0.5 mg tablet (Ativan) 0.5 mg PO Q4H PRN anxiety 06/12/24 Unknown History morphine concentrate 20 mg/mL oral 5 mg sublingual Q4H PRN pain 06/12/24 Unknown History syringe (FOR ORAL USE ONLY) omeprazole 40 mg capsule,delayed 40 mg PO DAILY 06/12/24 Unknown History release Allergies Allergy/AdvReac Type Severity Reaction Status Date / Time Sulfa (Sulfonamide Allergy Itching Verified 06/12/24 08:26 Antibiotics) Review of Systems Review of Systems: All systems reviewed & are unremarkable except as noted in HPI and below PMFSH Past Medical History Medical History Ovarian mass Acute blood loss anemia Melena GI bleed Anemia Hypothyroid Gout CHF (congestive heart failure) EF 55-60% Cervical cancer Diabetes mellitus HTN (hypertension) Asthma Surgical History Surgical History History of cholecystectomy History of bilateral knee replacement History of total abdominal hysterectomy Family History Family History Father ETOH abuse Mother ETOH abuse Sibling ETOH abuse Grandparent Diabetes mellitus Sibling COPD (chronic obstructive pulmonary disease) Social History Social History Smoking status: Never smoker Second hand tobacco smoke exposure: No Alcohol intake: former Substance use: never Substance use type: does not use Lack of Transportation: No Lack of Food: Never True Current Housing: I Have Housing Concerned About Future Housing: No Difficulty Paying Gas/Electric Bills: No Difficulty Paying for Meds: No Currently Unemployed: No Education: High School Diploma/GED Difficulty w/ Childcare or Family Care: No Living arrangements: with friend(s) Gender identity (if verbalized by the patient): Female Spiritual care concerns: No Exam Const: General: no acute distress Nutritional Appearance: well nourished Limitations: physical limitations Eyes: Conjunctivae: conjunctivae normal Neck: Neck: normal visual inspection, no lymphadenopathy and no meningeal signs Chest: Chest palpation & inspection: normal inspection of the chest Resp: Effort & Inspection: normal respiratory effort Auscultation: clear to auscultation bilaterally Cardio: Rate: regular rate Rhythm: regular rhythm GI: Auscultation: normal bowel sounds : General: Yes bladder normal to palpation Urinary Catheter: Urinary Catheter: patent and draining Back/Spine/Pelvis: Back: no CVA tenderness Skin: General skin exam: normal color Rashes: no rashes Wounds: no wounds Neuro: General: patient oriented x3, moves all extremities and no meningeal signs Extrem: Other: Tender bilateral knees with palpation Course Course Emergency Course: patient had x-rays performed which showed no acute fractures, urinalysis shows a urinary tract infection and dose of Macrobid was administered in the emergency department. Vital Signs Vital signs: Vital Signs Temperature 35.9 C L 01/25/25 07:43 Respiratory Rate 18 06/12/24 07:43 Blood Pressure 188/75 H 06/12/24 07:43 Pulse Oximetry 97 06/12/24 07:43 Oxygen Delivery Room Air 06/12/24 07:43 Temperature 35.9 C L 06/12/24 07:43 Respiratory Rate 18 06/12/24 07:43 Blood Pressure 188/75 H 06/12/24 07:43 Pulse Oximetry 97 06/12/24 07:43 Oxygen Delivery Room Air 06/12/24 07:43 MDM - Fall Lab Data Labs: Lab Results 06/12/24 Range/Units 07:55 Urine Color Light yellow (Yellow) Urine Appearance Sl cloudy A (Clear) Urine pH 6.0 (5.0-8.0) Ur Specific [place] <= 1.005 L (1.010-1.020) Urine Protein Trace H (Negative) Urine Glucose (UA) Negative (Negative) Urine Ketones Negative (Negative) Ur Blood (Man) Negative (Negative) Urine Nitrate Negative (Negative) Urine Bilirubin Negative (Negative) Urine Urobilinogen 0.2 (0.2-1.0) mg/dL Leukocyte Esterase Rfl 2+ H (Negative) GARY/UL Urine RBC None seen (0-2) /hpf Urine WBC 16-20 H (0-3) /hpf Ur Squamous Epith Cells Moderate H (Few) /hpf Urine Bacteria 1+ H (None) /hpf Critical Care Time Critical Care Time Critical Care Time: No Discharge Plan Discharge Clinical Impression: Falls Knee strain Qualifiers: Encounter type: initial encounter Laterality: bilateral Qualified Code(s): S86.911A - Strain of unspecified muscle(s) and tendon(s) at lower leg level, right leg, initial encounter UTI (urinary tract infection) Qualifiers: Urinary tract infection type: acute cystitis Hematuria presence: without hematuria Qualified Code(s): N30.00 - Acute cystitis without hematuria Patient Disposition: NH [facility]/Asst Living Condition: Stable Instructions: Antibiotic Form, Urinary Tract Infection in Women (ED), Knee Pain (ED), Fall Prevention (ED) Additional Instructions: advised to take medication as prescribed, and can use Tylenol as needed for pain and use fall precautions. Patient Language: Citizen Of [place] Prescriptions: New nitrofurantoin monohyd/m-cryst [Macrobid] 100 mg capsule 100 mg PO Q12H 7 Days Qty: 14 0RF Rx Instructions: must administer with a meal/food No Action lisinopril 20 mg tablet 40 mg PO DAILY sennosides 8.6 mg Capsule 8.6 mg PO BID atropine 1 % Drops 2 drp RIGHT EYE TID Qty: 0 0RF torsemide 10 mg Tablet 10 mg PO QAM potassium chloride 10 mEq tablet extended release 20 meq PO DAILY lorazepam [Ativan] 0.5 mg tablet 0.5 mg PO Q4H PRN (Reason: anxiety) morphine concentrate 20 mg/mL syringe 5 mg sublingual Q4H PRN (Reason: pain) omeprazole 40 mg capsule,delayed release(DR/EC) 40 mg PO DAILY acetaminophen [Acetaminophen Extra Strength] 500 mg tablet 500 mg PO Q4H PRN (Reason: pain) allopurinol 100 mg tablet 100 mg PO BID levothyroxine 50 mcg tablet 50 mcg PO DAILY duloxetine 30 mg capsule,delayed release(DR/EC) 30 mg PO DAILY Rx Instructions: 30mg [id number], 20mg sun polyethylene glycol 3350 [Miralax] 17 gram Powder In Packet 17 g PO QAM PRN (Reason: Constipation) Qty: 14 0RF Follow-up/Referrals: Pam Bonner MD [Primary Care Provider] - Time of Disposition: 09:09
--- NOTE | 2024-06-14 13:06 | PC.NURSE ---
FINAL URINE CULTURE MIXED GENITAL MICHAEL ISOLATED PER DR MUNGUIA NO FUTHER ACTION REQUIRED
== END 2024-06-12 09:18 ==
PROVIDERS: Emergency Provider Emergency Medicine; PCP Internal Medicine
DX: S86.911A Strain of unspecified muscle(s) and tendon(s) at lower leg level, right leg, initial encounter (principal); N30.00 Acute cystitis without hematuria; E03.9 Hypothyroidism, unspecified; I10 Essential (primary) hypertension; E11.9 Type 2 diabetes mellitus without complications; Z79.899 Other long term (current) drug therapy; Z85.41 Personal history of malignant neoplasm of cervix uteri; W19.XXXA Unspecified fall, initial encounter
CPT/HCPCS: 73562; 81001; 87086; 99284; A9270

== ENCOUNTER 2024-08-10 17:45 | Outpatient (NON) | payer MEDICARE, SELFPAY ==
[2024-08-10 19:51] LABS: Add Urine Microscopic? NO; Appearance Urine Clear (Clear); Bilirubin Urine Negative (Negative); Blood Urine Negative (Negative); Color Urine Light Yellow (Yellow); Glucose Urine UA Negative (Negative); Ketones Urine Negative (Negative); Leukocyte Esterase Ur Negative LEU/UL (Negative); Nitrate Urine Negative (Negative); Protein Urine Negative (Negative); Specific Grav Ur 1.015 (1.010-1.020); Urobilinogen Urine 0.2 mg/dL (0.2-1.0); pH Urine 5.5 (5.0-8.0)
== END 2024-08-10 17:46 | disposition home or self-care (01) ==
LOC: CHSLAB 17:53
PROVIDERS: PCP Internal Medicine; Visit Provider Family Medicine
DX: N39.0 Urinary tract infection, site not specified (principal)
CPT/HCPCS: 81003

== ENCOUNTER 2024-10-16 19:57 | Emergency (ER) | payer MEDICARE, BC, MEDICAID, SELFPAY ==
[2024-10-16] VITALS (7 sets, daily range): BP systolic 202–225; BP diastolic 65–105; PULSE 47–57; RESP 16; TEMP 36.4; O2SAT 94–96
--- NOTE | ~2024-10-16 | CT_ITS ---
CT cervical spine wo con Ordering provider: Rajiv Mayo MD History: . FALL. HIT HEAD ON GROUND. NECK PAIN. . Comparison: May 17, 2022 Technique: CT of the cervical spine was performed without contrast. Sagittal and coronal reformatted images were also obtained and reviewed. Automated exposure control and iterative reconstruction brad hnique were employed. The dose-length product was 298.07 mGy-cm. FINDINGS: VERTEBRAE: No subluxation or acute fracture. The occipital condyles are intact. Degenerative changes of the spine. Small bony fragment seen adjacent to the spinous process of T1 whi ch is most likely chronic. Clinical evaluation for tenderness in the area advised. DISC SPACES: Normal. Evaluation of the neural foramina degenerative disc disease of the level of C5- C6 and C6-C7. Multilevel facet joint disease. Multilevel uncovertebral joint osteoarthritic changes. Multilevel intervertebral foraminal narrowing. PARASPINOUS SOFT TISSUES: Bilateral carotid calcifications. Right pleural effusion. IMPRESSION: No acute osseous abnormality cervical spine. Multilevel degenerative disc disease. Right pleural effusion. Reviewed, dictated and finalized at location A.
--- NOTE | ~2024-10-16 | CT_ITS ---
CT brain wo con Ordering provider: Rajiv Mayo MD History: 84 years Female with . FALL. HIT POSTERIOR HEAD ON GROUND. . Comparison: June 18, 2022 Technique: CT of the head without contrast. Radiation reduction technique utilized.The dose-length pr oduct was 681 mGy-cm. FINDINGS: BRAIN PARENCHYMA AND CSF SPACES: Mild leukoaraiosis and diffuse cortical atrophy. Mild atheromatous d isease. Hypodensity seen in the left anterior temporal lobe unchanged from previous examination. Old lacunar infarct seen in the right basal ganglia and left insula. No midline shift, mass effect or hem orrhage. The brain parenchyma and CSF spaces are otherwise normal. VISUALIZED PARANASAL SINUSES: Well aerated. MASTOIDS: Well aerated. BONES: The bones appear intact. SOFT TISSUES: Visualized nasopharynx is normal. Scalp hematoma seen in the occipital area. Otherwise , Superficial soft tissues are normal. Calcification in the right eye globe is demonstrated with a small size. Clinical evaluation advised. . IMPRESSION: No acute intracranial findings. Reviewed, dictated and finalized at location A.
--- NOTE | 2024-10-16 21:09 | PC.NURSE ---
PATIENT RESTING ON STRETCHER. C COLLAR IN PLACE. DENIES ANY NEEDS AT THIS TIME. CALL LIGHT IN REACH.
--- NOTE | 2024-10-16 21:58 | PC.NURSE ---
FOUND PATIENT UP AND WALKING IN THE ROOM. STATES SHE NEEDED TO SEE WHAT THE NOISE WAS. PATIENT HAS REMOVED C COLLAR. PATIENT AMBULATED BACK TO THE STRETCHER. COVERED BACK UP WITH BLANKETS
--- NOTE | 2024-10-16 22:24 | ED.FALL ---
HPI - Fall General Chief Complaint: Fall Stated Complaint: Fall Time Seen by Provider: 10/16/24 20:09 Source: patient and EMS Mode of arrival: ambulatory Limitations: no limitations History of Present Illness HPI Narrative: this is a an 84-year-old female presents from the longterm via EMS after she had a fall hitting the back of her head has a contusion with no bleeding no loss of consciousness no neck pain no other injuries noted has good range of motion in her lower extremities and upper extremities with no bruising no headache no nausea vomiting no chest pain or abdominal pain. Onset (ago): hour(s) Fall from: standing Related Data Home Medications ?Medication ?Instructions ?Recorded ?Confirmed ?Last Taken ?Type allopurinol 100 mg tablet 100 mg PO BID 11/25/20 01/02/24 07/25/21 History duloxetine 30 mg capsule,delayed 30 mg PO DAILY 11/25/20 01/02/24 07/25/21 History release levothyroxine 50 mcg tablet 50 mcg PO DAILY 11/25/20 01/02/24 07/25/21 History lisinopril 20 mg tablet 40 mg PO DAILY 02/04/22 01/02/24 Unknown History sennosides 8.6 mg capsule 8.6 mg PO BID 02/28/23 01/02/24 Unknown History potassium chloride 10 mEq 20 meq PO DAILY 01/02/24 01/02/24 Unknown History tablet,extended release torsemide 10 mg tablet 10 mg PO QAM 01/02/24 01/02/24 Unknown History acetaminophen 500 mg tablet 500 mg PO Q4H PRN pain 06/12/24 Unknown History (Acetaminophen Extra Strength) lorazepam 0.5 mg tablet (Ativan) 0.5 mg PO Q4H PRN anxiety 06/12/24 Unknown History morphine concentrate 20 mg/mL oral 5 mg sublingual Q4H PRN pain 06/12/24 Unknown History syringe (FOR ORAL USE ONLY) omeprazole 40 mg capsule,delayed 40 mg PO DAILY 06/12/24 Unknown History release Allergies Allergy/AdvReac Type Severity Reaction Status Date / Time Sulfa (Sulfonamide Allergy Itching Verified 06/12/24 08:26 Antibiotics) Review of Systems Review of Systems: All systems reviewed & are unremarkable except as noted in HPI and below PMFSH Past Medical History Medical History Ovarian mass Acute blood loss anemia Melena GI bleed Anemia Hypothyroid Gout CHF (congestive heart failure) EF 55-60% Cervical cancer Diabetes mellitus HTN (hypertension) Asthma Surgical History Surgical History History of cholecystectomy History of bilateral knee replacement History of total abdominal hysterectomy Family History Family History Father ETOH abuse Mother ETOH abuse Sibling ETOH abuse Grandparent Diabetes mellitus Sibling COPD (chronic obstructive pulmonary disease) Social History Social History Smoking status: Never smoker Second hand tobacco smoke exposure: No Alcohol intake: former Substance use: never Substance use type: does not use Lack of Transportation: No Lack of Food: Never True Current Housing: I Have Housing Concerned About Future Housing: No Difficulty Paying Gas/Electric Bills: No Difficulty Paying for Meds: No Currently Unemployed: No Education: High School Diploma/GED Difficulty w/ Childcare or Family Care: No Living arrangements: with friend(s) Gender identity (if verbalized by the patient): Female Spiritual care concerns: No Exam Const: General: healthy appearing and no acute distress Nutritional Appearance: well nourished Orientation/consciousness: patient oriented x3 Limitations: no limitations HENMT: Head: normal to inspection Face and sinus: normal facial exam Mouth: Yes Normal oral and palatal mucosa present Eyes: Conjunctivae: conjunctivae normal Pupils: Equal, round and reactive pupils present EOM: EOMs intact bilaterally Neck: Neck: normal visual inspection Chest: Chest palpation & inspection: normal inspection of the chest Resp: Effort & Inspection: normal respiratory effort Auscultation: clear to auscultation bilaterally Cardio: Rate: regular rate Rhythm: regular rhythm GI: GI Palp: Yes Soft to palpation Auscultation: normal bowel sounds : General: Yes bladder normal to palpation Skin: General skin exam: normal color Rashes: no rashes Wounds: no wounds Neuro: General: patient oriented x3, moves all extremities, no meningeal signs and no focal motor deficits Extrem: General: normal to inspection, no clubbing, cyanosis or edema and no pedal edema Course Course Emergency Course: Patient had CT scan of the brain and cervical spine which showed no acute bony abnormalities patient has been walking around trying to get out of bed with no pain elicited does have a contusion occipital scalp with no bleeding. Vital Signs Vital signs: Vital Signs Temperature 36.4 C 10/16/24 20:02 Pulse Rate 47 L 10/16/24 20:02 Respiratory Rate 16 10/16/24 20:02 Blood Pressure 211/86 H 10/16/24 20:02 Pulse Oximetry 95 10/16/24 20:02 Oxygen Delivery Room Air 10/16/24 20:02 Temperature 36.4 C 10/16/24 20:02 Pulse Rate 57 L 10/16/24 21:46 Respiratory Rate 16 10/16/24 21:46 Blood Pressure 203/105 H 10/16/24 21:46 Pulse Oximetry 95 10/16/24 21:46 Oxygen Delivery Room Air 10/16/24 21:46 Critical Care Time Critical Care Time Critical Care Time: No Discharge Plan Discharge Clinical Impression: Fall, Contusion Patient Disposition: NH Group Home/Asst Living Condition: Stable Instructions: Antibiotic Form, Fall Prevention for Older Adults (ED), Head Injury (ED), Hematoma (ED) Additional Instructions: advised patient to follow primary care physician if symptoms persist or worsen. Patient Language: Nepalese Prescriptions: No Action lisinopril 20 mg tablet 40 mg PO DAILY sennosides 8.6 mg Capsule 8.6 mg PO BID atropine 1 % Drops 2 drp RIGHT EYE TID Qty: 0 0RF torsemide 10 mg Tablet 10 mg PO QAM potassium chloride 10 mEq tablet extended release 20 meq PO DAILY lorazepam [Ativan] 0.5 mg tablet 0.5 mg PO Q4H PRN (Reason: anxiety) morphine concentrate 20 mg/mL syringe 5 mg sublingual Q4H PRN (Reason: pain) omeprazole 40 mg capsule,delayed release(DR/EC) 40 mg PO DAILY acetaminophen [Acetaminophen Extra Strength] 500 mg tablet 500 mg PO Q4H PRN (Reason: pain) nitrofurantoin monohyd/m-cryst [Macrobid] 100 mg capsule 100 mg PO Q12H 7 Days Qty: 14 0RF Rx Instructions: must administer with a meal/food allopurinol 100 mg tablet 100 mg PO BID levothyroxine 50 mcg tablet 50 mcg PO DAILY duloxetine 30 mg capsule,delayed release(DR/EC) 30 mg PO DAILY Rx Instructions: 30mg [id number], 20mg sun polyethylene glycol 3350 [Miralax] 17 gram Powder In Packet 17 g PO QAM PRN (Reason: Constipation) Qty: 14 0RF Follow-up/Referrals: Pam Bonner MD [Primary Care Provider] - Stand Alone Forms: Care Home Discharge Time of Disposition: 22:29
--- NOTE | 2024-10-16 22:44 | PC.NURSE ---
REPORT GIVEN TO VENUS NURSE, AT [facility]. PATIENT IS WALKING AROUND. BED ALARM WAS PLACED ON STRETCHER TO ALERT STAFF IF PATIENT TRIES TO GET UP.
--- NOTE | 2024-10-16 22:54 | PC.NURSE ---
BRAXTON FROM [facility] IS HERE. DR PETER NOTIFIED OF CURRENT BLOOD PRESSURE
[2024-10-16] MEDS: cloNIDine HCL 0.2 MG TABLET PO (22:56)
== END 2024-10-16 23:13 ==
PROVIDERS: Emergency Provider Emergency Medicine; PCP Internal Medicine
DX: S00.93XA Contusion of unspecified part of head, initial encounter (principal); E03.9 Hypothyroidism, unspecified; I11.0 Hypertensive heart disease with heart failure; I50.9 Heart failure, unspecified; Z85.41 Personal history of malignant neoplasm of cervix uteri; E11.9 Type 2 diabetes mellitus without complications; W19.XXXA Unspecified fall, initial encounter
CPT/HCPCS: 70450; 72125; 99284; A9270

== ENCOUNTER 2024-11-12 09:56 | Emergency (ER) | payer MEDICARE, BC, SELFPAY ==
--- NOTE | ~2024-11-12 | XR_ITS ---
EXAMINATION: XR hip LT 2V w AP pelvis DATE: 11/12/2024 10:32 INDICATION: Left hip pain post fall TECHNIQUE: Anteroposterior view of the pelvis and anteroposterior and frog-leg lateral views of the l eft hip were obtained. COMPARISON: None. FINDINGS: Alignment is normal. No fracture. Moderate to severe osteoarthritis at the left hip and moderate oste oarthritis at the right hip and bilateral sacroiliac joints. Severe lumbar spondylosis. Soft tissues are unremarkable. IMPRESSION: 1. 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 Reviewed, dictated and finalized at location A. IMPRESSION: 1. 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
--- NOTE | ~2024-11-12 | XR_ITS ---
EXAMINATION: XR shoulder LT min 2V DATE: 11/12/2024 10:31 INDICATION: Left shoulder pain post fall TECHNIQUE: AP internally and externally rotated, AP oblique externally rotated and transscapular Y vi ews of the left shoulder were obtained. COMPARISON: None FINDINGS: Normal alignment. No fracture. Mild acromioclavicular osteoarthritis. Moderate glenohumeral osteoart hritis. Moderate to severe osteoarthritis at the facet joints at the left side of the mid to lower ce rvical spine. Visualized portion of the left lung are clear. Soft tissues are unremarkable. IMPRESSION: Mild left acromioclavicular and moderate glenohumeral osteoarthritis. No acute osseous abnormality. Reviewed, dictated and finalized at location A.
--- NOTE | ~2024-11-12 | CT_ITS ---
EXAMINATION: CT cervical spine wo con DATE: 11/12/2024 10:29 INDICATION: Fall TECHNIQUE: Computed tomography (CT) of the cervical spine was performed without intravenous contrast. Automated exposure control and iterative reconstruction technique were employed. The dose-length pro duct was 681.00 mGy-cm. COMPARISON: 10/16/2024 and 05/17/2022 FINDINGS: Bone alignment remains normal. Severe osteoarthritis at the atlantoaxial articulation. Vertebral body heights are normal. No fracture. Severe disc height loss at C5-C6 and C6-C7. Moderate disc height lo ss at C7-T1 and mild disc height loss at C3-C4 and C4-C5. Ossification along the posterior longitudin al ligament at the level of C5-C6 and C6-C7 contributing to mild central canal stenosis at these leve ls. There is multilevel moderate to severe cervical facet and uncovertebral osteoarthritis which cont ributes to moderate neural foraminal stenosis bilaterally at C3-C4, on the right at C4-C5 and C5-C6 a nd mild neural from stenosis at many of the remaining cervical neural foramina. Atherosclerotic calci fication is at the bilateral carotid bulbs. Cervical soft tissues are otherwise unremarkable. Mild bi apical pleural-parenchymal scarring. A couple unchanged small chronic noncalcified granulomata at the left apex, the larger measuring 3-4 mm. IMPRESSION: 1. Severe cervical spondylosis. No acute osseous abnormality. Reviewed, dictated and finalized at location A.
--- NOTE | ~2024-11-12 | CT_ITS ---
CT brain wo con Ordering provider: Austin Blanc MD History: 84 years Female with . fall . Comparison: None. Technique: CT of the head without contrast. Radiation reduction technique utilized.The dose-length pr oduct was 681 mGy-cm. FINDINGS: BRAIN PARENCHYMA AND CSF SPACES: Mild leukoaraiosis and diffuse cortical atrophy. Mild atheromatous d isease. No midline shift, mass effect or hemorrhage. The brain parenchyma and CSF spaces are otherwi se normal. VISUALIZED PARANASAL SINUSES: Well aerated. MASTOIDS: Well aerated. BONES: The bones appear intact. SOFT TISSUES: Visualized nasopharynx is normal. Superficial soft tissues are normal. Calcification with irregular right eye globe is noted. Clinical correlation advised. IMPRESSION: No acute intracranial findings. Reviewed, dictated and finalized at location A.
[2024-11-12 09:56] VITALS: BP 184/52; PULSE 45; RESP 16; TEMP 36.3; O2SAT 100
--- NOTE | 2024-11-12 10:01 | ED_ITS ---
HPI - Fall General Chief Complaint: Fall Stated Complaint: fall Time Seen by Provider: 11/12/24 09:59 Source: patient, family and EMS Mode of arrival: EMS Limitations: dementia History of Present Illness HPI Narrative: Patient is a 84-year-old female hospice patient here for a fall today. Patient had a ground level fall today trying to transfer on her own today. She fell and hit the dresser. She hit her head. She is not on blood thinners. Family wishes to know if there is any abnormal findings but do not wish to proceed with any repairs. Unwitnessed event. She is from the nursing facility. complaint: fall Onset (ago): hour(s) ( One) Fall from: standing and out of bed Fall witnessed: no Place fall occurred: home and residential/SNF Loss of consciousness: unsure Prolonged down time: no Symptoms prior to fall: none ( unknown) Context: tripped/slipped and history of frequent falls Location of injury: head and other ( left shoulder and left hip) Severity: mild Severity scale (1-10): 1 Quality: dull ( only noted with palpation) Associated symptoms (after fall): denies Related Data Home Medications ?Medication ?Instructions ?Recorded ?Confirmed ?Last Taken ?Type allopurinol 100 mg tablet 100 mg PO BID 11/25/20 01/02/24 07/25/21 History duloxetine 30 mg capsule,delayed 30 mg PO DAILY 11/25/20 01/02/24 07/25/21 History release levothyroxine 50 mcg tablet 50 mcg PO DAILY 11/25/20 01/02/24 07/25/21 History lisinopril 20 mg tablet 40 mg PO DAILY 02/04/22 01/02/24 Unknown History sennosides 8.6 mg capsule 8.6 mg PO BID 02/28/23 01/02/24 Unknown History potassium chloride 10 mEq 20 meq PO DAILY 01/02/24 01/02/24 Unknown History tablet,extended release torsemide 10 mg tablet 10 mg PO QAM 01/02/24 01/02/24 Unknown History acetaminophen 500 mg tablet 500 mg PO Q4H PRN pain 06/12/24 Unknown History (Acetaminophen Extra Strength) lorazepam 0.5 mg tablet (Ativan) 0.5 mg PO Q4H PRN anxiety 06/12/24 Unknown History morphine concentrate 20 mg/mL oral 5 mg sublingual Q4H PRN pain 06/12/24 Unknown History syringe (FOR ORAL USE ONLY) omeprazole 40 mg capsule,delayed 40 mg PO DAILY 06/12/24 Unknown History release Allergies Allergy/AdvReac Type Severity Reaction Status Date / Time Sulfa (Sulfonamide Allergy Itching Verified 11/12/24 10:10 Antibiotics) Review of Systems Review of Systems: All systems reviewed & are unremarkable except as noted in HPI and below Constitutional: Constitutional: Reports no additional constitutional complaints Eyes: Eyes: Reports no additional eye complaints ENT: Reports system reviewed and no additional complaints, except as documented Cardiovascular: Cardiovascular: Reports no additional cardiovascular complaints Respiratory: Respiratory: Reports no additional respiratory complaints Gastrointestinal: Gastrointestinal: Reports no additional gastrointestinal complaints Genitourinary: Genitourinary: Reports no additional female genitourinary complaints Musculoskeletal: Musculoskeletal: Reports no additional musculoskeletal complaints Integumentary/Breasts: Skin/Breast: Reports system reviewed and no additional complaints, except as docu Neurologic: Reports system reviewed and no additional complaints, except as documented Psychiatric: Psychiatric: Reports no additional psychiatric complaints Endocrine: Endocrine: Reports no additional endocrine complaints Hematologic/Lymphatic: Hematologic/Lymphatic: Reports no additional hematologic/lymphatic complaints Allergic/Immunologic: Allergic/Immunologic: Reports no additional allergic/immunologic complaints PMFSH Past Medical History Medical History Ovarian mass Acute blood loss anemia Melena GI bleed Anemia Hypothyroid Gout CHF (congestive heart failure) EF 55-60% Cervical cancer Diabetes mellitus HTN (hypertension) Asthma Surgical History Surgical History History of cholecystectomy History of bilateral knee replacement History of total abdominal hysterectomy Family History Family History Father ETOH abuse Mother ETOH abuse Sibling ETOH abuse Grandparent Diabetes mellitus Sibling COPD (chronic obstructive pulmonary disease) Social History Social History Smoking status: Never smoker Second hand tobacco smoke exposure: No Alcohol intake: former Substance use: never Substance use type: does not use Lack of Transportation: No Lack of Food: Never True Current Housing: I Have Housing Concerned About Future Housing: No Difficulty Paying Gas/Electric Bills: No Difficulty Paying for Meds: No Currently Unemployed: No Education: High School Diploma/GED Difficulty w/ Childcare or Family Care: No Living arrangements: with friend(s) Gender identity (if verbalized by the patient): Female Spiritual care concerns: No Exam Const: General: healthy appearing and no acute distress Nutritional Appearance: well nourished Limitations: other limitations ( dementia) HENMT: Head: normal to inspection Ears: external ears normal Face/Nose/Sinus: Normal external nose present Face and sinus: normal facial exam Eyes: Conjunctivae: conjunctivae normal Pupils: Equal, round and reactive pupils present EOM: EOMs intact bilaterally Neck: Neck: normal visual inspection Chest: Chest palpation & inspection: normal inspection of the chest Resp: Effort & Inspection: normal respiratory effort and not labored Auscultation: clear to auscultation bilaterally and no crackles Cardio: Rate: regular rate Rhythm: regular rhythm Heart sounds: no murmurs GI: Inspection: non-distended GI Palp: Yes Soft to palpation and No Tenderness to palpation present (GI) Auscultation: bowels sounds not normal : General: Yes bladder normal to palpation Back/Spine/Pelvis: Back: no CVA tenderness Skin: General skin exam: normal color Rashes: no rashes Wounds: no wounds Neuro: General: moves all extremities, no meningeal signs, no focal motor deficits and CN's II-XI intact bilaterally Other: fast exam is negative, NIH is 0, GCS is 12 with baseline dementia Extrem: General: normal to inspection Psych: Mental Status: mental status grossly normal Affect: normal affect Attitude: cooperative Course Vital Signs Vital signs: Vital Signs Temperature 36.3 C L 11/12/24 09:56 Pulse Rate 45 L 11/12/24 09:56 Respiratory Rate 16 11/12/24 09:56 Blood Pressure 184/52 H 11/12/24 09:56 Pulse Oximetry 100 11/12/24 09:56 Oxygen Delivery Room Air 11/12/24 09:56 Temperature 36.3 C L 11/12/24 09:56 Pulse Rate 45 L 11/12/24 09:56 Respiratory Rate 16 11/12/24 09:56 Blood Pressure 184/52 H 11/12/24 09:56 Pulse Oximetry 100 11/12/24 09:56 Oxygen Delivery Room Air 11/12/24 09:56 MDM - Fall MDM Narrative Medical decision making narrative: patient is a 84-year-old female hospice patient here from the residential due to a ground level fall prior to arrival and sustained a head and left shoulder and left hip injury. We will do x-rays and CT scans. Family does not wish to repair any problems but does want to know if there was any abnormalities. Imaging Data Attestation: I personally reviewed and interpreted this imaging study as follows: Radiologist's impression: CT scan of the head was negative for acute process CT scan of the cervical spine was negative for acute process x-ray left shoulder was negative for acute process x-ray left hip and pelvis were negative for acute process Discharge Plan Discharge Clinical Impression: Fall Qualifiers: Encounter type: initial encounter Qualified Code(s): W19.XXXA - Unspecified fall, initial encounter Patient Disposition: Home Condition: Stable Instructions: Fall Prevention for Older Adults (ED) Patient Language: Chinese Prescriptions: No Action lisinopril 20 mg tablet 40 mg PO DAILY sennosides 8.6 mg Capsule 8.6 mg PO BID atropine 1 % Drops 2 drp RIGHT EYE TID Qty: 0 0RF torsemide 10 mg Tablet 10 mg PO QAM potassium chloride 10 mEq tablet extended release 20 meq PO DAILY lorazepam [Ativan] 0.5 mg tablet 0.5 mg PO Q4H PRN (Reason: anxiety) morphine concentrate 20 mg/mL syringe 5 mg sublingual Q4H PRN (Reason: pain) omeprazole 40 mg capsule,delayed release(DR/EC) 40 mg PO DAILY acetaminophen [Acetaminophen Extra Strength] 500 mg tablet 500 mg PO Q4H PRN (Reason: pain) nitrofurantoin monohyd/m-cryst [Macrobid] 100 mg capsule 100 mg PO Q12H 7 Days Qty: 14 0RF Rx Instructions: must administer with a meal/food allopurinol 100 mg tablet 100 mg PO BID levothyroxine 50 mcg tablet 50 mcg PO DAILY duloxetine 30 mg capsule,delayed release(DR/EC) 30 mg PO DAILY Rx Instructions: 30mg [id number], 20mg sun polyethylene glycol 3350 [Miralax] 17 gram Powder In Packet 17 g PO QAM PRN (Reason: Constipation) Qty: 14 0RF Follow-up/Referrals: Pam Bonner MD [Primary Care Provider] - Time of Disposition: 11:10
[2024-11-12 10:30] VITALS: BP 188/56; PULSE 45; RESP 16; O2SAT 96
[2024-11-12 11:12] VITALS: BP 176/51; PULSE 45; RESP 16; O2SAT 96
[2024-11-12 11:13] VITALS: BP 163/54; PULSE 40; RESP 17; O2SAT 94
== END 2024-11-12 11:13 ==
PROVIDERS: Emergency Provider Emergency Medicine; PCP Internal Medicine
DX: S09.90XA Unspecified injury of head, initial encounter (principal); S49.92XA Unspecified injury of left shoulder and upper arm, initial encounter; S79.912A Unspecified injury of left hip, initial encounter; I11.0 Hypertensive heart disease with heart failure; I50.9 Heart failure, unspecified; E11.9 Type 2 diabetes mellitus without complications; J45.909 Unspecified asthma, uncomplicated; E03.9 Hypothyroidism, unspecified; Z85.41 Personal history of malignant neoplasm of cervix uteri; W01.190A Fall on same level from slipping, tripping and stumbling with subsequent striking against furniture, initial encounter; Y92.129 Unspecified place in nursing home as the place of occurrence of the external cause
CPT/HCPCS: 70450; 72125; 73030; 73502; 99284